=== PATIENT | male | born 1970 | race African-American/Black ===

== ENCOUNTER 2016-09-14 22:58 | Inpatient (IN) | payer OTHER ==
[~2016-09-14] VITALS: Ht 165.1 cm; Wt 52.9 kg
[2016-09-14] MEDS ORDERED: SOD CHLORIDE 0.9% 1,000 ML IV STA (23:17)
[2016-09-14] MEDS ORDERED: ONDANSETRON 4 MG INJ IV STA (23:38)
[2016-09-14 23:58] LABS: ADD SCAN DIFF NO
[2016-09-15] VITALS (12 sets, daily range): BP systolic 112–198; BP diastolic 60–122; PULSE 76–95; RESP 18–20; Ht 165.1 cm; Wt 52.9 kg
[2016-09-15 00:10] LABS: BASOPHILS % 0.5 % (0.0-2.0); EOSINOPHILS # 0.1 10^3/ul (0.0-0.5); EOSINOPHILS % 1.4 % (0.0-7.0); HEMATOCRIT 38.3 % (42.0-52.0); HEMOGLOBIN 13.4 g/dl (14.0-18.0); LYMPHOCYTES # 2.1 10^3/ul (0.8-2.9); LYMPHOCYTES % 38.2 % (15.0-51.0); MEAN CORPUSCULAR HEMOGLOBIN 33.1 pg (29.0-33.0); MEAN CORPUSCULAR VOLUME 94.6 fl (82.0-101.0); MEAN PLATELET VOLUME 9.9 fl (7.4-10.4); MONOCYTE # 0.4 10^3/ul (0.3-0.9); MONOCYTES % 7.3 % (0.0-11.0); NEUTROPHIL # 2.9 10^3/ul (1.6-7.5); NEUTROPHILS % 52.4 % (39.0-77.0); PLATELET COUNT 307 10^3/UL (140-415); RED BLOOD COUNT 4.05 10^6/ul (4.70-6.10); RED CELL DISTRIBUTION WIDTH 12.5 % (11.5-14.5); WHITE BLOOD COUNT 5.6 10^3/ul (4.8-10.8)
[2016-09-15 00:21] LABS: ALBUMIN 4.3 g/dl (3.3-4.9); ALBUMIN/GLOBULIN RATIO 1.13; BILIRUBIN,INDIRECT 0.2 mg/dl (0-1.1); BILIRUBIN,TOTAL 0.2 mg/dl (0.2-1.3); CALCIUM 10.4 mg/dl (8.4-10.2); CREATININE 0.82 mg/dl (0.61-1.24); POTASSIUM 4.3 mmol/L (3.5-5.1); TOTAL PROTEIN 8.1 g/dl (6.1-8.1)
[2016-09-15] MEDS ORDERED: CEFEPIME 2GM/50 ML (PMX) 50 ML IVPB STA (00:56)
[2016-09-15] MEDS ORDERED: SODIUM CHLORIDE 0.9% 1L BAG IV* STA (00:56)
[2016-09-15] MEDS ORDERED: ONDANSETRON 4 MG INJ IV STA (00:56)
[2016-09-15 00:58] LABS: TROPONIN-I 0.654 ng/ml (0.00-0.12)
[2016-09-15] MEDS ORDERED: VANCOMYCIN 1 GM (PMX) 250 ML IVPB ONE (01:00)
[2016-09-15] MEDS ORDERED: METOCLOPRAMIDE 10 MG INJ IV ONE (01:30)
[2016-09-15] MEDS ORDERED: HYDROmorphONE 1 MG/ML SYG IV STA (01:32)
[2016-09-15] MEDS: ASPIRIN 81 MG TAB PO ONE ×2 (01:33→02:27)
--- NOTE | 2016-09-15 01:49 | RADRPT ---
PROCEDURE: Portable chest x-ray. CLINICAL INDICATION: Vomiting. TECHNIQUE: Portable AP view of the chest. COMPARISON: None. FINDINGS: No pulmonary edema or conolidation is identified. The patient is status post median sternotomy and C ABG. The cardiac silhouette is magnified. No pleural effusion is seen. There is no pneumothorax. IMPRESSION: 1. No evidence of acute cardiopulmonary disease. 2. Status post CABG. RPTAT: HTAR .Donovan Diane MD, MD Date Time Electronically viewed and signed by .Donovan Diane MD, on 09/15/2016 01:48 .R/
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
[2016-09-15] MEDS ORDERED: HYDROmorphONE 1 MG/ML SYG IV PRN (04:00)
[2016-09-15] MEDS: METOPROLOL 25 MG TAB PO SCH ×3 (04:00→20:27)
[2016-09-15] MEDS: LOSARTAN 50 MG TAB PO SCH ×2 (04:00→08:29)
[2016-09-15] MEDS: hydrALAzine 20 MG INJ IV PRN ×2 (04:24→15:34)
[2016-09-15] MEDS: NITROGLYCERIN 2% 1 GM OINT PKT TD SCH ×3 (04:24→20:28)
[2016-09-15] MEDS: PANTOPRAZOLE 40 MG INJ IV SCH ×2 (04:39→06:00)
[2016-09-15] MEDS: INSULIN ASPART [NOVOLOG] 3 ML PEN SC SCH ×6 (04:50→20:36)
[2016-09-15 07:14] LABS: ADD SCAN DIFF NO
[2016-09-15 07:18] LABS: BASOPHILS % 0.3 % (0.0-2.0); EOSINOPHILS % 0.4 % (0.0-7.0); HEMATOCRIT 34.5 % (42.0-52.0); HEMOGLOBIN 12.1 g/dl (14.0-18.0); LYMPHOCYTES # 1.5 10^3/ul (0.8-2.9); LYMPHOCYTES % 19.6 % (15.0-51.0); MEAN CORPUSCULAR HEMOGLOBIN 33.1 pg (29.0-33.0); MEAN CORPUSCULAR HGB CONC 35.1 g/dl (32.0-37.0); MEAN CORPUSCULAR VOLUME 94.3 fl (82.0-101.0); MEAN PLATELET VOLUME 9.1 fl (7.4-10.4); MONOCYTE # 0.4 10^3/ul (0.3-0.9); MONOCYTES % 5.9 % (0.0-11.0); NEUTROPHIL # 5.5 10^3/ul (1.6-7.5); NEUTROPHILS % 73.4 % (39.0-77.0); PLATELET COUNT 303 10^3/UL (140-415); RED BLOOD COUNT 3.66 10^6/ul (4.70-6.10); RED CELL DISTRIBUTION WIDTH 12.4 % (11.5-14.5); WHITE BLOOD COUNT 7.5 10^3/ul (4.8-10.8)
[2016-09-15 07:50] LABS: ALBUMIN 3.4 g/dl (3.3-4.9); ALBUMIN/GLOBULIN RATIO 1.17; BILIRUBIN,INDIRECT 0.2 mg/dl (0-1.1); BILIRUBIN,TOTAL 0.2 mg/dl (0.2-1.3); CALCIUM 9.3 mg/dl (8.4-10.2); CREATININE 0.72 mg/dl (0.61-1.24); POTASSIUM 3.9 mmol/L (3.5-5.1); TOTAL PROTEIN 6.3 g/dl (6.1-8.1)
[2016-09-15 09:04] LABS: OPIATES Negative (NEGATIVE)
[2016-09-15 09:09] LABS: ADD UMIC YES; URINE BILIRUBIN (Dip) NEGATIVE (NEGATIVE); URINE BLOOD (Dip) NEGATIVE (NEGATIVE); URINE COLOR LT. YELLOW (YELLOW); URINE GLUCOSE (Dip) >=1000 % (NEGATIVE); URINE KETONES (Dip) NEGATIVE (NEGATIVE); URINE LEUKOCYTE ESTERASE (Dip) NEGATIVE (NEGATIVE); URINE NITRITE (Dip) NEGATIVE (NEGATIVE); URINE TOTAL PROTEIN (Dip) 2+ (NEGATIVE); URINE UROBILINOGEN (Dip) 0.2 E.U./dL (0.1-1.0)
[2016-09-15 09:11] LABS: BARBITURATES Negative (NEGATIVE); BENZODIAZEPINES Negative (NEGATIVE); CANNABINOIDS Negative (NEGATIVE); COCAINE Negative (NEGATIVE)
[2016-09-15 09:36] LABS: URINE RBCS 0-2 /HPF (0)
[2016-09-15] MEDS ORDERED: LORAZEPAM 2 MG INJ IV PRN (10:00)
[2016-09-15] MEDS: HYDROmorphONE 1 MG/ML SYG IV PRN ×3 (10:37→21:44)
[2016-09-15] MEDS: MULTIVITAMINS 10 ML, THIAMINE 100 MG, FOLIC ACID 1 MG in SOD CHLORIDE 0.9% 1,000 ML IVPB SCH (11:44)
[2016-09-15] MEDS ORDERED: GLUCOSE GEL 15 GRAM TUBE BUCCAL PRN (16:00)
[2016-09-15] MEDS ORDERED: GLUCOSE GEL 15 GRAM TUBE PO PRN ×2 (16:00)
[2016-09-15] MEDS ORDERED: GLUCAGON 1 MG INJ IM PRN (16:00)
[2016-09-15] MEDS ORDERED: DEXTROSE 50% 50 ML SYRINGE IV PRN ×2 (16:00)
--- NOTE | 2016-09-15 17:50 | QN ---
Documentation Comment [id number] LUZ GALLEGOS MD September 15, 2016 17:50
[2016-09-15 19:57] LABS: CHOL/HDL RATIO 1.9 RATIO
[2016-09-15] MEDS: ONDANSETRON 4 MG INJ IV PRN (20:27)
--- NOTE | 2016-09-15 20:54 | RADRPT ---
Echocardiogram Report ADDENDUM Patient Name: JG LAW Gender: Male Date: 1970 Study Date: 15-Sep-2016 Global Compensation Director: Suzi Toribio [facility] Location: 5548 Ref. Physician: LUZ GALLEGOS Quality: Adequate Procedures: Transthoracic echocardiogram with complete 2D, M-Mode, and doppler examination. Indications: NSTEMI. 2D/M Mode Doppler Measurement Value Normal Ranges Measurement Value Normal Ranges LVIDd 2D 3.9 3.5 - 5.6 cm AV Peak Dominic 1.4 m/sec LVIDs 2D 3.0 2.1 - 4.1 cm AV Peak PG 8.0 mmHg FS 2D 24.9 % LVOT Peak Dominic 1.0 m/sec LVPWd 2D 1.1 0.6 - 1.1 cm LVOT Peak PG 4.0 mmHg IVSd 2D 1.0 0.6 - 1.1 cm MV E Peak Dominic 0.7 m/sec IVS/LVPW 2D 1.0 MV A Peak Dominic 1.0 m/sec AoR Diam 2D 2.8 2.0 - 3.7 cm MV E/A 0.8 LA/Ao 2D 1 0 - 1 MV Decel Time 173 msec EDV 2D 60.7 cm3 MV E/A 0.8 ESV 2D 25.7 cm3 TR Peak Dominic 2.4 m/sec LA Dimen 2D 3.6 2.3 - 4.0 cm TR Peak PG 23.0 mmHg RVSP 26.0 mmHg Findings Left Ventricle: Normal left ventricular cavity size. Mild concentric left ventricular hypertrophy. Mild left ventricular systolic dysfunction. Ejection fraction is visually estimated at 4550 %. Tissue Doppler/Mitral Doppler indices are consistent with impaired relaxation (Stage I diastolic dysfunction). Right Ventricle: Normal right ventricular size. Normal right ventricular systolic function. Left Atrium: The left atrium is normal in size. Right Atrium: The right atrium is normal in size. Mitral Valve: Mitral valve leaflets appear mildly thickened. Mild mitral annular calcification. Trace mitral regurgitation. Aortic Valve: No significant aortic stenosis or insufficiency. Aortic cusps appear mildly calcified. Tricuspid Valve: Normal appearance of the tricuspid valve. Estimated peak PA systolic pressure 26 mmHg. There is trace tricuspid regurgitation. Pulmonic Valve: Normal pulmonic valve appearance. There is trace pulmonic regurgitation. Pericardium: Normal pericardium with no significant pericardial effusion. Aorta: Normal aortic root. IVC: Normal size and normal respiratory collapse consistent with normal right atrial pressure. Conclusions Normal left ventricular cavity size. Mild concentric left ventricular hypertrophy. Mild left ventricular systolic dysfunction. Ejection fraction is visually estimated at 45-50 %. Tissue Doppler/Mitral Doppler indices are consistent with impaired relaxation (Stage I diastolic dysfunction). Mitral valve leaflets appear mildly thickened. Mild mitral annular calcification. Trace mitral regurgitation. Normal appearance of the tricuspid valve. Estimated peak PA systolic pressure 26 mmHg. There is trace tricuspid regurgitation. Normal pulmonic valve appearance. There is trace pulmonic regurgitation. Electronically Signed By: Daron Green 19-Sep-2016 13:52:03 -0700 [ADDENDUM] Patient Name: JG LAW Study Date: 15-Sep-2016 [id number]
[2016-09-15] MEDS ORDERED: CLONIDINE 0.1 MG/24 HR PATCH TRANSDERM SCH (21:00)
--- NOTE | 2016-09-15 22:54 | HP ---
DATE OF ADMISSION: 09/15/2016 HISTORY OF PRESENT ILLNESS: A 45-year-old male with history of pancreatitis, has been drinking alcohol, presented complaining of chest pain. The patient's blood pressure 147/83. The patient has hematocrit 34.5. The patient's glucose 254. Troponin 0.406. The patient also has troponin 0.536. The patient's chest x-ray shows no evidence of acute cardiopulmonary disease, status post CABG. The patient's EKG shows sinus rhythm with in the inferior leads and nonspecific ST-T changes. PAST MEDICAL HISTORY: Positive for pancreatitis. The patient has no diabetes, hypertension. ALLERGIES: MORPHINE. SOCIAL HISTORY: Positive for smoking and drinking. MEDICATIONS AT HOME: None. FAMILY HISTORY: Positive for hypertension. REVIEW OF SYSTEMS: HEENT: Unremarkable. RESPIRATORY: Unremarkable. CARDIOVASCULAR: Unremarkable. ABDOMEN: As mentioned above. GENITOURINARY: Unremarkable. MUSCULOSKELETAL: Unremarkable. PHYSICAL EXAMINATION: GENERAL: The patient is awake, alert. VITAL SIGNS: Mentioned above. HEENT: Head is atraumatic, normocephalic. Pupils equal, reactive to light. NECK: Supple. No JVD. LUNGS: Clear. CARDIOVASCULAR: S1, S2 normal. ABDOMEN: Soft, nontender. Bowel sounds positive. No palpable mass. EXTREMITIES: No cyanosis, clubbing, edema. CENTRAL NERVOUS SYSTEM: The patient is awake, alert. No focal deficit. IMPRESSION: 1. The patient has uncontrolled diabetes mellitus. 2. Chest pain, rule out myocardial infarction. 3. Alcohol abuse. 4. Positive troponin. PLAN: Continue to give this patient as tolerated diet. The patient is currently on: 1. Banana bag. 2. Cefepime. 3. Vancomycin once. 4. Aspirin. 5. Hydromorphone. 6. Lorazepam. 7. Reglan. 8. Zofran. 9. Protonix. Obtain 2D echo and cardiology consultation, treatment, nitroglycerin p.r.n., banana bag, Ativan. Orders were done. Dictated By: LUZ GALLEGOS MD BS/NTS Conf#: [id number] DID#: [id number] MTDD
[2016-09-16] VITALS (13 sets, daily range): BP systolic 111–188; BP diastolic 69–117; PULSE 71–91; RESP 17–21
--- NOTE | 2016-09-16 00:39 | CONS ---
DATE OF ADMISSION: 09/15/2016 DATE OF CONSULTATION: 09/15/2016 TYPE OF CONSULTATION: Cardiology. REASON FOR CONSULTATION: Positive troponin concerning for non-ST elevation myocardial infarction, a ssess significance. REQUESTING PHYSICIAN: Arvind Gallegos MD HISTORY OF PRESENT ILLNESS: Mr. Dowd is a 45-year-old male with history of hypertension, dyslipid emia, diabetes mellitus, coronary artery disease, status post coronary bypass graft surgery 12 years prior, history of substance abuse with heroin, ongoing tobacco usage, ETOH abuse who initially pres ented with complaints of upper epigastric and chest pain described as a burning sensation occurring at rest after binge drinking. Upon arrival in the emergency department, temperature 97.7, blood pre ssure 169/100, pulse 83, respiratory rate 18, saturating 100%. The patient's labs revealed a white cell count of 5.6, hemoglobin 13.4, platelet count of 307. Sodium 134, potassium 4.3, creatinine 0. 82, BUN 15, glucose 526, AST 43, ALT 36. Troponin positive at 0.654. UA negative. Tox screen nega tive. Lipase 2202. The patient underwent a chest x-ray revealing no evidence of acute coronary art millie disease, status post CABG. The patient's electrocardiogram revealed sinus rhythm, rate 82, norm al axis, normal intervals, inferior biphasic T-wave abnormalities and T-wave inversion in lead V3. The patient subsequently admitted to the floor and since admit to the floor has continued to have ep igastric and chest pain. The patient has had troponins trending down to 0.406. PAST MEDICAL HISTORY: As above in HPI. MEDICATIONS CURRENTLY IN HOSPITAL: 1. Insulin sliding scale. 2. Dilaudid p.r.n. 3. Ativan p.r.n. 4. Hydralazine IV push p.r.n. 5. Nitro paste 1 inch q.12. 6. Losartan 50 mg daily. 7. Metoprolol 25 mg daily. 8. Protonix 40 mg IV daily. ALLERGIES: MORPHINE. SOCIAL HISTORY: Positive tobacco, positive ETOH abuse, history of illicit substance use. FAMILY HISTORY: No history of sudden cardiac or early CAD. REVIEW OF SYSTEMS: As above in HPI. CONSTITUTIONAL: No fevers, chills. PULMONARY: No current shortness of breath. CARDIOVASCULAR: Chest pain, positive troponin. GASTROINTESTINAL: Abdominal pain, pancreatitis. GENITOURINARY: No hematuria. MUSCULOSKELETAL: No significant myalgias, arthralgias. ENDOCRINE: Diabetes mellitus. PHYSICAL EXAMINATION: VITAL SIGNS: Temperature 98.2, blood pressure 169/96, pulse 83, respiratory rate 18, saturating 98% . GENERAL: The patient is alert, awake, complaining of epigastric abdominal pain and chest pain. NECK: JVP approximately 8 cm water. CHEST: Fair air movement throughout, mildly decreased at bases. HEART: Regular rate, rhythm. Normal S1, S2. I/ systolic murmur. Nondisplaced PMI. ABDOMEN: Hypoactive bowel sounds. Diffuse tenderness to palpation greatest in the epigastric regio n. EXTREMITIES: No pitting edema. Pulses 1+ bilaterally at posterior tibial. LABORATORY DATA: As above in HPI. Most recently from today: Sodium 136, potassium 3.9, creatinine of 0.7, BUN 12, glucose 318. Troponin down to 0.406. IMAGING STUDIES: As above in HPI. No further imaging studies for my review at this time. ELECTROCARDIOGRAM: As above in HPI. No further electrocardiograms for my review at this time. IMPRESSION: 1. Positive troponin concerning for non-ST elevation myocardial infarction, assess significance. 2. Chest pain, assess for true non-ST myocardial infarction versus possible type 2 infarction in th e setting of pancreatitis. 3. Hypertension, uncontrolled. 4. Pancreatitis. 5. Diabetes mellitus with uncontrolled blood sugars. 6. Anemia. 7. History of substance abuse. 8. Ongoing tobacco usage. 9. Ethyl alcohol abuse. RECOMMENDATIONS: 1. At this time would maintain the patient on telemetry monitoring to follow rhythm and rate contro l closely. 2. Will write for aspirin as patient is able to take and will place clonidine patch on the patient to improve overall systolic blood pressure control and continue the patient's nitro paste at this ti me. 3. Check a 2D echo to further assess patient's ejection fraction, wall motion, rule out any major v alve abnormalities. 4. Will continue to trend the patient's cardiac enzymes, assess for any significant ongoing cardiac damage. 5. Will change the patient's beta isaac to b.i.d. dosing and will continue it as the patient is a ble to tolerate. 6. Ongoing evaluation of patient's pancreatitis per PMD and GI evaluation. Thank you for allowing me to take part in the care of this patient. I will continue to follow very closely with you with recommendations to be made as the patient progresses through his inpatient hos pital clinical course. Dictated By: JHONATAN SOLIS/LU Conf#: [id number] DID#: [id number] CC: ARVIND GALLEGOS MD;*EndCC*
[2016-09-16] MEDS: POTASSIUM CHLORIDE 10 MEQ in DEXTROSE 5%-0.9% NACL 1,000 ML IV SCH ×2 (01:14→17:25)
[2016-09-16 01:30] LABS: CK-MB 2.51 ng/ml (0.0-2.4); TROPONIN-I 0.306 ng/ml (0.00-0.12)
[2016-09-16] MEDS ORDERED: ACCU-CHEK XX SCH ×2 (02:00)
[2016-09-16] MEDS: ACCU-CHEK XX SCH (02:00)
[2016-09-16] MEDS: HYDROmorphONE 1 MG/ML SYG IV PRN ×4 (03:57→20:07)
[2016-09-16] MEDS: PANTOPRAZOLE 40 MG INJ IV SCH (05:13)
[2016-09-16 08:06] LABS: ADD SCAN DIFF NO
[2016-09-16 08:11] LABS: BASOPHILS % 0.1 % (0.0-2.0); EOSINOPHILS # 0.1 10^3/ul (0.0-0.5); EOSINOPHILS % 0.7 % (0.0-7.0); HEMATOCRIT 41.4 % (42.0-52.0); HEMOGLOBIN 14.1 g/dl (14.0-18.0); LYMPHOCYTES # 1.4 10^3/ul (0.8-2.9); LYMPHOCYTES % 20.3 % (15.0-51.0); MEAN CORPUSCULAR HEMOGLOBIN 32.6 pg (29.0-33.0); MEAN CORPUSCULAR HGB CONC 34.1 g/dl (32.0-37.0); MEAN CORPUSCULAR VOLUME 95.8 fl (82.0-101.0); MEAN PLATELET VOLUME 9.5 fl (7.4-10.4); MONOCYTE # 0.6 10^3/ul (0.3-0.9); MONOCYTES % 8.2 % (0.0-11.0); NEUTROPHILS % 70.3 % (39.0-77.0); PLATELET COUNT 309 10^3/UL (140-415); RED BLOOD COUNT 4.32 10^6/ul (4.70-6.10); RED CELL DISTRIBUTION WIDTH 12.7 % (11.5-14.5); WHITE BLOOD COUNT 7.1 10^3/ul (4.8-10.8)
[2016-09-16] MEDS: LOSARTAN 50 MG TAB PO SCH (08:26)
[2016-09-16] MEDS: ASPIRIN (EC) 81 MG TAB PO SCH (08:27)
[2016-09-16] MEDS: METOPROLOL 25 MG TAB PO SCH ×2 (08:27→20:09)
[2016-09-16] MEDS: NITROGLYCERIN 2% 1 GM OINT PKT TD SCH ×2 (08:27→20:08)
[2016-09-16 08:29] LABS: ALBUMIN 3.4 g/dl (3.3-4.9); BILIRUBIN,INDIRECT 0.5 mg/dl (0-1.1); BILIRUBIN,TOTAL 0.5 mg/dl (0.2-1.3); CREATININE 0.6 mg/dl (0.61-1.24); TOTAL PROTEIN 6.8 g/dl (6.1-8.1)
[2016-09-16] MEDS: INSULIN ASPART [NOVOLOG] 3 ML PEN SC SCH ×4 (08:31→20:12)
[2016-09-16] MEDS: MULTIVITAMINS 10 ML, THIAMINE 100 MG, FOLIC ACID 1 MG in SOD CHLORIDE 0.9% 1,000 ML IVPB SCH (08:32)
[2016-09-16 08:53] LABS: CHOL/HDL RATIO 2.4 RATIO; CK-MB 2.46 ng/ml (0.0-2.4); TROPONIN-I 0.247 ng/ml (0.00-0.12)
--- NOTE | 2016-09-16 10:16 | CONS ---
Date/Time of Note Date/Time of Note DATE: 09/16/16 TIME: 10:14 Assessment/Plan Assessment/Plan Additional Assessment/Plan 1. Positive troponin concerning for non-ST elevation myocardial infarction, assess significance- no cp now, con't HTN Rx 2. Chest pain, assess for true non-ST myocardial infarction versus possible type 2 infarction in the setting of pancreatitis- better 3. Hypertension, uncontrolle- add Rx now 4. Pancreatitis. 5. Diabetes mellitus with uncontrolled blood sugars. 6. Anemia. 7. History of substance abuse - d/c advised 8. Ongoing tobacco usage. 9. Ethyl alcohol abuse. Consultation Date/Type/Reason Admit Date/Time September 15, 2016 at 01:56 Initial Consult Date 24 HR Interval Summary Free Text/Dictation No acute change - BP on high side - will follow. ROS: No fever, no chills, no nausea, no vomiting, no diarrhea/constipation No recent weight changes No chest pain, no PND, no orthopnea No dizziness, blurred vision No thirst, no heat or cold intolerance Exam/Review of Systems Vital Signs Vitals Vital Signs Date Time Temp Pulse Resp B/P Pulse Ox O2 Delivery O2 Flow Rate FiO2 09/16/16 08:34 85 09/16/16 08:01 98.0 18 188/117 100 09/15/16 04:57 Room Air Intake and Output 09/15/16 09/15/16 09/16/16 15:00 23:00 07:00 Intake Total 2250 ml 400 ml Output Total 900 ml 1100 ml Balance 1350 ml -700 ml Exam General: WN/WD/NAD, AOx -3 HEENT: Unicetric/atraumatic/EOMI (follows commands) NECK: JVD elevated, no thyromegaly Lymph: no lymphadenopathy HEART: regular with no S3, II/ systolic murmur at apex LUNGS: Coarse sounds ABD: soft, NT, ND, +BS : Intact Neuro: non focal SKIN: chronic changes EXT: trace edema Results Result Diagram: 09/16/1672609/16/16726 Results 24 hrs Laboratory Tests Test 09/15/16 11:45 09/15/16 11:59 09/15/16 17:17 09/15/16 18:20 Bedside Glucose 266 H 254 H Troponin I 0.406 *H 0.334 *H Test 09/15/16 20:11 09/16/16 00:45 09/16/16 02:23 09/16/16 07:27 Bedside Glucose 212 270 H Creatine Kinase 87 82 Creatine Kinase Index 2.9 3.0 Creatinine Kinase MB (Mass) 2.51 H 2.46 H Troponin I 0.306 *H 0.247 *H White Blood Count 7.1 Red Blood Count 4.32 L Hemoglobin 14.1 Hematocrit 41.4 L Mean Corpuscular Volume 95.8 Mean Corpuscular Hemoglobin 32.6 Mean Corpuscular Hemoglobin Concent 34.1 Red Cell Distribution Width 12.7 Platelet Count 309 Mean Platelet Volume 9.5 Neutrophils % 70.3 Lymphocytes % 20.3 Monocytes % 8.2 Eosinophils % 0.7 Basophils % 0.1 Nucleated Red Blood Cells % 0.0 Neutrophils # 5.0 Lymphocytes # 1.4 Monocytes # 0.6 Eosinophils # 0.1 Basophils # 0.0 Nucleated Red Blood Cells # 0.0 Sodium Level 130 L Potassium Level 4.0 Chloride Level 100 Carbon Dioxide Level 25 Anion Gap 9 Blood Urea Nitrogen 10 Creatinine 0.60 L Glucose Level 247 H Calcium Level 10.0 Total Bilirubin 0.5 Direct Bilirubin 0.00 Indirect Bilirubin 0.5 Aspartate Amino Transf (AST/SGOT) 32 Alanine Aminotransferase (ALT/SGPT) 29 Alkaline Phosphatase 100 Total Protein 6.8 Albumin 3.4 Globulin 3.40 H Albumin/Globulin Ratio 1.00 Triglycerides Level 136 Cholesterol Level 230 H LDL Cholesterol, Calculated 110 # HDL Cholesterol 93 #H Cholesterol/HDL Ratio 2.4 Lipase 1465 H Test 09/16/16 08:06 Bedside Glucose 222 H Medications Medications Current Medications Hydralazine HCl (Apresoline) 10 mg Q6H PRN IV ELEVATED BLOOD PRESSURE Last administered on 09/15/16 15:34; Admin Dose 10 MG; Start 09/15/16 at 04:00 Nitroglycerin (Nitroglycerin 2% Oint) 1 inch Q12 TD Last administered on 08:27; Admin Dose 1 INCH; Start 09/15/16 at 04:00 Losartan Potassium (Cozaar) 50 mg DAILY PO Last administered on 09/16/16 08:26 ; Admin Dose 50 MG; Start 09/15/16 at 04:00 Pantoprazole (Protonix Iv) 40 mg DAILY@06 IV Last administered on 09/16/16 05: 13; Admin Dose 40 MG; Start 09/15/16 at 04:00 Diagnostic Test (Pha) (Accu-Chek) 1 ea 02 XX ; Start 09/16/16 at 02:00 Lorazepam 1 mg 1 mg Q4 PRN IV CONTROL WITHDRAWAL SYMPTOMS; Start 09/15/16 at 10: 00 Multivitamins/ Thiamine HCl/ Folic Acid/Sodium Chloride (Mvi Adult/ Vitamin B1/ Folic Acid/NS) 1,011.2 ml @ 125 mls/ hr DAILY@09 IVPB Last administered on 09/16 08:32; Admin Dose 125 MLS/HR; Start 09/15/16 at 12:00; Stop 09/16/16 at 17: 06 Hydromorphone HCl (Dilaudid) 1 mg Q4H PRN IV PAIN Last administered on 09:07; Admin Dose 1 MG; Start 09/15/16 at 10:30 Miscellaneous Information 1 ea NOTE XX ; Start 09/15/16 at 16:00 Glucose (Glutose) 15 gm Q15M PRN PO DECREASED GLUCOSE; Start 09/15/16 at 16:00 Glucose (Glutose) 22.5 gm Q15M PRN PO DECREASED GLUCOSE; Start 09/15/16 at 16:00 Dextrose (D50w Syringe) 25 ml Q15M PRN IV DECREASED GLUCOSE; Start 09/15/16 at 16:00 Dextrose (D50w Syringe) 50 ml Q15M PRN IV DECREASED GLUCOSE; Start 09/15/16 at 16:00 Glucagon (Glucagen) 1 mg Q15M PRN IM DECREASED GLUCOSE; Start 09/15/16 at 16:00 Glucose (Glutose) 15 gm Q15M PRN BUCCAL DECREASED GLUCOSE; Start 09/15/16 at 16: 00 Metoprolol Tartrate (Lopressor) 25 mg BID PO Last administered on 09/16/16 08: 27; Admin Dose 25 MG; Start 09/15/16 at 21:00 Aspirin (Halfprin) 81 mg DAILY PO Last administered on 09/16/16 08:27; Admin Dose 81 MG; Start 09/16/16 at 09:00 Clonidine HCl (Catapres-Tts 1 Patch) 1 patch Q7D TRANSDERM Last administered on 09/15/16 21:48; Admin Dose 1 PATCH; Start 09/15/16 at 21:00 Ondansetron HCl 4 mg 4 mg Q6H PRN IV NAUSEA AND/OR VOMITING Last administered on 09/15/16 20:27; Admin Dose 4 MG; Start 09/15/16 at 20:30 Potassium Chloride/Dextrose/ Sodium Chloride (KCl/D5-NS) 1,005 ml @ 50 mls/hr Q20H6M IV Last administered on 09/16/16 01:14; Admin Dose 50 MLS/HR; Start 09/15 at 23:30 ANILA MONROY MD September 16, 2016 10:16
--- NOTE | 2016-09-16 12:28 | CONS ---
DATE OF ADMISSION: 09/15/2016 DATE OF CONSULTATION: TYPE OF CONSULTATION: Gastroenterology. Dear Dr. Raines: Thank you for your referral. HISTORY OF PRESENT ILLNESS: The patient is a 45-year-old male with a history of alcohol abuse and p ancreatitis in the past, comes to the hospital complaining of abdominal pain, nausea, vomiting and w eight loss. In the ER, he was evaluated. His lipase was high and he was admitted for further manag ement and treatment. The patient also had a history of coronary artery bypass graft, diabetes melli tus and his troponin level was high. He denies GI bleeding, no fever, no chills. No shortness of b reath. PAST MEDICAL HISTORY: Multiple attacks of pancreatitis in the past, all related to alcoholism as pe r the patient. History of diabetes mellitus. ALLERGIES: MORPHINE. SOCIAL HISTORY: Positive for smoking and drinking, and also takes marijuana. MEDICATIONS AT HOME: None. FAMILY HISTORY: Positive for hypertension. REVIEW OF SYSTEMS: Otherwise negative. PHYSICAL EXAMINATION GENERAL: Thin, well-nourished, not in distress. VITAL SIGNS: Stable. HEENT: Unremarkable. NECK: Supple, no thyromegaly, no lymphadenopathy. CARDIOVASCULAR: No murmur, gallop or click. LUNGS: Clear. ABDOMEN: Soft. Mild tenderness in epigastric area. Bowel sounds good. No mass felt per abdomen. EXTREMITIES: No edema. CENTRAL NERVOUS SYSTEM: Grossly within normal limits. IMPRESSION: 1. Pancreatitis, recurrent headache. 2. Diabetes mellitus. 3. Positive troponin. 4. Alcohol abuse. 5. History of coronary artery bypass graft. 6. Tobacco usage. 7. The patient's LFTs all within normal limits. PLAN: 1. NPO. 2. We will get ultrasound of the abdomen to make sure there is no gallstone. 3. Continue cardiac care. Once the lipase comes on we will start him slowly on liquid diet and adv ance it as tolerated by the patient. 4. In the interim, continue IV hydration and pain management. Dictated By: TANNA BRODY/LU Conf#: [id number] DID#: [id number]
--- NOTE | 2016-09-16 15:55 | RADRPT ---
PROCEDURE: US Abdomen (right upper quadrant). CLINICAL INDICATION: Right upper quadrant abdomen pain. History of pancreatitis. TECHNIQUE: Multiple real-time longitudinal and transverse images of the right upper quadrant of th e abdomen were acquired utilizing a curved array transducer. Images were reviewed on a high-resoluti on PACS workstation. COMPARISON: None FINDINGS: The liver is normal in size and normal in echogenicity. There is no focal hepatic lesion. Color Doppler and pulsed Doppler sonography demonstrate normal an tegrade flow in the portal vein. Gallstones are present in the gallbladder neck. There is no gallbladder wall thickening or fluid ar ound the gallbladder. The bile ducts are normal with the common bile duct measuring 4.5 mm in diameter. The visualized portions of the pancreas are unremarkable with obscuration of the tail of the pancrea s. There is a small amount of free fluid adjacent to the liver. The right kidney measures 9.0 cm. There is normal echogenicity of the right kidney. There is no p erinephric fluid collection. No hydronephrosis, mass, or calculus is seen. IMPRESSION: 1. Gallstones in the gallbladder neck. No evidence of cholecystitis. 2. Small amount of free fluid adjacent to the liver. 3. Otherwise normal right upper quadrant abdomen ultrasound. RPTAT: QQ .Arnel Garcia MD, MD Date Time Electronically viewed and signed by .Arnel Garcia MD, on 09/16/2016 15:54 .R/
[2016-09-16] MEDS: hydrALAzine 20 MG INJ IV PRN (19:20)
--- NOTE | 2016-09-16 20:51 | PN ---
Date/Time of Note Date/Time of Note DATE: 09/16/16 TIME: 20:50 Assessment/Plan VTE Prophylaxis VTE Prophylaxis Intervention: other Lines/Catheters IV C[facility]ter Type (from [facility]): [facility] Urinary Cath still in place: No Assessment/Plan Chief Complaint/Hosp Course IMPRESSION: 1. The patient has uncontrolled diabetes mellitus. 2. Chest pain, rule out myocardial infarction. 3. Alcohol abuse. 4. Positive troponin. 5 pancreatitis 6 htn plan per gi and cardio Problems: Subjective 24 Hr Interval Summary Subjective hx not possible: other (abd pain +) Exam/Review of Systems Vital Signs Vitals Vital Signs Date Time Temp Pulse Resp B/P Pulse Ox O2 Delivery O2 Flow Rate FiO2 09/16/16 20:00 98.7 86 17 180/100 99 09/15/16 04:57 Room Air Intake and Output 09/15/16 09/15/16 09/16/16 14:59 22:59 06:59 Intake Total 2250 ml 400 ml Output Total 900 ml 1100 ml Balance 1350 ml -700 ml Exam Neck: supple Respiratory: clear to auscultation Cardiovascular: regular rate and rhythm Gastrointestinal: soft Musculoskeletal: nl extremities to inspection Extremities: normal pulses Results Result Diagram: 09/16/1672609/16/16726 Results 24 hrs Laboratory Tests Test 09/16/16 00:45 09/16/16 02:23 09/16/16 07:27 09/16/16 08:06 Creatine Kinase 87 82 Creatine Kinase Index 2.9 3.0 Creatinine Kinase MB (Mass) 2.51 H 2.46 H Troponin I 0.306 *H 0.247 *H Bedside Glucose 270 H 222 H White Blood Count 7.1 Red Blood Count 4.32 L Hemoglobin 14.1 Hematocrit 41.4 L Mean Corpuscular Volume 95.8 Mean Corpuscular Hemoglobin 32.6 Mean Corpuscular Hemoglobin Concent 34.1 Red Cell Distribution Width 12.7 Platelet Count 309 Mean Platelet Volume 9.5 Neutrophils % 70.3 Lymphocytes % 20.3 Monocytes % 8.2 Eosinophils % 0.7 Basophils % 0.1 Nucleated Red Blood Cells % 0.0 Neutrophils # 5.0 Lymphocytes # 1.4 Monocytes # 0.6 Eosinophils # 0.1 Basophils # 0.0 Nucleated Red Blood Cells # 0.0 Sodium Level 130 L Potassium Level 4.0 Chloride Level 100 Carbon Dioxide Level 25 Anion Gap 9 Blood Urea Nitrogen 10 Creatinine 0.60 L Glucose Level 247 H Calcium Level 10.0 Total Bilirubin 0.5 Direct Bilirubin 0.00 Indirect Bilirubin 0.5 Aspartate Amino Transf (AST/SGOT) 32 Alanine Aminotransferase (ALT/SGPT) 29 Alkaline Phosphatase 100 Total Protein 6.8 Albumin 3.4 Globulin 3.40 H Albumin/Globulin Ratio 1.00 Triglycerides Level 136 Cholesterol Level 230 H LDL Cholesterol, Calculated 110 # HDL Cholesterol 93 #H Cholesterol/HDL Ratio 2.4 Lipase 1465 H Test 09/16/16 12:41 09/16/16 17:14 09/16/16 20:12 Bedside Glucose 181 197 176 Medications Medications Current Medications Hydralazine HCl (Apresoline) 10 mg Q6H PRN IV ELEVATED BLOOD PRESSURE Last administered on 09/16/16 19:20; Admin Dose 10 MG; Start 09/15/16 at 04:00 Nitroglycerin (Nitroglycerin 2% Oint) 1 inch Q12 TD Last administered on 20:08; Admin Dose 1 INCH; Start 09/15/16 at 04:00 Losartan Potassium (Cozaar) 50 mg DAILY PO Last administered on 09/16/16 08:26 ; Admin Dose 50 MG; Start 09/15/16 at 04:00 Pantoprazole (Protonix Iv) 40 mg DAILY@06 IV Last administered on 09/16/16 05: 13; Admin Dose 40 MG; Start 09/15/16 at 04:00 Diagnostic Test (Pha) (Accu-Chek) 1 ea 02 XX ; Start 09/16/16 at 02:00 Lorazepam (Ativan) 1 mg Q4 PRN IV CONTROL WITHDRAWAL SYMPTOMS; Start 09/15/16 at 10:00 Hydromorphone HCl (Dilaudid) 1 mg Q4H PRN IV PAIN Last administered on 20:07; Admin Dose 1 MG; Start 09/15/16 at 10:30 Miscellaneous Information 1 ea NOTE XX ; Start 09/15/16 at 16:00 Glucose (Glutose) 15 gm Q15M PRN PO DECREASED GLUCOSE; Start 09/15/16 at 16:00 Glucose (Glutose) 22.5 gm Q15M PRN PO DECREASED GLUCOSE; Start 09/15/16 at 16:00 Dextrose (D50w Syringe) 25 ml Q15M PRN IV DECREASED GLUCOSE; Start 09/15/16 at 16:00 Dextrose (D50w Syringe) 50 ml Q15M PRN IV DECREASED GLUCOSE; Start 09/15/16 at 16:00 Glucagon (Glucagen) 1 mg Q15M PRN IM DECREASED GLUCOSE; Start 09/15/16 at 16:00 Glucose (Glutose) 15 gm Q15M PRN BUCCAL DECREASED GLUCOSE; Start 09/15/16 at 16: 00 Metoprolol Tartrate (Lopressor) 25 mg BID PO Last administered on 09/16/16 20: 09; Admin Dose 25 MG; Start 09/15/16 at 21:00 Aspirin (Halfprin) 81 mg DAILY PO Last administered on 09/16/16 08:27; Admin Dose 81 MG; Start 09/16/16 at 09:00 Clonidine HCl (Catapres-Tts 1 Patch) 1 patch Q7D TRANSDERM Last administered on 09/15/16 21:48; Admin Dose 1 PATCH; Start 09/15/16 at 21:00 Ondansetron HCl 4 mg 4 mg Q6H PRN IV NAUSEA AND/OR VOMITING Last administered on 09/15/16 20:27; Admin Dose 4 MG; Start 09/15/16 at 20:30 Potassium Chloride/Dextrose/ Sodium Chloride (KCl/D5-NS) 1,005 ml @ 50 mls/hr Q20H6M IV Last administered on 09/16/16 17:25; Admin Dose 50 MLS/HR; Start 09/15 at 23:30 Nifedipine (Procardia Xl) 60 mg DAILY PO ; Start 09/17/16 at 09:00 Polyethylene Glycol (Miralax) 17 gm DAILY PRN PO CONSTIPATION; Start 09/16/16 at 20:00 LUZ GALLEGOS MD September 16, 2016 20:51
[2016-09-16] MEDS ORDERED: POLYETHYLENE GLYCOL 3350 119 GM POWDER PO SCH (21:00)
[2016-09-16] MEDS: POLYETHYLENE GLYCOL 17 GM PACKET PO PRN (21:41)
[2016-09-17] VITALS (12 sets, daily range): BP systolic 111–163; BP diastolic 62–93; PULSE 66–136; RESP 18–20
[2016-09-17] MEDS: ACCU-CHEK XX SCH (02:00)
[2016-09-17] MEDS: HYDROmorphONE 1 MG/ML SYG IV PRN ×5 (03:43→21:26)
[2016-09-17] MEDS: PANTOPRAZOLE 40 MG INJ IV SCH (05:18)
[2016-09-17 08:08] LABS: ALBUMIN 3.3 g/dl (3.3-4.9)
[2016-09-17 08:09] LABS: POTASSIUM 3.6 mmol/L (3.5-5.1)
[2016-09-17 08:11] LABS: BILIRUBIN,INDIRECT 0.5 mg/dl (0-1.1); BILIRUBIN,TOTAL 0.5 mg/dl (0.2-1.3); CREATININE 0.63 mg/dl (0.61-1.24); TOTAL PROTEIN 6.6 g/dl (6.1-8.1)
[2016-09-17 08:12] LABS: CALCIUM 9.7 mg/dl (8.4-10.2)
[2016-09-17] MEDS: INSULIN ASPART [NOVOLOG] 3 ML PEN SC SCH ×4 (08:39→21:31)
[2016-09-17] MEDS: POLYETHYLENE GLYCOL 17 GM PACKET PO PRN (08:41)
[2016-09-17] MEDS: NIFEdipine (XL) 60 MG TAB PO SCH (08:42)
[2016-09-17] MEDS: LOSARTAN 50 MG TAB PO SCH (08:43)
[2016-09-17] MEDS: NITROGLYCERIN 2% 1 GM OINT PKT TD SCH ×2 (08:43→21:29)
[2016-09-17] MEDS: ASPIRIN (EC) 81 MG TAB PO SCH (08:43)
[2016-09-17] MEDS: METOPROLOL 25 MG TAB PO SCH ×2 (08:43→21:28)
--- NOTE | 2016-09-17 14:47 | CONS ---
Date/Time of Note Date/Time of Note DATE: 09/17/16 TIME: 14:32 Assessment/Plan Assessment/Plan Chief Complaint/Hosp Course IMPRESSION: 1. Positive troponin concerning for non-ST elevation myocardial infarction, assess significance.-downtrended cardiac enzymes. EF 50% by echo this admit 2. Chest pain, assess for true non-ST myocardial infarction versus possible type 2 infarction in the setting of pancreatitis. C/O ongoing burning chest pain 3. Hypertension, uncontrolled. 4. Pancreatitis. 5. Diabetes mellitus with uncontrolled blood sugars. 6. Anemia. 7. History of substance abuse. 8. Ongoing tobacco usage. 9. Ethyl alcohol abuse. Recc: _tele -serial ecg's -Continue asa -Continue BB/clonidine TTS/procardia -Continue NTP -Contineu PPI -Lexiscan versus direct cath to determine significance of positive tropopnin once pancreatitis improved Problems: Consultation Date/Type/Reason Admit Date/Time September 15, 2016 at 01:56 Initial Consult Date 09/15/2016 Type of Consultation: Cardiology Reason for Consultation positive troponin Referring Provider: LUZ GALLEGOS Exam/Review of Systems Vital Signs Vitals Vital Signs Date Time Temp Pulse Resp B/P Pulse Ox O2 Delivery O2 Flow Rate FiO2 09/17/16 12:16 68 09/17/16 11:34 98.3 18 119/62 98 09/16/16 21:00 Room Air 2.0 Intake and Output 09/16/16 09/16/16 09/17/16 15:00 23:00 07:00 Intake Total 500 ml 1600 ml 500 ml Output Total 900 ml Balance 500 ml 1600 ml -400 ml Exam Review of Systems: CONSTITUTIONAL: No fevers, chills. PULMONARY: No sob CARDIOVASCULAR:C/O chest pain/palpitations GASTROINTESTINAL: No nausea/vomiting. GENITOURINARY: No hematuria/dysuria. MUSCULOSKELETAL: No myagias/arthalgias. PSYCHIATRIC: The patient denies depression. NEUROLOGIC: No weakness Constitutional: alert, oriented Psych: no complaints Head: normocephalic ENMT: mucosa pink and moist Neck: jvd (9 cm water), supple Respiratory: diminished breath sounds Cardiovascular: regular rate and rhythm Gastrointestinal: non-tender, soft Musculoskeletal: muscle tone (normal) Extremities: edema (none) Neurological: other (No focal deficits) Results Result Diagram: 09/16/16 0727 09/17/16 0659 Results 24 hrs Laboratory Tests Test 09/16/16 17:14 09/16/16 20:12 09/17/16 06:59 09/17/16 08:18 Bedside Glucose 197 176 241 H Sodium Level 133 L Potassium Level 3.6 Chloride Level 97 Carbon Dioxide Level 26 Anion Gap 14 Blood Urea Nitrogen 10 Creatinine 0.63 Glucose Level 300 H Calcium Level 9.7 Total Bilirubin 0.5 Direct Bilirubin 0.00 Indirect Bilirubin 0.5 Aspartate Amino Transf (AST/SGOT) 29 Alanine Aminotransferase (ALT/SGPT) 23 Alkaline Phosphatase 88 Total Protein 6.6 Albumin 3.3 Globulin 3.30 H Albumin/Globulin Ratio 1.00 Lipase 734 H Test 09/17/16 11:49 Bedside Glucose 257 H Medications Medications Current Medications Hydralazine HCl (Apresoline) 10 mg Q6H PRN IV ELEVATED BLOOD PRESSURE Last administered on 09/16/16 19:20; Admin Dose 10 MG; Start 09/15/16 at 04:00 Nitroglycerin (Nitroglycerin 2% Oint) 1 inch Q12 TD Last administered on 08:43; Admin Dose 1 INCH; Start 09/15/16 at 04:00 Losartan Potassium (Cozaar) 50 mg DAILY PO Last administered on 09/17/16 08:43 ; Admin Dose 50 MG; Start 09/15/16 at 04:00 Pantoprazole (Protonix Iv) 40 mg DAILY@06 IV Last administered on 09/17/16 05: 18; Admin Dose 40 MG; Start 09/15/16 at 04:00 Diagnostic Test (Pha) (Accu-Chek) 1 ea 02 XX ; Start 09/16/16 at 02:00 Lorazepam (Ativan) 1 mg Q4 PRN IV CONTROL WITHDRAWAL SYMPTOMS; Start 09/15/16 at 10:00 Hydromorphone HCl (Dilaudid) 1 mg Q4H PRN IV PAIN Last administered on 13:21; Admin Dose 1 MG; Start 09/15/16 at 10:30 Miscellaneous Information 1 ea NOTE XX ; Start 09/15/16 at 16:00 Glucose (Glutose) 15 gm Q15M PRN PO DECREASED GLUCOSE; Start 09/15/16 at 16:00 Glucose (Glutose) 22.5 gm Q15M PRN PO DECREASED GLUCOSE; Start 09/15/16 at 16:00 Dextrose (D50w Syringe) 25 ml Q15M PRN IV DECREASED GLUCOSE; Start 09/15/16 at 16:00 Dextrose (D50w Syringe) 50 ml Q15M PRN IV DECREASED GLUCOSE; Start 09/15/16 at 16:00 Glucagon (Glucagen) 1 mg Q15M PRN IM DECREASED GLUCOSE; Start 09/15/16 at 16:00 Glucose (Glutose) 15 gm Q15M PRN BUCCAL DECREASED GLUCOSE; Start 09/15/16 at 16: 00 Metoprolol Tartrate (Lopressor) 25 mg BID PO Last administered on 09/17/16 08: 43; Admin Dose 25 MG; Start 09/15/16 at 21:00 Aspirin (Halfprin) 81 mg DAILY PO Last administered on 09/17/16 08:43; Admin Dose 81 MG; Start 09/16/16 at 09:00 Clonidine HCl (Catapres-Tts 1 Patch) 1 patch Q7D TRANSDERM Last administered on 09/15/16 21:48; Admin Dose 1 PATCH; Start 09/15/16 at 21:00 Ondansetron HCl 4 mg 4 mg Q6H PRN IV NAUSEA AND/OR VOMITING Last administered on 09/15/16 20:27; Admin Dose 4 MG; Start 09/15/16 at 20:30 Potassium Chloride/Dextrose/ Sodium Chloride (KCl/D5-NS) 1,005 ml @ 50 mls/hr Q20H6M IV Last administered on 09/16/16 17:25; Admin Dose 50 MLS/HR; Start 09/15 at 23:30 Nifedipine (Procardia Xl) 60 mg DAILY PO Last administered on 09/17/16 08:42; Admin Dose 60 MG; Start 09/17/16 at 09:00 Polyethylene Glycol (Miralax) 17 gm DAILY PRN PO CONSTIPATION Last administered on 09/17/16 08:41; Admin Dose 17 GM; Start 09/16/16 at 20:00 JHONATAN TURNER September 17, 2016 14:44
--- NOTE | 2016-09-17 15:56 | CONS ---
Date/Time of Note Date/Time of Note DATE: 09/17/16 TIME: 15:55 Assessment/Plan Assessment/Plan Additional Assessment/Plan IMPRESSION: 1. Pancreatitis, recurrent, sonogram of the abdomen is negative except for a gallstone, clinically better 2. Diabetes mellitus. 3. Positive troponin. 4. Alcohol abuse. 5. History of coronary artery bypass graft. 6. Tobacco usage. 7. The patient's LFTs all within normal limits. Plan Advance the diet IV fluid Pain management Consultation Date/Type/Reason Admit Date/Time September 15, 2016 at 01:56 Initial Consult Date Type of Consultation: Cardiology Referring Provider: LUZ GALLEGOS MD 24 HR Interval Summary Free Text/Dictation No chest pain or shortness of breath Abdominal pain much better Patient is hungry and wants solid food Constitutional: improved Exam/Review of Systems Vital Signs Vitals Vital Signs Date Time Temp Pulse Resp B/P Pulse Ox O2 Delivery O2 Flow Rate FiO2 09/17/16 15:44 97.8 73 18 132/75 99 09/16/16 21:00 Room Air 2.0 Intake and Output 09/16/16 09/16/16 09/17/16 15:00 23:00 07:00 Intake Total 500 ml 1600 ml 500 ml Output Total 900 ml Balance 500 ml 1600 ml -400 ml Exam Constitutional: alert, oriented, well developed Psych: nl mood/affect, no complaints Head: atraumatic, normocephalic Eyes: EOMI, PERRL, nl conjunctiva, nl lids, nl sclera ENMT: nl external ears & nose, nl lips & teeth, nl nasal mucosa & septum Neck: non-tender, supple Respiratory: clear to auscultation, normal air movement Cardiovascular: nl pulses, regular rate and rhythm Gastrointestinal: nl liver, spleen, non-tender, soft Musculoskeletal: nl extremities to inspection, nl gait and stance Extremities: normal pulses Neurological: RF TEST ENGINEER II-XII intact, nl mental status, nl speech, nl strength Skin: nl turgor, No rash or lesions Lymph: nl lymph nodes Results Result Diagram: 09/16/16 0727 09/17/16 0659 Results 24 hrs Laboratory Tests Test 09/16/16 17:14 09/16/16 20:12 09/17/16 06:59 09/17/16 08:18 Bedside Glucose 197 176 241 H Sodium Level 133 L Potassium Level 3.6 Chloride Level 97 Carbon Dioxide Level 26 Anion Gap 14 Blood Urea Nitrogen 10 Creatinine 0.63 Glucose Level 300 H Calcium Level 9.7 Total Bilirubin 0.5 Direct Bilirubin 0.00 Indirect Bilirubin 0.5 Aspartate Amino Transf (AST/SGOT) 29 Alanine Aminotransferase (ALT/SGPT) 23 Alkaline Phosphatase 88 Total Protein 6.6 Albumin 3.3 Globulin 3.30 H Albumin/Globulin Ratio 1.00 Lipase 734 H Test 09/17/16 11:49 Bedside Glucose 257 H Medications Medications Current Medications Hydralazine HCl (Apresoline) 10 mg Q6H PRN IV ELEVATED BLOOD PRESSURE Last administered on 09/16/16 19:20; Admin Dose 10 MG; Start 09/15/16 at 04:00 Nitroglycerin (Nitroglycerin 2% Oint) 1 inch Q12 TD Last administered on 08:43; Admin Dose 1 INCH; Start 09/15/16 at 04:00 Losartan Potassium (Cozaar) 50 mg DAILY PO Last administered on 09/17/16 08:43 ; Admin Dose 50 MG; Start 09/15/16 at 04:00 Pantoprazole (Protonix Iv) 40 mg DAILY@06 IV Last administered on 09/17/16 05: 18; Admin Dose 40 MG; Start 09/15/16 at 04:00 Diagnostic Test (Pha) (Accu-Chek) 1 ea 02 XX ; Start 09/16/16 at 02:00 Lorazepam (Ativan) 1 mg Q4 PRN IV CONTROL WITHDRAWAL SYMPTOMS; Start 09/15/16 at 10:00 Hydromorphone HCl (Dilaudid) 1 mg Q4H PRN IV PAIN Last administered on 13:21; Admin Dose 1 MG; Start 09/15/16 at 10:30 Miscellaneous Information 1 ea NOTE XX ; Start 09/15/16 at 16:00 Glucose (Glutose) 15 gm Q15M PRN PO DECREASED GLUCOSE; Start 09/15/16 at 16:00 Glucose (Glutose) 22.5 gm Q15M PRN PO DECREASED GLUCOSE; Start 09/15/16 at 16:00 Dextrose (D50w Syringe) 25 ml Q15M PRN IV DECREASED GLUCOSE; Start 09/15/16 at 16:00 Dextrose (D50w Syringe) 50 ml Q15M PRN IV DECREASED GLUCOSE; Start 09/15/16 at 16:00 Glucagon (Glucagen) 1 mg Q15M PRN IM DECREASED GLUCOSE; Start 09/15/16 at 16:00 Glucose (Glutose) 15 gm Q15M PRN BUCCAL DECREASED GLUCOSE; Start 09/15/16 at 16: 00 Metoprolol Tartrate (Lopressor) 25 mg BID PO Last administered on 09/17/16 08: 43; Admin Dose 25 MG; Start 09/15/16 at 21:00 Aspirin (Halfprin) 81 mg DAILY PO Last administered on 09/17/16 08:43; Admin Dose 81 MG; Start 09/16/16 at 09:00 Clonidine HCl (Catapres-Tts 1 Patch) 1 patch Q7D TRANSDERM Last administered on 09/15/16 21:48; Admin Dose 1 PATCH; Start 09/15/16 at 21:00 Ondansetron HCl 4 mg 4 mg Q6H PRN IV NAUSEA AND/OR VOMITING Last administered on 09/15/16 20:27; Admin Dose 4 MG; Start 09/15/16 at 20:30 Potassium Chloride/Dextrose/ Sodium Chloride (KCl/D5-NS) 1,005 ml @ 50 mls/hr Q20H6M IV Last administered on 09/16/16 17:25; Admin Dose 50 MLS/HR; Start 09/15 at 23:30 Nifedipine (Procardia Xl) 60 mg DAILY PO Last administered on 09/17/16 08:42; Admin Dose 60 MG; Start 09/17/16 at 09:00 Polyethylene Glycol (Miralax) 17 gm DAILY PRN PO CONSTIPATION Last administered on 09/17/16 08:41; Admin Dose 17 GM; Start 09/16/16 at 20:00 Insulin Glargine (Lantus) 15 unit DAILY@20 SC ; Start 09/17/16 at 20:00 TANNA CASAS MD September 17, 2016 15:56
[2016-09-17] MEDS: POTASSIUM CHLORIDE 10 MEQ in DEXTROSE 5%-0.9% NACL 1,000 ML IV SCH (16:16)
[2016-09-17] MEDS: INSULIN GLARGINE [LANtus] 3 ML PEN SC SCH (21:32)
--- NOTE | 2016-09-17 23:42 | PN ---
Date/Time of Note Date/Time of Note DATE: 09/17/16 TIME: 23:41 Assessment/Plan VTE Prophylaxis VTE Prophylaxis Intervention: other Lines/Catheters IV [facility]from [facility] Peripheral IV Urinary Cath still in place: No Assessment/Plan Chief Complaint/Hosp Course IMPRESSION: 1. The patient has uncontrolled diabetes mellitus. 2. Chest pain, rule out myocardial infarction. 3. Alcohol abuse. 4. Positive troponin. 5 pancreatitis 6 htn plan per gi and cardio ck labs Problems: Subjective 24 Hr Interval Summary Respiratory: no complaints Cardiovascular: no complaints Exam/Review of Systems Vital Signs Vitals Vital Signs Date Time Temp Pulse Resp B/P Pulse Ox O2 Delivery O2 Flow Rate FiO2 09/17/16 20:07 83 09/17/16 19:47 97.6 20 111/70 98 09/16/16 21:00 Room Air 2.0 Intake and Output 09/16/16 09/16/16 09/17/16 15:00 23:00 07:00 Intake Total 500 ml 1600 ml 500 ml Output Total 900 ml Balance 500 ml 1600 ml -400 ml Exam Neck: supple Respiratory: clear to auscultation Cardiovascular: regular rate and rhythm Gastrointestinal: soft Results Result Diagram: 09/16/16 0727 09/17/16 0659 Results 24 hrs Laboratory Tests Test 09/17/16 06:59 09/17/16 08:18 09/17/16 11:49 09/17/16 16:55 Sodium Level 133 L Potassium Level 3.6 Chloride Level 97 Carbon Dioxide Level 26 Anion Gap 14 Blood Urea Nitrogen 10 Creatinine 0.63 Glucose Level 300 H Calcium Level 9.7 Total Bilirubin 0.5 Direct Bilirubin 0.00 Indirect Bilirubin 0.5 Aspartate Amino Transf (AST/SGOT) 29 Alanine Aminotransferase (ALT/SGPT) 23 Alkaline Phosphatase 88 Total Protein 6.6 Albumin 3.3 Globulin 3.30 H Albumin/Globulin Ratio 1.00 Lipase 734 H Bedside Glucose 241 H 257 H 216 Test 09/17/16 20:55 Bedside Glucose 369 H Medications Medications Current Medications Hydralazine HCl (Apresoline) 10 mg Q6H PRN IV ELEVATED BLOOD PRESSURE Last administered on 09/16/16 19:20; Admin Dose 10 MG; Start 09/15/16 at 04:00 Nitroglycerin (Nitroglycerin 2% Oint) 1 inch Q12 TD Last administered on 21:29; Admin Dose 1 INCH; Start 09/15/16 at 04:00 Losartan Potassium (Cozaar) 50 mg DAILY PO Last administered on 09/17/16 08:43 ; Admin Dose 50 MG; Start 09/15/16 at 04:00 Diagnostic Test (Pha) (Accu-Chek) 1 ea 02 XX ; Start 09/16/16 at 02:00 Lorazepam (Ativan) 1 mg Q4 PRN IV CONTROL WITHDRAWAL SYMPTOMS; Start 09/15/16 at 10:00 Hydromorphone HCl (Dilaudid) 1 mg Q4H PRN IV PAIN Last administered on 21:26; Admin Dose 1 MG; Start 09/15/16 at 10:30 Miscellaneous Information 1 ea NOTE XX ; Start 09/15/16 at 16:00 Glucose (Glutose) 15 gm Q15M PRN PO DECREASED GLUCOSE; Start 09/15/16 at 16:00 Glucose (Glutose) 22.5 gm Q15M PRN PO DECREASED GLUCOSE; Start 09/15/16 at 16:00 Dextrose (D50w Syringe) 25 ml Q15M PRN IV DECREASED GLUCOSE; Start 09/15/16 at 16:00 Dextrose (D50w Syringe) 50 ml Q15M PRN IV DECREASED GLUCOSE; Start 09/15/16 at 16:00 Glucagon (Glucagen) 1 mg Q15M PRN IM DECREASED GLUCOSE; Start 09/15/16 at 16:00 Glucose (Glutose) 15 gm Q15M PRN BUCCAL DECREASED GLUCOSE; Start 09/15/16 at 16: 00 Metoprolol Tartrate (Lopressor) 25 mg BID PO Last administered on 09/17/16 21: 28; Admin Dose 25 MG; Start 09/15/16 at 21:00 Aspirin (Halfprin) 81 mg DAILY PO Last administered on 09/17/16 08:43; Admin Dose 81 MG; Start 09/16/16 at 09:00 Clonidine HCl (Catapres-Tts 1 Patch) 1 patch Q7D TRANSDERM Last administered on 09/15/16 21:48; Admin Dose 1 PATCH; Start 09/15/16 at 21:00 Ondansetron HCl 4 mg 4 mg Q6H PRN IV NAUSEA AND/OR VOMITING Last administered on 09/15/16 20:27; Admin Dose 4 MG; Start 09/15/16 at 20:30 Potassium Chloride/Dextrose/ Sodium Chloride (KCl/D5-NS) 1,005 ml @ 50 mls/hr Q20H6M IV Last administered on 09/17/16 16:16; Admin Dose 50 MLS/HR; Start 09/15/16 at 23:30 Nifedipine (Procardia Xl) 60 mg DAILY PO Last administered on 09/17/16 08:42; Admin Dose 60 MG; Start 09/17/16 at 09:00 Polyethylene Glycol (Miralax) 17 gm DAILY PRN PO CONSTIPATION Last administered on 09/17/16 08:41; Admin Dose 17 GM; Start 09/16/16 at 20:00 Insulin Glargine (Lantus) 15 unit DAILY@20 SC Last administered on 09/17/16 21 :32; Admin Dose 15 UNIT; Start 09/17/16 at 20:00 Pantoprazole (Protonix Tab) 40 mg DAILY@06 PO ; Start 09/18/16 at 06:00 LUZ GALLEGOS MD September 17, 2016 23:42
[2016-09-18] VITALS (12 sets, daily range): BP systolic 109–145; BP diastolic 60–111; PULSE 72–88; RESP 18–20
[2016-09-18] MEDS: HYDROmorphONE 1 MG/ML SYG IV PRN ×5 (01:58→20:39)
[2016-09-18] MEDS: ACCU-CHEK XX SCH (02:00)
[2016-09-18] MEDS: PANTOPRAZOLE (EC) 40 MG TAB PO SCH (06:10)
[2016-09-18] MEDS: INSULIN ASPART [NOVOLOG] 3 ML PEN SC SCH ×4 (08:00→20:45)
[2016-09-18] MEDS: NIFEdipine (XL) 60 MG TAB PO SCH (10:50)
[2016-09-18] MEDS: ASPIRIN (EC) 81 MG TAB PO SCH (10:50)
[2016-09-18] MEDS: METOPROLOL 25 MG TAB PO SCH ×2 (10:50→20:39)
[2016-09-18] MEDS: LOSARTAN 50 MG TAB PO SCH (10:51)
[2016-09-18] MEDS: NITROGLYCERIN 2% 1 GM OINT PKT TD SCH ×2 (10:52→20:40)
--- NOTE | 2016-09-18 10:53 | CONS ---
Date/Time of Note Date/Time of Note DATE: 09/18/16 TIME: 10:48 Assessment/Plan Assessment/Plan Additional Assessment/Plan IMPRESSION: 1. Pancreatitis, recurrent, sonogram of the abdomen is negative except for a gallstone, clinically better 2. Diabetes mellitus. 3. Positive troponin. 4. Alcohol abuse. 5. History of coronary artery bypass graft. 6. Tobacco usage. 7. The patient's LFTs all within normal limits. Plan Advance the diet IV fluid Pain management Routine lab Consultation Date/Type/Reason Admit Date/Time September 15, 2016 at 01:56 Type of Consultation: Cardiology Referring Provider: LUZ GALLEGOS MD 24 HR Interval Summary Free Text/Dictation Patient complains of abdominal pain No chest pain or shortness of breath. Patient is ambulating Exam/Review of Systems Vital Signs Vitals Vital Signs Date Time Temp Pulse Resp B/P Pulse Ox O2 Delivery O2 Flow Rate FiO2 09/18/16 08:45 83 09/18/16 07:48 97.9 18 127/82 90 09/16/16 21:00 Room Air 2.0 Intake and Output 09/17/16 09/17/16 09/18/16 15:00 23:00 07:00 Intake Total 1000 ml 500 ml Output Total 400 ml Balance 1000 ml 100 ml Exam Constitutional: alert, oriented, well developed Psych: nl mood/affect, no complaints Head: atraumatic, normocephalic Eyes: EOMI, PERRL, nl conjunctiva, nl lids, nl sclera ENMT: nl external ears & nose, nl lips & teeth, nl nasal mucosa & septum Neck: non-tender, supple Respiratory: clear to auscultation, normal air movement Cardiovascular: nl pulses, regular rate and rhythm Gastrointestinal: nl liver, spleen, non-tender, soft Musculoskeletal: nl extremities to inspection, nl gait and stance Extremities: normal pulses Neurological: FRAUD ANALYST II-XII intact, nl mental status, nl speech, nl strength Skin: nl turgor, No rash or lesions Lymph: nl lymph nodes Results Result Diagram: 09/16/16 0727 09/17/16 0659 Results 24 hrs Laboratory Tests Test 09/17/16 11:49 09/17/16 16:55 09/17/16 20:55 09/18/16 02:26 Bedside Glucose 257 H 216 369 H 177 Test 09/18/16 08:32 Bedside Glucose 81 Medications Medications Current Medications Hydralazine HCl (Apresoline) 10 mg Q6H PRN IV ELEVATED BLOOD PRESSURE Last administered on 09/16/16 19:20; Admin Dose 10 MG; Start 09/15/16 at 04:00 Nitroglycerin (Nitroglycerin 2% Oint) 1 inch Q12 TD Last administered on 21:29; Admin Dose 1 INCH; Start 09/15/16 at 04:00 Losartan Potassium (Cozaar) 50 mg DAILY PO Last administered on 09/17/16 08:43 ; Admin Dose 50 MG; Start 09/15/16 at 04:00 Diagnostic Test (Pha) (Accu-Chek) 1 ea 02 XX ; Start 09/16/16 at 02:00 Lorazepam (Ativan) 1 mg Q4 PRN IV CONTROL WITHDRAWAL SYMPTOMS; Start 09/15/16 at 10:00 Hydromorphone HCl (Dilaudid) 1 mg Q4H PRN IV PAIN Last administered on 08:34; Admin Dose 1 MG; Start 09/15/16 at 10:30 Miscellaneous Information 1 ea NOTE XX ; Start 09/15/16 at 16:00 Glucose (Glutose) 15 gm Q15M PRN PO DECREASED GLUCOSE; Start 09/15/16 at 16:00 Glucose (Glutose) 22.5 gm Q15M PRN PO DECREASED GLUCOSE; Start 09/15/16 at 16:00 Dextrose (D50w Syringe) 25 ml Q15M PRN IV DECREASED GLUCOSE; Start 09/15/16 at 16:00 Dextrose (D50w Syringe) 50 ml Q15M PRN IV DECREASED GLUCOSE; Start 09/15/16 at 16:00 Glucagon (Glucagen) 1 mg Q15M PRN IM DECREASED GLUCOSE; Start 09/15/16 at 16:00 Glucose (Glutose) 15 gm Q15M PRN BUCCAL DECREASED GLUCOSE; Start 09/15/16 at 16: 00 Metoprolol Tartrate (Lopressor) 25 mg BID PO Last administered on 09/17/16 21: 28; Admin Dose 25 MG; Start 09/15/16 at 21:00 Aspirin (Halfprin) 81 mg DAILY PO Last administered on 09/17/16 08:43; Admin Dose 81 MG; Start 09/16/16 at 09:00 Clonidine HCl (Catapres-Tts 1 Patch) 1 patch Q7D TRANSDERM Last administered on 09/15/16 21:48; Admin Dose 1 PATCH; Start 09/15/16 at 21:00 Ondansetron HCl 4 mg 4 mg Q6H PRN IV NAUSEA AND/OR VOMITING Last administered on 09/15/16 20:27; Admin Dose 4 MG; Start 09/15/16 at 20:30 Potassium Chloride/Dextrose/ Sodium Chloride (KCl/D5-NS) 1,005 ml @ 50 mls/hr Q20H6M IV Last administered on 09/17/16 16:16; Admin Dose 50 MLS/HR; Start 09/15/16 at 23:30 Nifedipine (Procardia Xl) 60 mg DAILY PO Last administered on 09/17/16 08:42; Admin Dose 60 MG; Start 09/17/16 at 09:00 Polyethylene Glycol (Miralax) 17 gm DAILY PRN PO CONSTIPATION Last administered on 09/17/16 08:41; Admin Dose 17 GM; Start 09/16/16 at 20:00 Insulin Glargine (Lantus) 15 unit DAILY@20 SC Last administered on 09/17/16 21 :32; Admin Dose 15 UNIT; Start 09/17/16 at 20:00 Pantoprazole (Protonix Tab) 40 mg DAILY@06 PO Last administered on 09/18/16 06 :10; Admin Dose 40 MG; Start 09/18/16 at 06:00 TANNA CASAS MD September 18, 2016 10:53
[2016-09-18] MEDS: POTASSIUM CHLORIDE 10 MEQ in DEXTROSE 5%-0.9% NACL 1,000 ML IV SCH (11:33)
--- NOTE | 2016-09-18 16:30 | PN ---
Date/Time of Note Date/Time of Note DATE: 09/18/16 TIME: 16:29 Assessment/Plan VTE Prophylaxis VTE Prophylaxis Intervention: other Lines/Catheters IV C[facility]ter Type (from [facility] Peripheral IV Urinary Cath still in place: No Assessment/Plan Chief Complaint/Hosp Course IMPRESSION: 1. The patient has uncontrolled diabetes mellitus. 2. NSTEMI 3. Alcohol abuse. 4. Positive troponin. 5 pancreatitis 6 htn 7 DM plan per gi and cardio ck labs Problems: Subjective 24 Hr Interval Summary Cardiovascular: no complaints Gastrointestinal: no complaints Exam/Review of Systems Vital Signs Vitals Vital Signs Date Time Temp Pulse Resp B/P Pulse Ox O2 Delivery O2 Flow Rate FiO2 09/18/16 16:14 98.0 78 18 140/60 99 09/16/16 21:00 Room Air 2.0 Intake and Output 09/17/16 09/17/16 09/18/16 15:00 23:00 07:00 Intake Total 1000 ml 500 ml Output Total 400 ml Balance 1000 ml 100 ml Exam Neck: supple Respiratory: clear to auscultation Cardiovascular: regular rate and rhythm Gastrointestinal: soft Musculoskeletal: nl extremities to inspection Extremities: normal pulses Results Result Diagram: 09/16/16 0727 09/17/16 0659 Results 24 hrs Laboratory Tests Test 09/17/16 16:55 09/17/16 20:55 09/18/16 02:26 09/18/16 08:32 Bedside Glucose 216 369 H 177 81 Test 09/18/16 12:56 Bedside Glucose 152 Medications Medications Current Medications Hydralazine HCl (Apresoline) 10 mg Q6H PRN IV ELEVATED BLOOD PRESSURE Last administered on 09/16/16 19:20; Admin Dose 10 MG; Start 09/15/16 at 04:00 Nitroglycerin (Nitroglycerin 2% Oint) 1 inch Q12 TD Last administered on 10:52; Admin Dose 1 INCH; Start 09/15/16 at 04:00 Losartan Potassium (Cozaar) 50 mg DAILY PO Last administered on 09/18/16 10:51 ; Admin Dose 50 MG; Start 09/15/16 at 04:00 Diagnostic Test (Pha) (Accu-Chek) 1 ea 02 XX ; Start 09/16/16 at 02:00 Lorazepam (Ativan) 1 mg Q4 PRN IV CONTROL WITHDRAWAL SYMPTOMS; Start 09/15/16 at 10:00 Hydromorphone HCl (Dilaudid) 1 mg Q4H PRN IV PAIN Last administered on 11:33; Admin Dose 1 MG; Start 09/15/16 at 10:30 Miscellaneous Information 1 ea NOTE XX ; Start 09/15/16 at 16:00 Glucose (Glutose) 15 gm Q15M PRN PO DECREASED GLUCOSE; Start 09/15/16 at 16:00 Glucose (Glutose) 22.5 gm Q15M PRN PO DECREASED GLUCOSE; Start 09/15/16 at 16:00 Dextrose (D50w Syringe) 25 ml Q15M PRN IV DECREASED GLUCOSE; Start 09/15/16 at 16:00 Dextrose (D50w Syringe) 50 ml Q15M PRN IV DECREASED GLUCOSE; Start 09/15/16 at 16:00 Glucagon (Glucagen) 1 mg Q15M PRN IM DECREASED GLUCOSE; Start 09/15/16 at 16:00 Glucose (Glutose) 15 gm Q15M PRN BUCCAL DECREASED GLUCOSE; Start 09/15/16 at 16: 00 Metoprolol Tartrate (Lopressor) 25 mg BID PO Last administered on 09/18/16 10: 50; Admin Dose 25 MG; Start 09/15/16 at 21:00 Aspirin (Halfprin) 81 mg DAILY PO Last administered on 09/18/16 10:50; Admin Dose 81 MG; Start 09/16/16 at 09:00 Clonidine HCl (Catapres-Tts 1 Patch) 1 patch Q7D TRANSDERM Last administered on 09/15/16 21:48; Admin Dose 1 PATCH; Start 09/15/16 at 21:00 Ondansetron HCl 4 mg 4 mg Q6H PRN IV NAUSEA AND/OR VOMITING Last administered on 09/15/16 20:27; Admin Dose 4 MG; Start 09/15/16 at 20:30 Potassium Chloride/Dextrose/ Sodium Chloride (KCl/D5-NS) 1,005 ml @ 50 mls/hr Q20H6M IV Last administered on 09/18/16 11:33; Admin Dose 50 MLS/HR; Start 09/15/16 at 23:30 Nifedipine (Procardia Xl) 60 mg DAILY PO Last administered on 09/18/16 10:50; Admin Dose 60 MG; Start 09/17/16 at 09:00 Polyethylene Glycol (Miralax) 17 gm DAILY PRN PO CONSTIPATION Last administered on 09/17/16 08:41; Admin Dose 17 GM; Start 09/16/16 at 20:00 Insulin Glargine (Lantus) 15 unit DAILY@20 SC Last administered on 09/17/16 21 :32; Admin Dose 15 UNIT; Start 09/17/16 at 20:00 Pantoprazole (Protonix Tab) 40 mg DAILY@06 PO Last administered on 09/18/16 06 :10; Admin Dose 40 MG; Start 09/18/16 at 06:00 LUZ GALLEGOS MD September 18, 2016 16:30
--- NOTE | 2016-09-18 19:11 | CONS ---
Date/Time of Note Date/Time of Note DATE: 09/18/16 TIME: 19:09 Assessment/Plan Assessment/Plan Chief Complaint/Hosp Course IMPRESSION: 1. Positive troponin concerning for non-ST elevation myocardial infarction, assess significance.-downtrended cardiac enzymes. EF 50% by echo this admit 2. Chest pain, assess for true non-ST myocardial infarction versus possible type 2 infarction in the setting of pancreatitis. C/O ongoing burning chest pain -cardiac enzymes mildly downtrended 3. Hypertension-reasonable 4. Pancreatitis. 5. Diabetes mellitus with uncontrolled blood sugars. 6. Anemia. 7. History of substance abuse. 8. Ongoing tobacco usage. 9. Ethyl alcohol abuse. Recc: _tele -serial ecg's -Continue asa -Continue BB/clonidine TTS/procardia -Continue NTP -Contineu PPI -Lexiscan in AM to assess significance of positive troponin Problems: Consultation Date/Type/Reason Admit Date/Time September 15, 2016 at 01:56 Initial Consult Date 09/15/2016 Type of Consultation: Cardiology Reason for Consultation positive troponin Referring Provider: LUZ GALLEGOS MD Exam/Review of Systems Vital Signs Vitals Vital Signs Date Time Temp Pulse Resp B/P Pulse Ox O2 Delivery O2 Flow Rate FiO2 09/18/16 16:14 98.0 78 18 140/60 99 09/16/16 21:00 Room Air 2.0 Intake and Output 09/17/16 09/17/16 09/18/16 14:59 22:59 06:59 Intake Total 1000 ml 500 ml Output Total 400 ml Balance 1000 ml 100 ml Exam Review of Systems: CONSTITUTIONAL: No fevers, chills. PULMONARY: No sob CARDIOVASCULAR: No chest pain/palpitations GASTROINTESTINAL:Moderate abd pain GENITOURINARY: No hematuria/dysuria. MUSCULOSKELETAL: No myagias/arthalgias. PSYCHIATRIC: The patient denies depression. NEUROLOGIC: No weakness Constitutional: alert Psych: no complaints Head: normocephalic ENMT: mucosa pink and moist Neck: jvd (9 cm water), supple Respiratory: diminished breath sounds (at bases/B) Cardiovascular: regular rate and rhythm Gastrointestinal: soft, tender (mild TTP) Musculoskeletal: muscle tone (normal) Extremities: edema (none) Neurological: other (No focal deficits) Results Result Diagram: 09/16/16 0727 09/17/16 0659 Results 24 hrs Laboratory Tests Test 09/17/16 20:55 09/18/16 02:26 09/18/16 08:32 09/18/16 12:56 Bedside Glucose 369 H 177 81 152 Test 09/18/16 17:25 Bedside Glucose 198 Medications Medications Current Medications Hydralazine HCl (Apresoline) 10 mg Q6H PRN IV ELEVATED BLOOD PRESSURE Last administered on 09/16/16 19:20; Admin Dose 10 MG; Start 09/15/16 at 04:00 Nitroglycerin (Nitroglycerin 2% Oint) 1 inch Q12 TD Last administered on 10:52; Admin Dose 1 INCH; Start 09/15/16 at 04:00 Losartan Potassium (Cozaar) 50 mg DAILY PO Last administered on 09/18/16 10:51 ; Admin Dose 50 MG; Start 09/15/16 at 04:00 Diagnostic Test (Pha) (Accu-Chek) 1 ea 02 XX ; Start 09/16/16 at 02:00 Lorazepam (Ativan) 1 mg Q4 PRN IV CONTROL WITHDRAWAL SYMPTOMS; Start 09/15/16 at 10:00 Hydromorphone HCl (Dilaudid) 1 mg Q4H PRN IV PAIN Last administered on 16:31; Admin Dose 1 MG; Start 09/15/16 at 10:30 Miscellaneous Information 1 ea NOTE XX ; Start 09/15/16 at 16:00 Glucose (Glutose) 15 gm Q15M PRN PO DECREASED GLUCOSE; Start 09/15/16 at 16:00 Glucose (Glutose) 22.5 gm Q15M PRN PO DECREASED GLUCOSE; Start 09/15/16 at 16:00 Dextrose (D50w Syringe) 25 ml Q15M PRN IV DECREASED GLUCOSE; Start 09/15/16 at 16:00 Dextrose (D50w Syringe) 50 ml Q15M PRN IV DECREASED GLUCOSE; Start 09/15/16 at 16:00 Glucagon (Glucagen) 1 mg Q15M PRN IM DECREASED GLUCOSE; Start 09/15/16 at 16:00 Glucose (Glutose) 15 gm Q15M PRN BUCCAL DECREASED GLUCOSE; Start 09/15/16 at 16: 00 Metoprolol Tartrate (Lopressor) 25 mg BID PO Last administered on 09/18/16 10: 50; Admin Dose 25 MG; Start 09/15/16 at 21:00 Aspirin (Halfprin) 81 mg DAILY PO Last administered on 09/18/16 10:50; Admin Dose 81 MG; Start 09/16/16 at 09:00 Clonidine HCl (Catapres-Tts 1 Patch) 1 patch Q7D TRANSDERM Last administered on 09/15/16 21:48; Admin Dose 1 PATCH; Start 09/15/16 at 21:00 Ondansetron HCl 4 mg 4 mg Q6H PRN IV NAUSEA AND/OR VOMITING Last administered on 09/15/16 20:27; Admin Dose 4 MG; Start 09/15/16 at 20:30 Potassium Chloride/Dextrose/ Sodium Chloride (KCl/D5-NS) 1,005 ml @ 50 mls/hr Q20H6M IV Last administered on 09/18/16 11:33; Admin Dose 50 MLS/HR; Start 09/15/16 at 23:30 Nifedipine (Procardia Xl) 60 mg DAILY PO Last administered on 09/18/16 10:50; Admin Dose 60 MG; Start 09/17/16 at 09:00 Polyethylene Glycol (Miralax) 17 gm DAILY PRN PO CONSTIPATION Last administered on 09/17/16 08:41; Admin Dose 17 GM; Start 09/16/16 at 20:00 Insulin Glargine (Lantus) 15 unit DAILY@20 SC Last administered on 09/17/16 21 :32; Admin Dose 15 UNIT; Start 09/17/16 at 20:00 Pantoprazole (Protonix Tab) 40 mg DAILY@06 PO Last administered on 09/18/16 06 :10; Admin Dose 40 MG; Start 09/18/16 at 06:00 JHONATAN TURNER September 18, 2016 19:11
[2016-09-18] MEDS: INSULIN GLARGINE [LANtus] 3 ML PEN SC SCH (20:44)
[2016-09-19] VITALS (12 sets, daily range): BP systolic 105–149; BP diastolic 63–100; PULSE 64–93; RESP 16–18
[2016-09-19] MEDS: HYDROmorphONE 1 MG/ML SYG IV PRN ×5 (01:43→20:39)
[2016-09-19] MEDS: ACCU-CHEK XX SCH (02:00)
[2016-09-19] MEDS: PANTOPRAZOLE (EC) 40 MG TAB PO SCH (05:45)
[2016-09-19] MEDS: INSULIN ASPART [NOVOLOG] 3 ML PEN SC SCH ×4 (08:00→20:25)
[2016-09-19] MEDS: POTASSIUM CHLORIDE 10 MEQ in DEXTROSE 5%-0.9% NACL 1,000 ML IV SCH (08:20)
[2016-09-19 08:28] LABS: ADD SCAN DIFF NO
[2016-09-19] MEDS: ASPIRIN (EC) 81 MG TAB PO SCH (08:33)
[2016-09-19 08:43] LABS: BASOPHILS % 0.3 % (0.0-2.0); EOSINOPHILS # 0.1 10^3/ul (0.0-0.5); EOSINOPHILS % 2.5 % (0.0-7.0); HEMATOCRIT 35.2 % (42.0-52.0); LYMPHOCYTES # 1.3 10^3/ul (0.8-2.9); LYMPHOCYTES % 35.9 % (15.0-51.0); MEAN CORPUSCULAR HEMOGLOBIN 33.3 pg (29.0-33.0); MEAN CORPUSCULAR HGB CONC 34.1 g/dl (32.0-37.0); MEAN CORPUSCULAR VOLUME 97.8 fl (82.0-101.0); MEAN PLATELET VOLUME 9.9 fl (7.4-10.4); MONOCYTE # 0.4 10^3/ul (0.3-0.9); MONOCYTES % 11.6 % (0.0-11.0); NEUTROPHIL # 1.8 10^3/ul (1.6-7.5); NEUTROPHILS % 49.4 % (39.0-77.0); PLATELET COUNT 285 10^3/UL (140-415); RED CELL DISTRIBUTION WIDTH 12.9 % (11.5-14.5); WHITE BLOOD COUNT 3.6 10^3/ul (4.8-10.8)
[2016-09-19 09:53] LABS: INR 0.85; PROTIME 11.6 Sec (12.2-14.2); PT RATIO 0.9
[2016-09-19 09:56] LABS: ALBUMIN 3.4 g/dl (3.3-4.9); ALBUMIN/GLOBULIN RATIO 1.06; BILIRUBIN,INDIRECT 0.3 mg/dl (0-1.1); BILIRUBIN,TOTAL 0.3 mg/dl (0.2-1.3); CALCIUM 10.1 mg/dl (8.4-10.2); CREATININE 0.7 mg/dl (0.61-1.24); POTASSIUM 3.9 mmol/L (3.5-5.1); TOTAL PROTEIN 6.6 g/dl (6.1-8.1)
[2016-09-19] MEDS: METOPROLOL 25 MG TAB PO SCH ×2 (10:07→20:21)
[2016-09-19] MEDS: NIFEdipine (XL) 60 MG TAB PO SCH (10:07)
[2016-09-19] MEDS: LOSARTAN 50 MG TAB PO SCH (10:07)
[2016-09-19] MEDS: NITROGLYCERIN 2% 1 GM OINT PKT TD SCH ×2 (10:08→20:21)
[2016-09-19] MEDS ORDERED: REGADENOSON 0.4 MG/5 ML SYG ONE (10:51)
--- NOTE | 2016-09-19 11:53 | CONS ---
Date/Time of Note Date/Time of Note DATE: 09/19/16 TIME: 11:48 Assessment/Plan Assessment/Plan Chief Complaint/Hosp Course IMPRESSION: 1. Positive troponin concerning for non-ST elevation myocardial infarction, assess significance.-downtrended cardiac enzymes. EF 50% by echo this admit 2. Chest pain, assess for true non-ST myocardial infarction versus possible type 2 infarction in the setting of pancreatitis. C/O ongoing burning chest pain -cardiac enzymes mildly downtrended 3. Hypertension-reasonable 4. Pancreatitis. 5. Diabetes mellitus with uncontrolled blood sugars. 6. Anemia. 7. History of substance abuse. 8. Ongoing tobacco usage. 9. ETOH abuse. Recc: _tele -serial ecg's -Continue asa -Continue BB/clonidine TTS/procardia /losartan -Consider d/c NTP -Continue PPI -Trend lipase -Lexiscan stess test today to assess significance of intial positive troponin Problems: Consultation Date/Type/Reason Admit Date/Time September 15, 2016 at 01:56 Initial Consult Date 09/15/2016 Type of Consultation: Cardiology Reason for Consultation positive troponin Referring Provider: LUZ GALLEGOS MD Exam/Review of Systems Vital Signs Vitals Vital Signs Date Time Temp Pulse Resp B/P Pulse Ox O2 Delivery O2 Flow Rate FiO2 09/19/16 09:15 93 09/19/16 07:45 98.0 18 105/63 98 09/16/16 21:00 Room Air 2.0 Intake and Output 09/18/16 09/18/16 09/19/16 15:00 23:00 07:00 Intake Total 1300 ml 300 ml Balance 1300 ml 300 ml Exam Review of Systems: CONSTITUTIONAL: No fevers, chills. PULMONARY: No sob CARDIOVASCULAR: intermittent buring chest pain GASTROINTESTINAL: No nausea/vomiting. GENITOURINARY: No hematuria/dysuria. MUSCULOSKELETAL: No myagias/arthalgias. PSYCHIATRIC: The patient denies depression. NEUROLOGIC: No weakness Constitutional: alert, oriented Psych: no complaints Head: normocephalic ENMT: mucosa pink and moist Neck: jvd (8 cm water), supple Respiratory: clear to auscultation Cardiovascular: regular rate and rhythm Gastrointestinal: other (mild TTP epsigastric), soft Musculoskeletal: muscle tone (normal) Extremities: edema (none) Neurological: other (No focal deficits) Results Result Diagram: 09/19/16 0725 09/19/16 0725 Results 24 hrs Laboratory Tests Test 09/18/16 12:56 09/18/16 17:25 09/18/16 20:34 09/19/16 02:35 Bedside Glucose 152 198 278 H 159 Test 09/19/16 07:15 09/19/16 07:25 09/19/16 08:16 09/19/16 08:51 Prothrombin Time 11.6 L Prothrombin Time Ratio 0.9 INR International Normalized Ratio 0.85 White Blood Count 3.6 #L Red Blood Count 3.60 L Hemoglobin 12.0 L Hematocrit 35.2 L Mean Corpuscular Volume 97.8 Mean Corpuscular Hemoglobin 33.3 H Mean Corpuscular Hemoglobin Concent 34.1 Red Cell Distribution Width 12.9 Platelet Count 285 Mean Platelet Volume 9.9 Neutrophils % 49.4 Lymphocytes % 35.9 Monocytes % 11.6 H Eosinophils % 2.5 Basophils % 0.3 Nucleated Red Blood Cells % 0.0 Neutrophils # 1.8 Lymphocytes # 1.3 Monocytes # 0.4 Eosinophils # 0.1 Basophils # 0.0 Nucleated Red Blood Cells # 0.0 Sodium Level 137 Potassium Level 3.9 Chloride Level 104 Carbon Dioxide Level 29 Anion Gap 8 Blood Urea Nitrogen 10 Creatinine 0.70 Glucose Level 62 L Calcium Level 10.1 Total Bilirubin 0.3 Direct Bilirubin 0.00 Indirect Bilirubin 0.3 Aspartate Amino Transf (AST/SGOT) 37 Alanine Aminotransferase (ALT/SGPT) 30 Alkaline Phosphatase 70 Total Protein 6.6 Albumin 3.4 Globulin 3.20 Albumin/Globulin Ratio 1.06 Amylase Level 258 H Lipase 82 Bedside Glucose 57 L 116 Test 09/19/16 09:10 09/19/16 09:40 Lab Scanned Report REFERENCE LAB Bedside Glucose 102 Medications Medications Current Medications Hydralazine HCl (Apresoline) 10 mg Q6H PRN IV ELEVATED BLOOD PRESSURE Last administered on 09/16/16 19:20; Admin Dose 10 MG; Start 09/15/16 at 04:00 Nitroglycerin (Nitroglycerin 2% Oint) 1 inch Q12 TD Last administered on 10:08; Admin Dose 1 INCH; Start 09/15/16 at 04:00 Losartan Potassium (Cozaar) 50 mg DAILY PO Last administered on 09/19/16 10:07 ; Admin Dose 50 MG; Start 09/15/16 at 04:00 Diagnostic Test (Pha) (Accu-Chek) 1 ea 02 XX ; Start 09/16/16 at 02:00 Lorazepam (Ativan) 1 mg Q4 PRN IV CONTROL WITHDRAWAL SYMPTOMS; Start 09/15/16 at 10:00 Hydromorphone HCl (Dilaudid) 1 mg Q4H PRN IV PAIN Last administered on 06:40; Admin Dose 1 MG; Start 09/15/16 at 10:30 Miscellaneous Information 1 ea NOTE XX ; Start 09/15/16 at 16:00 Glucose (Glutose) 15 gm Q15M PRN PO DECREASED GLUCOSE; Start 09/15/16 at 16:00 Glucose (Glutose) 22.5 gm Q15M PRN PO DECREASED GLUCOSE; Start 09/15/16 at 16:00 Dextrose (D50w Syringe) 25 ml Q15M PRN IV DECREASED GLUCOSE Last administered on 09/19/16 08:29; Admin Dose 25 ML; Start 09/15/16 at 16:00 Dextrose (D50w Syringe) 50 ml Q15M PRN IV DECREASED GLUCOSE; Start 09/15/16 at 16:00 Glucagon (Glucagen) 1 mg Q15M PRN IM DECREASED GLUCOSE; Start 09/15/16 at 16:00 Glucose (Glutose) 15 gm Q15M PRN BUCCAL DECREASED GLUCOSE; Start 09/15/16 at 16: 00 Metoprolol Tartrate (Lopressor) 25 mg BID PO Last administered on 09/19/16 10: 07; Admin Dose 25 MG; Start 09/15/16 at 21:00 Aspirin (Halfprin) 81 mg DAILY PO Last administered on 09/19/16 08:33; Admin Dose 81 MG; Start 09/16/16 at 09:00 Clonidine HCl (Catapres-Tts 1 Patch) 1 patch Q7D TRANSDERM Last administered on 09/15/16 21:48; Admin Dose 1 PATCH; Start 09/15/16 at 21:00 Ondansetron HCl 4 mg 4 mg Q6H PRN IV NAUSEA AND/OR VOMITING Last administered on 09/15/16 20:27; Admin Dose 4 MG; Start 09/15/16 at 20:30 Potassium Chloride/Dextrose/ Sodium Chloride (KCl/D5-NS) 1,005 ml @ 50 mls/hr Q20H6M IV Last administered on 09/19/16 08:20; Admin Dose 50 MLS/HR; Start 09/15/16 at 23:30 Nifedipine (Procardia Xl) 60 mg DAILY PO Last administered on 09/19/16 10:07; Admin Dose 60 MG; Start 09/17/16 at 09:00 Polyethylene Glycol (Miralax) 17 gm DAILY PRN PO CONSTIPATION Last administered on 09/17/16 08:41; Admin Dose 17 GM; Start 09/16/16 at 20:00 Insulin Glargine (Lantus) 15 unit DAILY@20 SC Last administered on 09/18/16 20 :44; Admin Dose 15 UNIT; Start 09/17/16 at 20:00 Pantoprazole (Protonix Tab) 40 mg DAILY@06 PO Last administered on 09/19/16 05 :45; Admin Dose 40 MG; Start 09/18/16 at 06:00 JHONATAN TURNER September 19, 2016 11:53
--- NOTE | 2016-09-19 11:58 | CONS ---
Date/Time of Note Date/Time of Note DATE: 09/19/16 TIME: 11:57 Assessment/Plan Assessment/Plan Additional Assessment/Plan Additional Assessment/Plan IMPRESSION: 1. Pancreatitis, recurrent, sonogram of the abdomen is negative except for a gallstone, clinically better amylase lipase almost back to normal. Patient pancreatitis is secondary to alcohol 2. Diabetes mellitus. 3. Positive troponin. 4. Alcohol abuse. 5. History of coronary artery bypass graft. 6. Tobacco usage. 7. The patient's LFTs all within normal limits. Plan Advance the diet IV fluid Pain management Routine lab [place] scan today Consultation Date/Type/Reason Admit Date/Time September 15, 2016 at 01:56 Type of Consultation: Cardiology Referring Provider: LUZ GALLEGOS MD 24 HR Interval Summary Constitutional: improved Exam/Review of Systems Vital Signs Vitals Vital Signs Date Time Temp Pulse Resp B/P Pulse Ox O2 Delivery O2 Flow Rate FiO2 09/19/16 09:15 93 09/19/16 07:45 98.0 18 105/63 98 09/16/16 21:00 Room Air 2.0 Intake and Output 09/18/16 09/18/16 09/19/16 15:00 23:00 07:00 Intake Total 1300 ml 300 ml Balance 1300 ml 300 ml Exam Constitutional: alert, oriented, well developed Psych: nl mood/affect, no complaints Head: atraumatic, normocephalic Eyes: EOMI, PERRL, nl conjunctiva, nl lids, nl sclera ENMT: nl external ears & nose, nl lips & teeth, nl nasal mucosa & septum Neck: non-tender, supple Respiratory: clear to auscultation, normal air movement Cardiovascular: nl pulses, regular rate and rhythm Gastrointestinal: nl liver, spleen, non-tender, soft Musculoskeletal: nl extremities to inspection, nl gait and stance Extremities: normal pulses Neurological: IMAGING MANAGER II-XII intact, nl mental status, nl speech, nl strength Skin: nl turgor, No rash or lesions Lymph: nl lymph nodes Results Result Diagram: 09/19/1625 09/19/1625 Results 24 hrs Laboratory Tests Test 09/18/16 12:56 09/18/16 17:25 09/18/16 20:34 09/19/16 02:35 Bedside Glucose 152 198 278 H 159 Test 09/19/16 07:15 09/19/16 07:25 09/19/16 08:16 09/19/16 08:51 Prothrombin Time 11.6 L Prothrombin Time Ratio 0.9 INR International Normalized Ratio 0.85 White Blood Count 3.6 #L Red Blood Count 3.60 L Hemoglobin 12.0 L Hematocrit 35.2 L Mean Corpuscular Volume 97.8 Mean Corpuscular Hemoglobin 33.3 H Mean Corpuscular Hemoglobin Concent 34.1 Red Cell Distribution Width 12.9 Platelet Count 285 Mean Platelet Volume 9.9 Neutrophils % 49.4 Lymphocytes % 35.9 Monocytes % 11.6 H Eosinophils % 2.5 Basophils % 0.3 Nucleated Red Blood Cells % 0.0 Neutrophils # 1.8 Lymphocytes # 1.3 Monocytes # 0.4 Eosinophils # 0.1 Basophils # 0.0 Nucleated Red Blood Cells # 0.0 Sodium Level 137 Potassium Level 3.9 Chloride Level 104 Carbon Dioxide Level 29 Anion Gap 8 Blood Urea Nitrogen 10 Creatinine 0.70 Glucose Level 62 L Calcium Level 10.1 Total Bilirubin 0.3 Direct Bilirubin 0.00 Indirect Bilirubin 0.3 Aspartate Amino Transf (AST/SGOT) 37 Alanine Aminotransferase (ALT/SGPT) 30 Alkaline Phosphatase 70 Total Protein 6.6 Albumin 3.4 Globulin 3.20 Albumin/Globulin Ratio 1.06 Amylase Level 258 H Lipase 82 Bedside Glucose 57 L 116 Test 09/19/16 09:10 09/19/16 09:40 Lab Scanned Report REFERENCE LAB Bedside Glucose 102 Medications Medications Current Medications Hydralazine HCl (Apresoline) 10 mg Q6H PRN IV ELEVATED BLOOD PRESSURE Last administered on 09/16/16 19:20; Admin Dose 10 MG; Start 09/15/16 at 04:00 Nitroglycerin (Nitroglycerin 2% Oint) 1 inch Q12 TD Last administered on 10:08; Admin Dose 1 INCH; Start 09/15/16 at 04:00 Losartan Potassium (Cozaar) 50 mg DAILY PO Last administered on 09/19/16 10:07 ; Admin Dose 50 MG; Start 09/15/16 at 04:00 Diagnostic Test (Pha) (Accu-Chek) 1 ea 02 XX ; Start 09/16/16 at 02:00 Lorazepam (Ativan) 1 mg Q4 PRN IV CONTROL WITHDRAWAL SYMPTOMS; Start 09/15/16 at 10:00 Hydromorphone HCl (Dilaudid) 1 mg Q4H PRN IV PAIN Last administered on 06:40; Admin Dose 1 MG; Start 09/15/16 at 10:30 Miscellaneous Information 1 ea NOTE XX ; Start 09/15/16 at 16:00 Glucose (Glutose) 15 gm Q15M PRN PO DECREASED GLUCOSE; Start 09/15/16 at 16:00 Glucose (Glutose) 22.5 gm Q15M PRN PO DECREASED GLUCOSE; Start 09/15/16 at 16:00 Dextrose (D50w Syringe) 25 ml Q15M PRN IV DECREASED GLUCOSE Last administered on 09/19/16 08:29; Admin Dose 25 ML; Start 09/15/16 at 16:00 Dextrose (D50w Syringe) 50 ml Q15M PRN IV DECREASED GLUCOSE; Start 09/15/16 at 16:00 Glucagon (Glucagen) 1 mg Q15M PRN IM DECREASED GLUCOSE; Start 09/15/16 at 16:00 Glucose (Glutose) 15 gm Q15M PRN BUCCAL DECREASED GLUCOSE; Start 09/15/16 at 16: 00 Metoprolol Tartrate (Lopressor) 25 mg BID PO Last administered on 09/19/16 10: 07; Admin Dose 25 MG; Start 09/15/16 at 21:00 Aspirin (Halfprin) 81 mg DAILY PO Last administered on 09/19/16 08:33; Admin Dose 81 MG; Start 09/16/16 at 09:00 Clonidine HCl (Catapres-Tts 1 Patch) 1 patch Q7D TRANSDERM Last administered on 09/15/16 21:48; Admin Dose 1 PATCH; Start 09/15/16 at 21:00 Ondansetron HCl 4 mg 4 mg Q6H PRN IV NAUSEA AND/OR VOMITING Last administered on 09/15/16 20:27; Admin Dose 4 MG; Start 09/15/16 at 20:30 Potassium Chloride/Dextrose/ Sodium Chloride (KCl/D5-NS) 1,005 ml @ 50 mls/hr Q20H6M IV Last administered on 09/19/16 08:20; Admin Dose 50 MLS/HR; Start 09/15/16 at 23:30 Nifedipine (Procardia Xl) 60 mg DAILY PO Last administered on 09/19/16 10:07; Admin Dose 60 MG; Start 09/17/16 at 09:00 Polyethylene Glycol (Miralax) 17 gm DAILY PRN PO CONSTIPATION Last administered on 09/17/16 08:41; Admin Dose 17 GM; Start 09/16/16 at 20:00 Insulin Glargine (Lantus) 15 unit DAILY@20 SC Last administered on 09/18/16 20 :44; Admin Dose 15 UNIT; Start 09/17/16 at 20:00 Pantoprazole (Protonix Tab) 40 mg DAILY@06 PO Last administered on 09/19/16 05 :45; Admin Dose 40 MG; Start 09/18/16 at 06:00 TANNA CASAS MD September 19, 2016 11:58
--- NOTE | 2016-09-19 12:19 | CARRPT ---
DATE OF PROCEDURE: 09/19/2016 PROCEDURE: Lexiscan Cardiolite stress test electrocardiogram portion. REASON FOR STRESS TESTING: Positive troponin, assess significance. REFERRING PHYSICIAN: Dr. Arvind Raines. BASELINE VITAL SIGNS AND ELECTROCARDIOGRAM: Pulse 63, blood pressure 145/90. Electrocardiogram rev eals sinus rhythm, rate of 62, normal axis, normal intervals with inferolateral and anterior T-wave inversion. A single PVC. DESCRIPTION OF PROCEDURE: The patient underwent standard Lexiscan infusion protocol over 10 seconds followed by radiolabeled tracer. The patient's test was stopped due to completion of protocol. Ma fabienne achieved blood pressure during the test 149/97. Maximal achieved heart rate during the test 7 5. ELECTROCARDIOGRAM FINDINGS: The patient did not develop any new Lexiscan-induced ST or T-wave smith es from baseline abnormalities. Occasional PVCs throughout stress testing. SYMPTOMS: The patient had complaints of abdominal pain, slight chest pain during stress test that r esolved in recovery. IMPRESSION: 1. No Lexiscan-induced ST or T-wave changes from baseline abnormalities diagnostic of cardiac ische margo. 2. Complaints of chest pain during stress test that resolved in recovery. 3. Positive PVCs throughout stress testing. 4. Report of nuclear images to follow in separate dictation. Dictated By: JHONATAN SOLIS/LU Conf#: [id number] DID#: [id number]
--- NOTE | 2016-09-19 12:56 | RADRPT ---
PROCEDURE: Lexiscan myocardial perfusion study CLINICAL INDICATION: 45 -year-old patient complaining of chest pain. TECHNIQUE: Lexiscan 0.4 mg intravenously separate acquisition gated myocardial perfusion SPECT usi ng Tc 99m Myoview 28.8 mCi intravenously at stress and Tc-99m Myoview, 9.3 mCi intravenously at rest was performed using the rest/stress sequence. Poststress Myoview SPECT images were obtained in the supine position. COMPARISON: No prior studies. FINDINGS: Perfusion images reveal a moderate size moderate in degree predominantly nonreversible perfusion def ect in the lateral wall. Lexiscan post stress gated SPECT images demonstrate mild hypokinesis of the lateral wall IMPRESSION: 1. The type and distribution of the scintigraphic abnormalities are most consistent with a moderate -sized reversible perfusion defect in the lateral wall. 2. Mild hypokinesis of the lateral wall. 3. The left ventricle ejection fraction at stress is 41%. A call report was made to Dr. Green and 12:54 p.m. on September 19, 2016. RPTAT: HH .Isabel Do MD, Date Time Electronically viewed and signed by .Isabel Do MD, on 09/19/2016 12:55 .L/
--- NOTE | 2016-09-19 16:31 | PN ---
Date/Time of Note Date/Time of Note DATE: 09/19/16 TIME: 16:29 Assessment/Plan VTE Prophylaxis VTE Prophylaxis Intervention: ambulation Lines/Catheters IV [facility]from [facility] Peripheral IV Central line still needed: No Urinary Cath still in place: No Assessment/Plan Chief Complaint/Hosp Course 1. The patient has uncontrolled diabetes mellitus. 2. NSTEMI 3. Alcohol abuse. 4. Positive troponin. 5 pancreatitis 6 htn 7 DM Problems: Assessment/Plan 1. Per GI Subjective 24 Hr Interval Summary Constitutional: improved, no complaints Eyes: no complaints, pain ENT: no complaints Respiratory: no complaints Cardiovascular: no complaints Gastrointestinal: no complaints Skin: no complaints Neurologic: no complaints Exam/Review of Systems Vital Signs Vitals Vital Signs Date Time Temp Pulse Resp B/P Pulse Ox O2 Delivery O2 Flow Rate FiO2 09/19/16 16:27 76 09/19/16 15:56 98.0 18 137/73 98 09/16/16 21:00 Room Air 2.0 Intake and Output 09/18/16 09/18/16 09/19/16 15:00 23:00 07:00 Intake Total 1300 ml 300 ml Balance 1300 ml 300 ml Exam Constitutional: alert, oriented Psych: no complaints Head: normocephalic Eyes: nl conjunctiva ENMT: nl external ears & nose Neck: supple Results Result Diagram: 09/19/1625 09/19/16 0725 Results 24 hrs Laboratory Tests Test 09/18/16 17:25 09/18/16 20:34 09/19/16 02:35 09/19/16 07:15 Bedside Glucose 198 278 H 159 Prothrombin Time 11.6 L Prothrombin Time Ratio 0.9 INR International Normalized Ratio 0.85 Test 09/19/16 07:25 09/19/16 08:16 09/19/16 08:51 09/19/16 09:10 White Blood Count 3.6 #L Red Blood Count 3.60 L Hemoglobin 12.0 L Hematocrit 35.2 L Mean Corpuscular Volume 97.8 Mean Corpuscular Hemoglobin 33.3 H Mean Corpuscular Hemoglobin Concent 34.1 Red Cell Distribution Width 12.9 Platelet Count 285 Mean Platelet Volume 9.9 Neutrophils % 49.4 Lymphocytes % 35.9 Monocytes % 11.6 H Eosinophils % 2.5 Basophils % 0.3 Nucleated Red Blood Cells % 0.0 Neutrophils # 1.8 Lymphocytes # 1.3 Monocytes # 0.4 Eosinophils # 0.1 Basophils # 0.0 Nucleated Red Blood Cells # 0.0 Sodium Level 137 Potassium Level 3.9 Chloride Level 104 Carbon Dioxide Level 29 Anion Gap 8 Blood Urea Nitrogen 10 Creatinine 0.70 Glucose Level 62 L Calcium Level 10.1 Total Bilirubin 0.3 Direct Bilirubin 0.00 Indirect Bilirubin 0.3 Aspartate Amino Transf (AST/SGOT) 37 Alanine Aminotransferase (ALT/SGPT) 30 Alkaline Phosphatase 70 Total Protein 6.6 Albumin 3.4 Globulin 3.20 Albumin/Globulin Ratio 1.06 Amylase Level 258 H Lipase 82 Bedside Glucose 57 L 116 Lab Scanned Report REFERENCE LAB Test 09/19/16 09:40 09/19/16 12:42 Bedside Glucose 102 72 Medications Medications Current Medications Hydralazine HCl (Apresoline) 10 mg Q6H PRN IV ELEVATED BLOOD PRESSURE Last administered on 09/16/16 19:20; Admin Dose 10 MG; Start 09/15/16 at 04:00 Nitroglycerin (Nitroglycerin 2% Oint) 1 inch Q12 TD Last administered on 10:08; Admin Dose 1 INCH; Start 09/15/16 at 04:00 Losartan Potassium (Cozaar) 50 mg DAILY PO Last administered on 09/19/16 10:07 ; Admin Dose 50 MG; Start 09/15/16 at 04:00 Diagnostic Test (Pha) (Accu-Chek) 1 ea 02 XX ; Start 09/16/16 at 02:00 Lorazepam (Ativan) 1 mg Q4 PRN IV CONTROL WITHDRAWAL SYMPTOMS; Start 09/15/16 at 10:00 Hydromorphone HCl (Dilaudid) 1 mg Q4H PRN IV PAIN Last administered on 12:51; Admin Dose 1 MG; Start 09/15/16 at 10:30 Miscellaneous Information 1 ea NOTE XX ; Start 09/15/16 at 16:00 Glucose (Glutose) 15 gm Q15M PRN PO DECREASED GLUCOSE; Start 09/15/16 at 16:00 Glucose (Glutose) 22.5 gm Q15M PRN PO DECREASED GLUCOSE; Start 09/15/16 at 16:00 Dextrose (D50w Syringe) 25 ml Q15M PRN IV DECREASED GLUCOSE Last administered on 09/19/16 08:29; Admin Dose 25 ML; Start 09/15/16 at 16:00 Dextrose (D50w Syringe) 50 ml Q15M PRN IV DECREASED GLUCOSE; Start 09/15/16 at 16:00 Glucagon (Glucagen) 1 mg Q15M PRN IM DECREASED GLUCOSE; Start 09/15/16 at 16:00 Glucose (Glutose) 15 gm Q15M PRN BUCCAL DECREASED GLUCOSE; Start 09/15/16 at 16: 00 Metoprolol Tartrate (Lopressor) 25 mg BID PO Last administered on 09/19/16 10: 07; Admin Dose 25 MG; Start 09/15/16 at 21:00 Aspirin (Halfprin) 81 mg DAILY PO Last administered on 09/19/16 08:33; Admin Dose 81 MG; Start 09/16/16 at 09:00 Clonidine HCl (Catapres-Tts 1 Patch) 1 patch Q7D TRANSDERM Last administered on 09/15/16 21:48; Admin Dose 1 PATCH; Start 09/15/16 at 21:00 Ondansetron HCl 4 mg 4 mg Q6H PRN IV NAUSEA AND/OR VOMITING Last administered on 09/15/16 20:27; Admin Dose 4 MG; Start 09/15/16 at 20:30 Potassium Chloride/Dextrose/ Sodium Chloride (KCl/D5-NS) 1,005 ml @ 50 mls/hr Q20H6M IV Last administered on 09/19/16 08:20; Admin Dose 50 MLS/HR; Start 09/15/16 at 23:30 Nifedipine (Procardia Xl) 60 mg DAILY PO Last administered on 09/19/16 10:07; Admin Dose 60 MG; Start 09/17/16 at 09:00 Polyethylene Glycol (Miralax) 17 gm DAILY PRN PO CONSTIPATION Last administered on 09/17/16 08:41; Admin Dose 17 GM; Start 09/16/16 at 20:00 Insulin Glargine (Lantus) 15 unit DAILY@20 SC Last administered on 09/18/16 20 :44; Admin Dose 15 UNIT; Start 09/17/16 at 20:00 Pantoprazole (Protonix Tab) 40 mg DAILY@06 PO Last administered on 09/19/16 05 :45; Admin Dose 40 MG; Start 09/18/16 at 06:00 DIGNA GOVEA September 19, 2016 16:31
[2016-09-19] MEDS ORDERED: INSULIN ASPART [NOVOLOG] 3 ML PEN SC ONE (18:00)
[2016-09-19] MEDS: INSULIN GLARGINE [LANtus] 3 ML PEN SC SCH (20:26)
[2016-09-20] VITALS (11 sets, daily range): BP systolic 118–139; BP diastolic 63–73; PULSE 65–86; RESP 16–19
[2016-09-20] MEDS: HYDROmorphONE 1 MG/ML SYG IV PRN ×6 (00:31→21:57)
[2016-09-20] MEDS: ACCU-CHEK XX SCH (02:39)
[2016-09-20] MEDS: ONDANSETRON 4 MG INJ IV PRN ×2 (04:44→19:27)
[2016-09-20] MEDS: PANTOPRAZOLE (EC) 40 MG TAB PO SCH (04:48)
[2016-09-20] MEDS ORDERED: INSULIN ASPART [NOVOLOG] 3 ML PEN SC SCH (08:00)
[2016-09-20] MEDS: INSULIN ASPART [NOVOLOG] 3 ML PEN SC SCH ×6 (08:00→20:56)
[2016-09-20 08:04] LABS: ADD SCAN DIFF NO
[2016-09-20 08:14] LABS: BASOPHILS % 0.5 % (0.0-2.0); EOSINOPHILS # 0.2 10^3/ul (0.0-0.5); EOSINOPHILS % 3.5 % (0.0-7.0); HEMATOCRIT 33.2 % (42.0-52.0); HEMOGLOBIN 11.2 g/dl (14.0-18.0); LYMPHOCYTES # 1.3 10^3/ul (0.8-2.9); LYMPHOCYTES % 30.5 % (15.0-51.0); MEAN CORPUSCULAR HEMOGLOBIN 33.3 pg (29.0-33.0); MEAN CORPUSCULAR HGB CONC 33.7 g/dl (32.0-37.0); MEAN CORPUSCULAR VOLUME 98.8 fl (82.0-101.0); MEAN PLATELET VOLUME 9.7 fl (7.4-10.4); MONOCYTE # 0.6 10^3/ul (0.3-0.9); MONOCYTES % 14.1 % (0.0-11.0); NEUTROPHIL # 2.2 10^3/ul (1.6-7.5); NEUTROPHILS % 51.2 % (39.0-77.0); PLATELET COUNT 248 10^3/UL (140-415); RED BLOOD COUNT 3.36 10^6/ul (4.70-6.10); RED CELL DISTRIBUTION WIDTH 12.9 % (11.5-14.5); WHITE BLOOD COUNT 4.3 10^3/ul (4.8-10.8)
[2016-09-20] MEDS: METOPROLOL 25 MG TAB PO SCH ×2 (08:40→20:55)
[2016-09-20] MEDS: LOSARTAN 50 MG TAB PO SCH (08:40)
[2016-09-20] MEDS: ASPIRIN (EC) 81 MG TAB PO SCH (08:40)
[2016-09-20] MEDS: NITROGLYCERIN 2% 1 GM OINT PKT TD SCH ×2 (08:41→20:54)
[2016-09-20] MEDS: NIFEdipine (XL) 60 MG TAB PO SCH (08:41)
[2016-09-20 08:42] LABS: CALCIUM 10.1 mg/dl (8.4-10.2); CREATININE 0.73 mg/dl (0.61-1.24); POTASSIUM 4.1 mmol/L (3.5-5.1)
--- NOTE | 2016-09-20 13:44 | CONS ---
Date/Time of Note Date/Time of Note DATE: 09/20/16 TIME: 13:43 Assessment/Plan Assessment/Plan Additional Assessment/Plan IMPRESSION: 1. Pancreatitis, recurrent, sonogram of the abdomen is negative except for a gallstone, clinically better amylase lipase almost back to normal. Patient pancreatitis is secondary to alcohol 2. Diabetes mellitus. 3. Positive troponin. 4. Alcohol abuse. 5. History of coronary artery bypass graft. 6. Tobacco usage. 7. The patient's LFTs all within normal limits. Plan Advance the diet IV fluid Pain management Routine lab [place] scan today, reversible perfusion defect in the lateral wall, cardiology follow-up Consultation Date/Type/Reason Admit Date/Time September 15, 2016 at 01:56 Type of Consultation: Cardiology Referring Provider: LUZ GALLEGOS MD 24 HR Interval Summary Free Text/Dictation Patient still complains of abdominal pain. No nausea no vomiting No chest pain or shortness of breath Exam/Review of Systems Vital Signs Vitals Vital Signs Date Time Temp Pulse Resp B/P Pulse Ox O2 Delivery O2 Flow Rate FiO2 09/20/16 13:11 75 09/20/16 12:15 97.4 18 139/63 100 09/16/16 21:00 Room Air 2.0 Intake and Output 09/19/16 09/19/16 09/20/16 15:00 23:00 07:00 Intake Total 1420 ml 240 ml Balance 1420 ml 240 ml Exam Constitutional: alert, oriented, well developed Psych: nl mood/affect, no complaints Head: atraumatic, normocephalic Eyes: EOMI, PERRL, nl conjunctiva, nl lids, nl sclera ENMT: nl external ears & nose, nl lips & teeth, nl nasal mucosa & septum Neck: non-tender, supple Respiratory: clear to auscultation, normal air movement Cardiovascular: nl pulses, regular rate and rhythm Gastrointestinal: nl liver, spleen, non-tender, soft Musculoskeletal: nl extremities to inspection, nl gait and stance Extremities: normal pulses Neurological: RAIL LOADER II-XII intact, nl mental status, nl speech, nl strength Skin: nl turgor, No rash or lesions Lymph: nl lymph nodes Results Result Diagram: 09/20/16 0646 09/20/16 0646 Results 24 hrs Laboratory Tests Test 09/19/16 17:16 09/19/16 17:29 09/19/16 20:23 09/20/16 01:48 Bedside Glucose 400 H 441 *H 264 H 151 Test 09/20/16 06:46 09/20/16 08:15 09/20/16 08:35 09/20/16 09:08 White Blood Count 4.3 L Red Blood Count 3.36 L Hemoglobin 11.2 L Hematocrit 33.2 L Mean Corpuscular Volume 98.8 Mean Corpuscular Hemoglobin 33.3 H Mean Corpuscular Hemoglobin Concent 33.7 Red Cell Distribution Width 12.9 Platelet Count 248 Mean Platelet Volume 9.7 Neutrophils % 51.2 Lymphocytes % 30.5 Monocytes % 14.1 H Eosinophils % 3.5 Basophils % 0.5 Nucleated Red Blood Cells % 0.0 Neutrophils # 2.2 Lymphocytes # 1.3 Monocytes # 0.6 Eosinophils # 0.2 Basophils # 0.0 Nucleated Red Blood Cells # 0.0 Sodium Level 136 Potassium Level 4.1 Chloride Level 104 Carbon Dioxide Level 29 Anion Gap 7 L Blood Urea Nitrogen 9 Creatinine 0.73 Glucose Level 52 #L Calcium Level 10.1 Bedside Glucose 60 L 72 133 Test 09/20/16 10:28 09/20/16 10:30 09/20/16 10:45 09/20/16 11:13 Bedside Glucose 117 45 *L 73 67 L Test 09/20/16 11:42 09/20/16 12:22 Bedside Glucose 73 123 Medications Medications Current Medications Hydralazine HCl (Apresoline) 10 mg Q6H PRN IV ELEVATED BLOOD PRESSURE Last administered on 09/16/16 19:20; Admin Dose 10 MG; Start 09/15/16 at 04:00 Nitroglycerin (Nitroglycerin 2% Oint) 1 inch Q12 TD Last administered on 08:41; Admin Dose 1 INCH; Start 09/15/16 at 04:00 Losartan Potassium (Cozaar) 50 mg DAILY PO Last administered on 09/20/16 08:40 ; Admin Dose 50 MG; Start 09/15/16 at 04:00 Diagnostic Test (Pha) (Accu-Chek) 1 ea 02 XX Last administered on 09/20/16 02: 39; Admin Dose 1 EA; Start 09/16/16 at 02:00 Lorazepam (Ativan) 1 mg Q4 PRN IV CONTROL WITHDRAWAL SYMPTOMS; Start 09/15/16 at 10:00 Hydromorphone HCl (Dilaudid) 1 mg Q4H PRN IV PAIN Last administered on 13:31; Admin Dose 1 MG; Start 09/15/16 at 10:30 Miscellaneous Information 1 ea NOTE XX ; Start 09/15/16 at 16:00 Glucose (Glutose) 15 gm Q15M PRN PO DECREASED GLUCOSE; Start 09/15/16 at 16:00 Glucose (Glutose) 22.5 gm Q15M PRN PO DECREASED GLUCOSE; Start 09/15/16 at 16:00 Dextrose (D50w Syringe) 25 ml Q15M PRN IV DECREASED GLUCOSE Last administered on 09/19/16 08:29; Admin Dose 25 ML; Start 09/15/16 at 16:00 Dextrose (D50w Syringe) 50 ml Q15M PRN IV DECREASED GLUCOSE; Start 09/15/16 at 16:00 Glucagon (Glucagen) 1 mg Q15M PRN IM DECREASED GLUCOSE; Start 09/15/16 at 16:00 Glucose (Glutose) 15 gm Q15M PRN BUCCAL DECREASED GLUCOSE; Start 09/15/16 at 16: 00 Metoprolol Tartrate (Lopressor) 25 mg BID PO Last administered on 09/20/16 08: 40; Admin Dose 25 MG; Start 09/15/16 at 21:00 Aspirin (Halfprin) 81 mg DAILY PO Last administered on 09/20/16 08:40; Admin Dose 81 MG; Start 09/16/16 at 09:00 Clonidine HCl (Catapres-Tts 1 Patch) 1 patch Q7D TRANSDERM Last administered on 09/15/16 21:48; Admin Dose 1 PATCH; Start 09/15/16 at 21:00 Ondansetron HCl (Zofran Inj) 4 mg Q6H PRN IV NAUSEA AND/OR VOMITING Last administered on 09/20/16 04:44; Admin Dose 4 MG; Start 09/15/16 at 20:30 Nifedipine (Procardia Xl) 60 mg DAILY PO Last administered on 09/20/16 08:41; Admin Dose 60 MG; Start 09/17/16 at 09:00 Polyethylene Glycol (Miralax) 17 gm DAILY PRN PO CONSTIPATION Last administered on 09/17/16 08:41; Admin Dose 17 GM; Start 09/16/16 at 20:00 Insulin Glargine (Lantus) 15 unit DAILY@20 SC Last administered on 09/19/16 20 :26; Admin Dose 15 UNIT; Start 09/17/16 at 20:00 Pantoprazole (Protonix Tab) 40 mg DAILY@06 PO Last administered on 09/20/16 04 :48; Admin Dose 40 MG; Start 09/18/16 at 06:00 TANNA CASAS MD September 20, 2016 13:44
--- NOTE | 2016-09-20 15:12 | CONS ---
Date/Time of Note Date/Time of Note DATE: 09/20/16 TIME: 15:03 Assessment/Plan Assessment/Plan Additional Assessment/Plan Typical chest pain NSTEMI with Positive Stress test Hypertension Diabetes Pancreatitis. Anemia. History of substance abuse. Tobacco Abuse Alcohol Abuse His Stress test is positive for reversible ischemia in lateral wall Started on Imdur Started on Plavix and ASA Continue Metoprolol Discontinue Hydralazine Started on Lipitor Continue Nifedipine and Losartan Cardiac Cath on Thursday Consultation Date/Type/Reason Admit Date/Time September 15, 2016 at 01:56 Constitutional: improved, no complaints Eyes: no complaints, pain ENT: no complaints Respiratory: no complaints Cardiovascular: no complaints Gastrointestinal: no complaints Skin: no complaints Neurologic: no complaints Psychological: nl mood/affect, no complaints Social History Smoking Status: Current every day smoker Exam/Review of Systems Vital Signs Vitals Vital Signs Date Time Temp Pulse Resp B/P Pulse Ox O2 Delivery O2 Flow Rate FiO2 09/20/16 13:11 75 09/20/16 12:15 97.4 18 139/63 100 09/16/16 21:00 Room Air 2.0 Intake and Output 09/19/16 09/19/16 09/20/16 15:00 23:00 07:00 Intake Total 1420 ml 240 ml Balance 1420 ml 240 ml Exam Constitutional: alert, oriented Head: atraumatic, normocephalic Neck: non-tender, supple Respiratory: clear to auscultation Cardiovascular: regular rate and rhythm Gastrointestinal: nl liver, spleen, non-tender, soft Extremities: normal pulses Results Result Diagram: 09/20/16 0646 09/20/16 0646 Results 24 hrs Laboratory Tests Test 09/19/16 17:16 09/19/16 17:29 09/19/16 20:23 09/20/16 01:48 Bedside Glucose 400 H 441 *H 264 H 151 Test 09/20/16 06:46 09/20/16 08:15 09/20/16 08:35 09/20/16 09:08 White Blood Count 4.3 L Red Blood Count 3.36 L Hemoglobin 11.2 L Hematocrit 33.2 L Mean Corpuscular Volume 98.8 Mean Corpuscular Hemoglobin 33.3 H Mean Corpuscular Hemoglobin Concent 33.7 Red Cell Distribution Width 12.9 Platelet Count 248 Mean Platelet Volume 9.7 Neutrophils % 51.2 Lymphocytes % 30.5 Monocytes % 14.1 H Eosinophils % 3.5 Basophils % 0.5 Nucleated Red Blood Cells % 0.0 Neutrophils # 2.2 Lymphocytes # 1.3 Monocytes # 0.6 Eosinophils # 0.2 Basophils # 0.0 Nucleated Red Blood Cells # 0.0 Sodium Level 136 Potassium Level 4.1 Chloride Level 104 Carbon Dioxide Level 29 Anion Gap 7 L Blood Urea Nitrogen 9 Creatinine 0.73 Glucose Level 52 #L Calcium Level 10.1 Bedside Glucose 60 L 72 133 Test 09/20/16 10:28 09/20/16 10:30 09/20/16 10:45 09/20/16 11:13 Bedside Glucose 117 45 *L 73 67 L Test 09/20/16 11:42 09/20/16 12:22 Bedside Glucose 73 123 Medications Medications Current Medications Hydralazine HCl (Apresoline) 10 mg Q6H PRN IV ELEVATED BLOOD PRESSURE Last administered on 09/16/16 19:20; Admin Dose 10 MG; Start 09/15/16 at 04:00 Nitroglycerin (Nitroglycerin 2% Oint) 1 inch Q12 TD Last administered on 08:41; Admin Dose 1 INCH; Start 09/15/16 at 04:00 Losartan Potassium (Cozaar) 50 mg DAILY PO Last administered on 09/20/16 08:40 ; Admin Dose 50 MG; Start 09/15/16 at 04:00 Diagnostic Test (Pha) (Accu-Chek) 1 ea 02 XX Last administered on 09/20/16 02: 39; Admin Dose 1 EA; Start 09/16/16 at 02:00 Lorazepam (Ativan) 1 mg Q4 PRN IV CONTROL WITHDRAWAL SYMPTOMS; Start 09/15/16 at 10:00 Hydromorphone HCl (Dilaudid) 1 mg Q4H PRN IV PAIN Last administered on 13:31; Admin Dose 1 MG; Start 09/15/16 at 10:30 Miscellaneous Information 1 ea NOTE XX ; Start 09/15/16 at 16:00 Glucose (Glutose) 15 gm Q15M PRN PO DECREASED GLUCOSE; Start 09/15/16 at 16:00 Glucose (Glutose) 22.5 gm Q15M PRN PO DECREASED GLUCOSE; Start 09/15/16 at 16:00 Dextrose (D50w Syringe) 25 ml Q15M PRN IV DECREASED GLUCOSE Last administered on 09/19/16 08:29; Admin Dose 25 ML; Start 09/15/16 at 16:00 Dextrose (D50w Syringe) 50 ml Q15M PRN IV DECREASED GLUCOSE; Start 09/15/16 at 16:00 Glucagon (Glucagen) 1 mg Q15M PRN IM DECREASED GLUCOSE; Start 09/15/16 at 16:00 Glucose (Glutose) 15 gm Q15M PRN BUCCAL DECREASED GLUCOSE; Start 09/15/16 at 16: 00 Metoprolol Tartrate (Lopressor) 25 mg BID PO Last administered on 09/20/16 08: 40; Admin Dose 25 MG; Start 09/15/16 at 21:00 Aspirin (Halfprin) 81 mg DAILY PO Last administered on 09/20/16 08:40; Admin Dose 81 MG; Start 09/16/16 at 09:00 Clonidine HCl (Catapres-Tts 1 Patch) 1 patch Q7D TRANSDERM Last administered on 09/15/16 21:48; Admin Dose 1 PATCH; Start 09/15/16 at 21:00 Ondansetron HCl (Zofran Inj) 4 mg Q6H PRN IV NAUSEA AND/OR VOMITING Last administered on 09/20/16 04:44; Admin Dose 4 MG; Start 09/15/16 at 20:30 Nifedipine (Procardia Xl) 60 mg DAILY PO Last administered on 09/20/16 08:41; Admin Dose 60 MG; Start 09/17/16 at 09:00 Polyethylene Glycol (Miralax) 17 gm DAILY PRN PO CONSTIPATION Last administered on 09/17/16 08:41; Admin Dose 17 GM; Start 09/16/16 at 20:00 Insulin Glargine (Lantus) 15 unit DAILY@20 SC Last administered on 09/19/16 20 :26; Admin Dose 15 UNIT; Start 09/17/16 at 20:00 Pantoprazole (Protonix Tab) 40 mg DAILY@06 PO Last administered on 09/20/16 04 :48; Admin Dose 40 MG; Start 09/18/16 at 06:00 ANDREW PEREZ M.D. September 20, 2016 15:12
[2016-09-20] MEDS ORDERED: HYDROmorphONE 1 MG/ML SYG IV STA (15:14)
[2016-09-20] MEDS: ISOSORBIDE MONONITRATE(SR)30 MG TAB PO SCH (16:21)
[2016-09-20] MEDS: CLOPIDOGREL 75 MG TAB PO SCH (16:21)
[2016-09-20] MEDS: INSULIN GLARGINE [LANtus] 3 ML PEN SC SCH (20:00)
[2016-09-20] MEDS: ATORVASTATIN 40 MG TAB PO SCH (20:55)
[2016-09-21] VITALS (12 sets, daily range): BP systolic 94–143; BP diastolic 52–86; PULSE 67–93; RESP 16–18
[2016-09-21] MEDS: ACCU-CHEK XX SCH (02:00)
[2016-09-21] MEDS: HYDROmorphONE 1 MG/ML SYG IV PRN ×6 (02:08→21:57)
[2016-09-21] MEDS: PANTOPRAZOLE (EC) 40 MG TAB PO SCH (06:04)
[2016-09-21 08:02] LABS: CALCIUM 9.8 mg/dl (8.4-10.2); CREATININE 0.96 mg/dl (0.61-1.24); POTASSIUM 4.7 mmol/L (3.5-5.1)
[2016-09-21] MEDS: ISOSORBIDE MONONITRATE(SR)30 MG TAB PO SCH (08:21)
[2016-09-21] MEDS: INSULIN ASPART [NOVOLOG] 3 ML PEN SC SCH ×7 (08:22→21:30)
[2016-09-21] MEDS: METOPROLOL 25 MG TAB PO SCH ×2 (08:23→21:14)
[2016-09-21] MEDS: LOSARTAN 50 MG TAB PO SCH (08:23)
[2016-09-21] MEDS: ASPIRIN (EC) 81 MG TAB PO SCH (08:24)
[2016-09-21] MEDS: NIFEdipine (XL) 60 MG TAB PO SCH (08:24)
[2016-09-21] MEDS: CLOPIDOGREL 75 MG TAB PO SCH (08:24)
[2016-09-21] MEDS: ONDANSETRON 4 MG INJ IV PRN ×2 (08:24→21:15)
[2016-09-21] MEDS: NITROGLYCERIN 2% 1 GM OINT PKT TD SCH ×2 (08:24→21:14)
--- NOTE | 2016-09-21 14:07 | CONS ---
Date/Time of Note Date/Time of Note DATE: 09/21/16 TIME: 14:06 Assessment/Plan Assessment/Plan Additional Assessment/Plan Typical chest pain NSTEMI with Positive Stress test Hypertension Diabetes Pancreatitis. Anemia. History of substance abuse. Tobacco Abuse Alcohol Abuse His Stress test is positive for reversible ischemia in lateral wall Continue Imdur Continue Plavix and ASA Continue Metoprolol Off Hydralazine Continue Lipitor Continue Nifedipine and Losartan Cardiac Cath on Thursday Consultation Date/Type/Reason Admit Date/Time September 15, 2016 at 01:56 Initial Consult Date Type of Consultation: Cardiology Referring Provider: LUZ GALLEGOS MD Exam/Review of Systems Vital Signs Vitals Vital Signs Date Time Temp Pulse Resp B/P Pulse Ox O2 Delivery O2 Flow Rate FiO2 09/21/16 12:10 82 09/21/16 11:58 98.8 18 94/52 99 Intake and Output 09/20/16 09/20/16 09/21/16 15:00 23:00 07:00 Intake Total 1200 ml 500 ml Balance 1200 ml 500 ml Exam Constitutional: alert, oriented Head: atraumatic, normocephalic Neck: non-tender, supple Respiratory: clear to auscultation Cardiovascular: regular rate and rhythm Gastrointestinal: nl liver, spleen, non-tender, soft Extremities: normal pulses Results Result Diagram: 09/20/16 0646 09/21/16 0650 Results 24 hrs Laboratory Tests Test 09/20/16 17:39 09/20/16 17:49 09/20/16 20:52 09/21/16 06:50 Bedside Glucose 225 H 197 88 Sodium Level 131 L Potassium Level 4.7 Chloride Level 100 Carbon Dioxide Level 28 Anion Gap 8 Blood Urea Nitrogen 14 Creatinine 0.96 Glucose Level 407 #*H Calcium Level 9.8 Test 09/21/16 08:07 09/21/16 11:43 09/21/16 12:00 Bedside Glucose 449 *H 64 L 99 Medications Medications Current Medications Hydralazine HCl (Apresoline) 10 mg Q6H PRN IV ELEVATED BLOOD PRESSURE Last administered on 09/16/16 19:20; Admin Dose 10 MG; Start 09/15/16 at 04:00 Nitroglycerin (Nitroglycerin 2% Oint) 1 inch Q12 TD Last administered on 08:24; Admin Dose 1 INCH; Start 09/15/16 at 04:00 Losartan Potassium (Cozaar) 50 mg DAILY PO Last administered on 09/21/16 08:23 ; Admin Dose 50 MG; Start 09/15/16 at 04:00 Diagnostic Test (Pha) (Accu-Chek) 1 ea 02 XX Last administered on 09/20/16 02: 39; Admin Dose 1 EA; Start 09/16/16 at 02:00 Lorazepam (Ativan) 1 mg Q4 PRN IV CONTROL WITHDRAWAL SYMPTOMS; Start 09/15/16 at 10:00 Hydromorphone HCl (Dilaudid) 1 mg Q4H PRN IV PAIN Last administered on 10:19; Admin Dose 1 MG; Start 09/15/16 at 10:30 Miscellaneous Information 1 ea NOTE XX ; Start 09/15/16 at 16:00 Glucose (Glutose) 15 gm Q15M PRN PO DECREASED GLUCOSE; Start 09/15/16 at 16:00 Glucose (Glutose) 22.5 gm Q15M PRN PO DECREASED GLUCOSE; Start 09/15/16 at 16:00 Dextrose (D50w Syringe) 25 ml Q15M PRN IV DECREASED GLUCOSE Last administered on 09/19/16 08:29; Admin Dose 25 ML; Start 09/15/16 at 16:00 Dextrose (D50w Syringe) 50 ml Q15M PRN IV DECREASED GLUCOSE; Start 09/15/16 at 16:00 Glucagon (Glucagen) 1 mg Q15M PRN IM DECREASED GLUCOSE; Start 09/15/16 at 16:00 Glucose (Glutose) 15 gm Q15M PRN BUCCAL DECREASED GLUCOSE; Start 09/15/16 at 16: 00 Metoprolol Tartrate (Lopressor) 25 mg BID PO Last administered on 09/21/16 08: 23; Admin Dose 25 MG; Start 09/15/16 at 21:00 Aspirin (Halfprin) 81 mg DAILY PO Last administered on 09/21/16 08:24; Admin Dose 81 MG; Start 09/16/16 at 09:00 Clonidine HCl (Catapres-Tts 1 Patch) 1 patch Q7D TRANSDERM Last administered on 09/15/16 21:48; Admin Dose 1 PATCH; Start 09/15/16 at 21:00 Ondansetron HCl (Zofran Inj) 4 mg Q6H PRN IV NAUSEA AND/OR VOMITING Last administered on 09/21/16 08:24; Admin Dose 4 MG; Start 09/15/16 at 20:30 Nifedipine (Procardia Xl) 60 mg DAILY PO Last administered on 09/21/16 08:24; Admin Dose 60 MG; Start 09/17/16 at 09:00 Polyethylene Glycol (Miralax) 17 gm DAILY PRN PO CONSTIPATION Last administered on 09/17/16 08:41; Admin Dose 17 GM; Start 09/16/16 at 20:00 Pantoprazole (Protonix Tab) 40 mg DAILY@06 PO Last administered on 09/21/16 06 :04; Admin Dose 40 MG; Start 09/18/16 at 06:00 Isosorbide Mononitrate (Imdur) 30 mg DAILY PO Last administered on 09/21/16 08 :21; Admin Dose 30 MG; Start 09/20/16 at 15:30 Clopidogrel Bisulfate (plaVIX) 75 mg DAILY PO Last administered on 09/21/16 08 :24; Admin Dose 75 MG; Start 09/20/16 at 15:30 Atorvastatin Calcium (Lipitor) 40 mg HS PO Last administered on 09/20/16 20:55 ; Admin Dose 40 MG; Start 09/20/16 at 21:00 Insulin Glargine (Lantus) 10 unit DAILY@20 SC ; Start 09/20/16 at 20:00 ANDREW PEREZ M.D. September 21, 2016 14:07
--- NOTE | 2016-09-21 14:38 | CONS ---
Date/Time of Note Date/Time of Note DATE: 09/21/16 TIME: 14:37 Assessment/Plan Assessment/Plan Additional Assessment/Plan 1. Pancreatitis, recurrent, sonogram of the abdomen is negative except for a gallstone, clinically better amylase lipase almost back to normal. Patient pancreatitis is secondary to alcohol 2. Diabetes mellitus. 3. Positive troponin. 4. Alcohol abuse. 5. History of coronary artery bypass graft. 6. Tobacco usage. 7. The patient's LFTs all within normal limits. Plan Advance the diet IV fluid Pain management Routine lab [place] scan today, reversible perfusion defect in the lateral wall, cardiology follow-up Patient is scheduled for angiogram tomorrow Consultation Date/Type/Reason Admit Date/Time September 15, 2016 at 01:56 Type of Consultation: Cardiology Referring Provider: LUZ GALLEGOS MD 24 HR Interval Summary Free Text/Dictation Mild abdominal discomfort Exam/Review of Systems Vital Signs Vitals Vital Signs Date Time Temp Pulse Resp B/P Pulse Ox O2 Delivery O2 Flow Rate FiO2 09/21/16 12:10 82 09/21/16 11:58 98.8 18 94/52 99 Intake and Output 09/20/16 09/20/16 09/21/16 15:00 23:00 07:00 Intake Total 1200 ml 500 ml Balance 1200 ml 500 ml Exam Constitutional: alert, oriented, well developed Psych: nl mood/affect, no complaints Head: atraumatic, normocephalic Eyes: EOMI, PERRL, nl conjunctiva, nl lids, nl sclera ENMT: nl external ears & nose, nl lips & teeth, nl nasal mucosa & septum Neck: non-tender, supple Respiratory: clear to auscultation, normal air movement Cardiovascular: nl pulses, regular rate and rhythm Gastrointestinal: nl liver, spleen, non-tender, soft Musculoskeletal: nl extremities to inspection, nl gait and stance Extremities: normal pulses Neurological: PANTRY CHEF II-XII intact, nl mental status, nl speech, nl strength Skin: nl turgor, No rash or lesions Lymph: nl lymph nodes Results Result Diagram: 09/20/16 0646 09/21/16 0650 Results 24 hrs Laboratory Tests Test 09/20/16 17:39 09/20/16 17:49 09/20/16 20:52 09/21/16 06:50 Bedside Glucose 225 H 197 88 Sodium Level 131 L Potassium Level 4.7 Chloride Level 100 Carbon Dioxide Level 28 Anion Gap 8 Blood Urea Nitrogen 14 Creatinine 0.96 Glucose Level 407 #*H Calcium Level 9.8 Test 09/21/16 08:07 09/21/16 11:43 09/21/16 12:00 Bedside Glucose 449 *H 64 L 99 Medications Medications Current Medications Hydralazine HCl (Apresoline) 10 mg Q6H PRN IV ELEVATED BLOOD PRESSURE Last administered on 09/16/16 19:20; Admin Dose 10 MG; Start 09/15/16 at 04:00 Nitroglycerin (Nitroglycerin 2% Oint) 1 inch Q12 TD Last administered on 08:24; Admin Dose 1 INCH; Start 09/15/16 at 04:00 Losartan Potassium (Cozaar) 50 mg DAILY PO Last administered on 09/21/16 08:23 ; Admin Dose 50 MG; Start 09/15/16 at 04:00 Diagnostic Test (Pha) (Accu-Chek) 1 ea 02 XX Last administered on 09/20/16 02: 39; Admin Dose 1 EA; Start 09/16/16 at 02:00 Lorazepam (Ativan) 1 mg Q4 PRN IV CONTROL WITHDRAWAL SYMPTOMS; Start 09/15/16 at 10:00 Hydromorphone HCl (Dilaudid) 1 mg Q4H PRN IV PAIN Last administered on 14:18; Admin Dose 1 MG; Start 09/15/16 at 10:30 Miscellaneous Information 1 ea NOTE XX ; Start 09/15/16 at 16:00 Glucose (Glutose) 15 gm Q15M PRN PO DECREASED GLUCOSE; Start 09/15/16 at 16:00 Glucose (Glutose) 22.5 gm Q15M PRN PO DECREASED GLUCOSE; Start 09/15/16 at 16:00 Dextrose (D50w Syringe) 25 ml Q15M PRN IV DECREASED GLUCOSE Last administered on 09/19/16 08:29; Admin Dose 25 ML; Start 09/15/16 at 16:00 Dextrose (D50w Syringe) 50 ml Q15M PRN IV DECREASED GLUCOSE; Start 09/15/16 at 16:00 Glucagon (Glucagen) 1 mg Q15M PRN IM DECREASED GLUCOSE; Start 09/15/16 at 16:00 Glucose (Glutose) 15 gm Q15M PRN BUCCAL DECREASED GLUCOSE; Start 09/15/16 at 16: 00 Metoprolol Tartrate (Lopressor) 25 mg BID PO Last administered on 09/21/16 08: 23; Admin Dose 25 MG; Start 09/15/16 at 21:00 Aspirin (Halfprin) 81 mg DAILY PO Last administered on 09/21/16 08:24; Admin Dose 81 MG; Start 09/16/16 at 09:00 Clonidine HCl (Catapres-Tts 1 Patch) 1 patch Q7D TRANSDERM Last administered on 09/15/16 21:48; Admin Dose 1 PATCH; Start 09/15/16 at 21:00 Ondansetron HCl (Zofran Inj) 4 mg Q6H PRN IV NAUSEA AND/OR VOMITING Last administered on 09/21/16 08:24; Admin Dose 4 MG; Start 09/15/16 at 20:30 Nifedipine (Procardia Xl) 60 mg DAILY PO Last administered on 09/21/16 08:24; Admin Dose 60 MG; Start 09/17/16 at 09:00 Polyethylene Glycol (Miralax) 17 gm DAILY PRN PO CONSTIPATION Last administered on 09/17/16 08:41; Admin Dose 17 GM; Start 09/16/16 at 20:00 Pantoprazole (Protonix Tab) 40 mg DAILY@06 PO Last administered on 09/21/16 06 :04; Admin Dose 40 MG; Start 09/18/16 at 06:00 Isosorbide Mononitrate (Imdur) 30 mg DAILY PO Last administered on 09/21/16 08 :21; Admin Dose 30 MG; Start 09/20/16 at 15:30 Clopidogrel Bisulfate (plaVIX) 75 mg DAILY PO Last administered on 09/21/16 08 :24; Admin Dose 75 MG; Start 09/20/16 at 15:30 Atorvastatin Calcium (Lipitor) 40 mg HS PO Last administered on 09/20/16 20:55 ; Admin Dose 40 MG; Start 09/20/16 at 21:00 Insulin Glargine (Lantus) 10 unit DAILY@20 SC ; Start 09/20/16 at 20:00 TANNA CASAS MD September 21, 2016 14:38
--- NOTE | 2016-09-21 17:02 | PN ---
Date/Time of Note Date/Time of Note DATE: 09/21/16 TIME: 17:01 Assessment/Plan VTE Prophylaxis VTE Prophylaxis Intervention: other Lines/Catheters IV [facility] Type [facility] Urinary Cath still in place: No Assessment/Plan Chief Complaint/Hosp Course IMPRESSION: 1. The patient has uncontrolled diabetes mellitus.non compliance wmeds and diet 2. NSTEMI 3. Alcohol abuse. 4. Positive troponin. 5 pancreatitis 6 htn 7 DM plan per gi and cardio Problems: Subjective 24 Hr Interval Summary Subjective hx not possible: other (non compliance wmeds) Respiratory: no complaints Exam/Review of Systems Vital Signs Vitals Vital Signs Date Time Temp Pulse Resp B/P Pulse Ox O2 Delivery O2 Flow Rate FiO2 09/21/16 16:15 74 09/21/16 16:03 98.1 17 116/60 99 Intake and Output 09/20/16 09/20/16 09/21/16 15:00 23:00 07:00 Intake Total 1200 ml 500 ml Balance 1200 ml 500 ml Exam Neck: supple Respiratory: clear to auscultation Cardiovascular: regular rate and rhythm Results Result Diagram: 09/20/16 0646 09/21/16 0650 Results 24 hrs Laboratory Tests Test 09/20/16 17:39 09/20/16 17:49 09/20/16 20:52 09/21/16 06:50 Bedside Glucose 225 H 197 88 Sodium Level 131 L Potassium Level 4.7 Chloride Level 100 Carbon Dioxide Level 28 Anion Gap 8 Blood Urea Nitrogen 14 Creatinine 0.96 Glucose Level 407 #*H Calcium Level 9.8 Test 09/21/16 08:07 09/21/16 11:43 09/21/16 12:00 Bedside Glucose 449 *H 64 L 99 Medications Medications Current Medications Hydralazine HCl (Apresoline) 10 mg Q6H PRN IV ELEVATED BLOOD PRESSURE Last administered on 09/16/16 19:20; Admin Dose 10 MG; Start 09/15/16 at 04:00 Nitroglycerin (Nitroglycerin 2% Oint) 1 inch Q12 TD Last administered on 08:24; Admin Dose 1 INCH; Start 09/15/16 at 04:00 Losartan Potassium (Cozaar) 50 mg DAILY PO Last administered on 09/21/16 08:23 ; Admin Dose 50 MG; Start 09/15/16 at 04:00 Diagnostic Test (Pha) (Accu-Chek) 1 ea 02 XX Last administered on 09/20/16 02: 39; Admin Dose 1 EA; Start 09/16/16 at 02:00 Lorazepam (Ativan) 1 mg Q4 PRN IV CONTROL WITHDRAWAL SYMPTOMS; Start 09/15/16 at 10:00 Hydromorphone HCl (Dilaudid) 1 mg Q4H PRN IV PAIN Last administered on 14:18; Admin Dose 1 MG; Start 09/15/16 at 10:30 Miscellaneous Information 1 ea NOTE XX ; Start 09/15/16 at 16:00 Glucose (Glutose) 15 gm Q15M PRN PO DECREASED GLUCOSE; Start 09/15/16 at 16:00 Glucose (Glutose) 22.5 gm Q15M PRN PO DECREASED GLUCOSE; Start 09/15/16 at 16:00 Dextrose (D50w Syringe) 25 ml Q15M PRN IV DECREASED GLUCOSE Last administered on 09/19/16 08:29; Admin Dose 25 ML; Start 09/15/16 at 16:00 Dextrose (D50w Syringe) 50 ml Q15M PRN IV DECREASED GLUCOSE; Start 09/15/16 at 16:00 Glucagon (Glucagen) 1 mg Q15M PRN IM DECREASED GLUCOSE; Start 09/15/16 at 16:00 Glucose (Glutose) 15 gm Q15M PRN BUCCAL DECREASED GLUCOSE; Start 09/15/16 at 16: 00 Metoprolol Tartrate (Lopressor) 25 mg BID PO Last administered on 09/21/16 08: 23; Admin Dose 25 MG; Start 09/15/16 at 21:00 Aspirin (Halfprin) 81 mg DAILY PO Last administered on 09/21/16 08:24; Admin Dose 81 MG; Start 09/16/16 at 09:00 Clonidine HCl (Catapres-Tts 1 Patch) 1 patch Q7D TRANSDERM Last administered on 09/15/16 21:48; Admin Dose 1 PATCH; Start 09/15/16 at 21:00 Ondansetron HCl (Zofran Inj) 4 mg Q6H PRN IV NAUSEA AND/OR VOMITING Last administered on 09/21/16 08:24; Admin Dose 4 MG; Start 09/15/16 at 20:30 Nifedipine (Procardia Xl) 60 mg DAILY PO Last administered on 09/21/16 08:24; Admin Dose 60 MG; Start 09/17/16 at 09:00 Polyethylene Glycol (Miralax) 17 gm DAILY PRN PO CONSTIPATION Last administered on 09/17/16 08:41; Admin Dose 17 GM; Start 09/16/16 at 20:00 Pantoprazole (Protonix Tab) 40 mg DAILY@06 PO Last administered on 09/21/16 06 :04; Admin Dose 40 MG; Start 09/18/16 at 06:00 Isosorbide Mononitrate (Imdur) 30 mg DAILY PO Last administered on 09/21/16 08 :21; Admin Dose 30 MG; Start 09/20/16 at 15:30 Clopidogrel Bisulfate (plaVIX) 75 mg DAILY PO Last administered on 09/21/16 08 :24; Admin Dose 75 MG; Start 09/20/16 at 15:30 Atorvastatin Calcium (Lipitor) 40 mg HS PO Last administered on 09/20/16 20:55 ; Admin Dose 40 MG; Start 09/20/16 at 21:00 Insulin Glargine (Lantus) 10 unit DAILY@20 SC ; Start 09/20/16 at 20:00 LUZ GALLEGOS MD September 21, 2016 17:02
[2016-09-21] MEDS: ATORVASTATIN 40 MG TAB PO SCH (21:14)
[2016-09-21] MEDS: INSULIN GLARGINE [LANtus] 3 ML PEN SC SCH (21:29)
[2016-09-22] VITALS (10 sets, daily range): BP systolic 98–129; BP diastolic 54–80; PULSE 70–75; RESP 18–20
[2016-09-22] MEDS: POLYETHYLENE GLYCOL 17 GM PACKET PO PRN (00:52)
[2016-09-22] MEDS: HYDROmorphONE 1 MG/ML SYG IV PRN ×6 (01:50→23:10)
[2016-09-22] MEDS: ACCU-CHEK XX SCH (02:10)
[2016-09-22] MEDS: PANTOPRAZOLE (EC) 40 MG TAB PO SCH (05:59)
[2016-09-22] MEDS: INSULIN ASPART [NOVOLOG] 3 ML PEN SC SCH ×7 (08:00→20:52)
[2016-09-22] MEDS: NITROGLYCERIN 2% 1 GM OINT PKT TD SCH (08:15)
[2016-09-22] MEDS: METOPROLOL 25 MG TAB PO SCH ×2 (08:15→20:48)
[2016-09-22] MEDS: LOSARTAN 50 MG TAB PO SCH (08:15)
[2016-09-22] MEDS: ASPIRIN (EC) 81 MG TAB PO SCH (08:16)
[2016-09-22] MEDS: NIFEdipine (XL) 60 MG TAB PO SCH (08:16)
[2016-09-22] MEDS: CLOPIDOGREL 75 MG TAB PO SCH (08:16)
[2016-09-22] MEDS: ISOSORBIDE MONONITRATE(SR)30 MG TAB PO SCH (08:16)
[2016-09-22] MEDS: ONDANSETRON 4 MG INJ IV PRN (16:56)
--- NOTE | 2016-09-22 18:33 | PN ---
Date/Time of Note Date/Time of Note DATE: 09/22/16 TIME: 18:33 Assessment/Plan VTE Prophylaxis VTE Prophylaxis Intervention: other Lines/Catheters [facility] Urinary Cath still in place: No Assessment/Plan Chief Complaint/Hosp Course IMPRESSION: 1. The patient has uncontrolled diabetes mellitus.non compliance wmeds and diet 2. NSTEMI 3. Alcohol abuse. 4. Positive troponin. 5 pancreatitis 6 htn 7 DM plan per gi and cardio NEED CATH PER DR TURNER Problems: Subjective 24 Hr Interval Summary Subjective hx not possible: other (WAITING FOR CATH) Exam/Review of Systems Vital Signs Vitals Vital Signs Date Time Temp Pulse Resp B/P Pulse Ox O2 Delivery O2 Flow Rate FiO2 09/22/16 16:06 74 09/22/16 15:41 97.7 20 98/54 100 Intake and Output 09/21/16 09/21/16 09/22/16 15:00 23:00 07:00 Intake Total 250 ml 300 ml Balance 250 ml 300 ml Exam Neck: supple Respiratory: clear to auscultation Cardiovascular: regular rate and rhythm Gastrointestinal: soft Musculoskeletal: nl extremities to inspection Extremities: normal pulses Results Result Diagram: 09/20/16 0646 09/21/16 0650 Results 24 hrs Laboratory Tests Test 09/21/16 20:55 09/22/16 01:54 09/22/16 08:12 09/22/16 12:04 Bedside Glucose 266 H 196 112 251 H Test 09/22/16 17:02 Bedside Glucose 299 H Medications Medications Current Medications Hydralazine HCl (Apresoline) 10 mg Q6H PRN IV ELEVATED BLOOD PRESSURE Last administered on 09/16/16 19:20; Admin Dose 10 MG; Start 09/15/16 at 04:00 Nitroglycerin (Nitroglycerin 2% Oint) 1 inch Q12 TD Last administered on 08:15; Admin Dose 1 INCH; Start 09/15/16 at 04:00 Losartan Potassium (Cozaar) 50 mg DAILY PO Last administered on 09/22/16 08:15 ; Admin Dose 50 MG; Start 09/15/16 at 04:00 Diagnostic Test (Pha) (Accu-Chek) 1 ea 02 XX Last administered on 09/22/16 02: 10; Admin Dose 1 EA; Start 09/16/16 at 02:00 Lorazepam (Ativan) 1 mg Q4 PRN IV CONTROL WITHDRAWAL SYMPTOMS; Start 09/15/16 at 10:00 Hydromorphone HCl (Dilaudid) 1 mg Q4H PRN IV PAIN Last administered on 14:23; Admin Dose 1 MG; Start 09/15/16 at 10:30 Miscellaneous Information 1 ea NOTE XX ; Start 09/15/16 at 16:00 Glucose (Glutose) 15 gm Q15M PRN PO DECREASED GLUCOSE; Start 09/15/16 at 16:00 Glucose (Glutose) 22.5 gm Q15M PRN PO DECREASED GLUCOSE; Start 09/15/16 at 16:00 Dextrose (D50w Syringe) 25 ml Q15M PRN IV DECREASED GLUCOSE Last administered on 09/19/16 08:29; Admin Dose 25 ML; Start 09/15/16 at 16:00 Dextrose (D50w Syringe) 50 ml Q15M PRN IV DECREASED GLUCOSE; Start 09/15/16 at 16:00 Glucagon (Glucagen) 1 mg Q15M PRN IM DECREASED GLUCOSE; Start 09/15/16 at 16:00 Glucose (Glutose) 15 gm Q15M PRN BUCCAL DECREASED GLUCOSE; Start 09/15/16 at 16: 00 Metoprolol Tartrate (Lopressor) 25 mg BID PO Last administered on 09/22/16 08: 15; Admin Dose 25 MG; Start 09/15/16 at 21:00 Aspirin (Halfprin) 81 mg DAILY PO Last administered on 09/22/16 08:16; Admin Dose 81 MG; Start 09/16/16 at 09:00 Clonidine HCl (Catapres-Tts 1 Patch) 1 patch Q7D TRANSDERM Last administered on 09/15/16 21:48; Admin Dose 1 PATCH; Start 09/15/16 at 21:00 Ondansetron HCl (Zofran Inj) 4 mg Q6H PRN IV NAUSEA AND/OR VOMITING Last administered on 09/22/16 16:56; Admin Dose 4 MG; Start 09/15/16 at 20:30 Nifedipine (Procardia Xl) 60 mg DAILY PO Last administered on 09/22/16 08:16; Admin Dose 60 MG; Start 09/17/16 at 09:00 Polyethylene Glycol (Miralax) 17 gm DAILY PRN PO CONSTIPATION Last administered on 09/22/16 00:52; Admin Dose 17 GM; Start 09/16/16 at 20:00 Pantoprazole (Protonix Tab) 40 mg DAILY@06 PO Last administered on 09/22/16 05 :59; Admin Dose 40 MG; Start 09/18/16 at 06:00 Isosorbide Mononitrate (Imdur) 30 mg DAILY PO Last administered on 09/22/16 08 :16; Admin Dose 30 MG; Start 09/20/16 at 15:30 Clopidogrel Bisulfate (plaVIX) 75 mg DAILY PO Last administered on 09/22/16 08 :16; Admin Dose 75 MG; Start 09/20/16 at 15:30 Atorvastatin Calcium (Lipitor) 40 mg HS PO Last administered on 09/21/16 21:14 ; Admin Dose 40 MG; Start 09/20/16 at 21:00 Insulin Glargine (Lantus) 10 unit DAILY@20 SC Last administered on 09/21/16 21 :29; Admin Dose 10 UNIT; Start 09/20/16 at 20:00 LUZ GALLEGOS MD September 22, 2016 18:33
--- NOTE | 2016-09-22 19:11 | CONS ---
Date/Time of Note Date/Time of Note DATE: 09/22/16 TIME: 19:10 Assessment/Plan Assessment/Plan Additional Assessment/Plan Additional Assessment/Plan 1. Pancreatitis, recurrent, sonogram of the abdomen is negative except for a gallstone, clinically better amylase lipase almost back to normal. Patient pancreatitis is secondary to alcohol 2. Diabetes mellitus. 3. Positive troponin. 4. Alcohol abuse. 5. History of coronary artery bypass graft. 6. Tobacco usage. 7. The patient's LFTs all within normal limits. Plan Advance the diet IV fluid Pain management Routine lab [place] scan today, reversible perfusion defect in the lateral wall, cardiology follow-up Patient is scheduled for angiogram tomorrow Consultation Date/Type/Reason Admit Date/Time September 15, 2016 at 01:56 Type of Consultation: Cardiology Referring Provider: LUZ GALLEGOS MD 24 HR Interval Summary Constitutional: improved Exam/Review of Systems Vital Signs Vitals Vital Signs Date Time Temp Pulse Resp B/P Pulse Ox O2 Delivery O2 Flow Rate FiO2 09/22/16 16:06 74 09/22/16 15:41 97.7 20 98/54 100 Intake and Output 09/21/16 09/21/16 09/22/16 15:00 23:00 07:00 Intake Total 250 ml 300 ml Balance 250 ml 300 ml Exam Constitutional: alert, oriented, well developed Psych: nl mood/affect, no complaints Head: atraumatic, normocephalic Eyes: EOMI, PERRL, nl conjunctiva, nl lids, nl sclera ENMT: nl external ears & nose, nl lips & teeth, nl nasal mucosa & septum Neck: non-tender, supple Respiratory: clear to auscultation, normal air movement Cardiovascular: nl pulses, regular rate and rhythm Gastrointestinal: nl liver, spleen, non-tender, soft Musculoskeletal: nl extremities to inspection, nl gait and stance Extremities: normal pulses Neurological: [employer] II-XII intact, nl mental status, nl speech, nl strength Skin: nl turgor, No rash or lesions Lymph: nl lymph nodes Results Result Diagram: 09/20/16 0646 09/21/16 0650 Results 24 hrs Laboratory Tests Test 09/21/16 20:55 09/22/16 01:54 09/22/16 08:12 09/22/16 12:04 Bedside Glucose 266 H 196 112 251 H Test 09/22/16 17:02 Bedside Glucose 299 H Medications Medications Current Medications Hydralazine HCl (Apresoline) 10 mg Q6H PRN IV ELEVATED BLOOD PRESSURE Last administered on 09/16/16 19:20; Admin Dose 10 MG; Start 09/15/16 at 04:00 Nitroglycerin (Nitroglycerin 2% Oint) 1 inch Q12 TD Last administered on 08:15; Admin Dose 1 INCH; Start 09/15/16 at 04:00 Losartan Potassium (Cozaar) 50 mg DAILY PO Last administered on 09/22/16 08:15 ; Admin Dose 50 MG; Start 09/15/16 at 04:00 Diagnostic Test (Pha) (Accu-Chek) 1 ea 02 XX Last administered on 09/22/16 02: 10; Admin Dose 1 EA; Start 09/16/16 at 02:00 Lorazepam (Ativan) 1 mg Q4 PRN IV CONTROL WITHDRAWAL SYMPTOMS; Start 09/15/16 at 10:00 Hydromorphone HCl (Dilaudid) 1 mg Q4H PRN IV PAIN Last administered on 18:44; Admin Dose 1 MG; Start 09/15/16 at 10:30 Miscellaneous Information 1 ea NOTE XX ; Start 09/15/16 at 16:00 Glucose (Glutose) 15 gm Q15M PRN PO DECREASED GLUCOSE; Start 09/15/16 at 16:00 Glucose (Glutose) 22.5 gm Q15M PRN PO DECREASED GLUCOSE; Start 09/15/16 at 16:00 Dextrose (D50w Syringe) 25 ml Q15M PRN IV DECREASED GLUCOSE Last administered on 09/19/16 08:29; Admin Dose 25 ML; Start 09/15/16 at 16:00 Dextrose (D50w Syringe) 50 ml Q15M PRN IV DECREASED GLUCOSE; Start 09/15/16 at 16:00 Glucagon (Glucagen) 1 mg Q15M PRN IM DECREASED GLUCOSE; Start 09/15/16 at 16:00 Glucose (Glutose) 15 gm Q15M PRN BUCCAL DECREASED GLUCOSE; Start 09/15/16 at 16: 00 Metoprolol Tartrate (Lopressor) 25 mg BID PO Last administered on 09/22/16 08: 15; Admin Dose 25 MG; Start 09/15/16 at 21:00 Aspirin (Halfprin) 81 mg DAILY PO Last administered on 09/22/16 08:16; Admin Dose 81 MG; Start 09/16/16 at 09:00 Clonidine HCl (Catapres-Tts 1 Patch) 1 patch Q7D TRANSDERM Last administered on 09/15/16 21:48; Admin Dose 1 PATCH; Start 09/15/16 at 21:00 Ondansetron HCl (Zofran Inj) 4 mg Q6H PRN IV NAUSEA AND/OR VOMITING Last administered on 09/22/16 16:56; Admin Dose 4 MG; Start 09/15/16 at 20:30 Nifedipine (Procardia Xl) 60 mg DAILY PO Last administered on 09/22/16 08:16; Admin Dose 60 MG; Start 09/17/16 at 09:00 Polyethylene Glycol (Miralax) 17 gm DAILY PRN PO CONSTIPATION Last administered on 09/22/16 00:52; Admin Dose 17 GM; Start 09/16/16 at 20:00 Pantoprazole (Protonix Tab) 40 mg DAILY@06 PO Last administered on 09/22/16 05 :59; Admin Dose 40 MG; Start 09/18/16 at 06:00 Isosorbide Mononitrate (Imdur) 30 mg DAILY PO Last administered on 09/22/16 08 :16; Admin Dose 30 MG; Start 09/20/16 at 15:30 Clopidogrel Bisulfate (plaVIX) 75 mg DAILY PO Last administered on 09/22/16 08 :16; Admin Dose 75 MG; Start 09/20/16 at 15:30 Atorvastatin Calcium (Lipitor) 40 mg HS PO Last administered on 09/21/16 21:14 ; Admin Dose 40 MG; Start 09/20/16 at 21:00 Insulin Glargine (Lantus) 10 unit DAILY@20 SC Last administered on 09/21/16 21 :29; Admin Dose 10 UNIT; Start 09/20/16 at 20:00 TANNA CASAS MD September 22, 2016 19:11
--- NOTE | 2016-09-22 19:18 | CONS ---
Date/Time of Note Date/Time of Note DATE: 09/22/16 TIME: 19:11 Assessment/Plan Assessment/Plan Chief Complaint/Hosp Course IMPRESSION: 1. Positive troponin concerning for non-ST elevation myocardial infarction, assess significance.-downtrended cardiac enzymes. EF 45-50% by echo this admit. Lexiscan stress EF 41% with lateral ischemia 2. Chest pain, assess for true non-ST myocardial infarction versus possible type 2 infarction in the setting of pancreatitis. C/O ongoing chest pain- cardiac enzymes mildly downtrended but positive stress tert this admission for ischemia and decreased LVEF 3. Hypertension-Now on low end 4. Pancreatitis. 5. Diabetes mellitus with uncontrolled blood sugars. 6. Anemia. 7. History of substance abuse. 8. Ongoing tobacco usage. 9. ETOH abuse. Recc: -tele -serial ecg's -Continue asa -Continue BB/procardia/imdur/losartan -D/C clonidine TTS now that taking PO's and BP currently marginal as well as NTP -Continue PPI -No opening in cathlab for [facility] today. If cancelation will do tomorrow otherwise on schedule for thursday Problems: Consultation Date/Type/Reason Admit Date/Time September 15, 2016 at 01:56 Initial Consult Date 09/15/2016 Type of Consultation: Cardiology Reason for Consultation Abnl mpi Referring Provider: LUZ GALLEGOS MD Exam/Review of Systems Vital Signs Vitals Vital Signs Date Time Temp Pulse Resp B/P Pulse Ox O2 Delivery O2 Flow Rate FiO2 09/22/16 16:06 74 09/22/16 15:41 97.7 20 98/54 100 Intake and Output 09/21/16 09/21/16 09/22/16 15:00 23:00 07:00 Intake Total 250 ml 300 ml Balance 250 ml 300 ml Exam Review of Systems: CONSTITUTIONAL: No fevers, chills. PULMONARY: No sob CARDIOVASCULAR: intermittent chest pain GASTROINTESTINAL: No nausea/vomiting. GENITOURINARY: No hematuria/dysuria. MUSCULOSKELETAL: No myagias/arthalgias. PSYCHIATRIC: The patient denies depression. NEUROLOGIC: No weakness Constitutional: alert, oriented Psych: no complaints Head: normocephalic ENMT: mucosa pink and moist Neck: jvd (9 cm water), supple Respiratory: diminished breath sounds (at bases/B) Cardiovascular: regular rate and rhythm Gastrointestinal: non-tender, soft Musculoskeletal: muscle tone (normal) Extremities: edema (none) Neurological: other (No focal deficits) Results Result Diagram: 09/20/16 0646 09/21/16 0650 Results 24 hrs Laboratory Tests Test 09/21/16 20:55 09/22/16 01:54 09/22/16 08:12 09/22/16 12:04 Bedside Glucose 266 H 196 112 251 H Test 09/22/16 17:02 Bedside Glucose 299 H Medications Medications Current Medications Hydralazine HCl (Apresoline) 10 mg Q6H PRN IV ELEVATED BLOOD PRESSURE Last administered on 09/16/16 19:20; Admin Dose 10 MG; Start 09/15/16 at 04:00 Nitroglycerin (Nitroglycerin 2% Oint) 1 inch Q12 TD Last administered on 08:15; Admin Dose 1 INCH; Start 09/15/16 at 04:00 Losartan Potassium (Cozaar) 50 mg DAILY PO Last administered on 09/22/16 08:15 ; Admin Dose 50 MG; Start 09/15/16 at 04:00 Diagnostic Test (Pha) (Accu-Chek) 1 ea 02 XX Last administered on 09/22/16 02: 10; Admin Dose 1 EA; Start 09/16/16 at 02:00 Lorazepam (Ativan) 1 mg Q4 PRN IV CONTROL WITHDRAWAL SYMPTOMS; Start 09/15/16 at 10:00 Hydromorphone HCl (Dilaudid) 1 mg Q4H PRN IV PAIN Last administered on 18:44; Admin Dose 1 MG; Start 09/15/16 at 10:30 Miscellaneous Information 1 ea NOTE XX ; Start 09/15/16 at 16:00 Glucose (Glutose) 15 gm Q15M PRN PO DECREASED GLUCOSE; Start 09/15/16 at 16:00 Glucose (Glutose) 22.5 gm Q15M PRN PO DECREASED GLUCOSE; Start 09/15/16 at 16:00 Dextrose (D50w Syringe) 25 ml Q15M PRN IV DECREASED GLUCOSE Last administered on 09/19/16 08:29; Admin Dose 25 ML; Start 09/15/16 at 16:00 Dextrose (D50w Syringe) 50 ml Q15M PRN IV DECREASED GLUCOSE; Start 09/15/16 at 16:00 Glucagon (Glucagen) 1 mg Q15M PRN IM DECREASED GLUCOSE; Start 09/15/16 at 16:00 Glucose (Glutose) 15 gm Q15M PRN BUCCAL DECREASED GLUCOSE; Start 09/15/16 at 16: 00 Metoprolol Tartrate (Lopressor) 25 mg BID PO Last administered on 09/22/16 08: 15; Admin Dose 25 MG; Start 09/15/16 at 21:00 Aspirin (Halfprin) 81 mg DAILY PO Last administered on 09/22/16 08:16; Admin Dose 81 MG; Start 09/16/16 at 09:00 Clonidine HCl (Catapres-Tts 1 Patch) 1 patch Q7D TRANSDERM Last administered on 09/15/16 21:48; Admin Dose 1 PATCH; Start 09/15/16 at 21:00 Ondansetron HCl (Zofran Inj) 4 mg Q6H PRN IV NAUSEA AND/OR VOMITING Last administered on 09/22/16 16:56; Admin Dose 4 MG; Start 09/15/16 at 20:30 Nifedipine (Procardia Xl) 60 mg DAILY PO Last administered on 09/22/16 08:16; Admin Dose 60 MG; Start 09/17/16 at 09:00 Polyethylene Glycol (Miralax) 17 gm DAILY PRN PO CONSTIPATION Last administered on 09/22/16 00:52; Admin Dose 17 GM; Start 09/16/16 at 20:00 Pantoprazole (Protonix Tab) 40 mg DAILY@06 PO Last administered on 09/22/16 05 :59; Admin Dose 40 MG; Start 09/18/16 at 06:00 Isosorbide Mononitrate (Imdur) 30 mg DAILY PO Last administered on 09/22/16 08 :16; Admin Dose 30 MG; Start 09/20/16 at 15:30 Clopidogrel Bisulfate (plaVIX) 75 mg DAILY PO Last administered on 09/22/16 08 :16; Admin Dose 75 MG; Start 09/20/16 at 15:30 Atorvastatin Calcium (Lipitor) 40 mg HS PO Last administered on 09/21/16 21:14 ; Admin Dose 40 MG; Start 09/20/16 at 21:00 Insulin Glargine (Lantus) 10 unit DAILY@20 SC Last administered on 5/14/17at 21 :29; Admin Dose 10 UNIT; Start 09/20/16 at 20:00 JHONATAN TURNER September 22, 2016 19:18
[2016-09-22] MEDS: ATORVASTATIN 40 MG TAB PO SCH (20:48)
[2016-09-22] MEDS: INSULIN GLARGINE [LANtus] 3 ML PEN SC SCH (20:52)
[2016-09-23] VITALS (11 sets, daily range): BP systolic 101–143; BP diastolic 60–79; PULSE 63–81; RESP 16–19
[2016-09-23] MEDS: ONDANSETRON 4 MG INJ IV PRN ×3 (01:43→18:46)
[2016-09-23] MEDS: ACCU-CHEK XX SCH (02:00)
[2016-09-23] MEDS: HYDROmorphONE 1 MG/ML SYG IV PRN ×5 (03:11→20:04)
[2016-09-23] MEDS: PANTOPRAZOLE (EC) 40 MG TAB PO SCH (06:00)
[2016-09-23 07:25] LABS: ADD SCAN DIFF NO
[2016-09-23 07:28] LABS: BASOPHILS % 0.8 % (0.0-2.0); EOSINOPHILS # 0.1 10^3/ul (0.0-0.5); EOSINOPHILS % 2.9 % (0.0-7.0); HEMATOCRIT 32.2 % (42.0-52.0); HEMOGLOBIN 10.8 g/dl (14.0-18.0); LYMPHOCYTES # 1.2 10^3/ul (0.8-2.9); LYMPHOCYTES % 30.4 % (15.0-51.0); MEAN CORPUSCULAR HEMOGLOBIN 32.8 pg (29.0-33.0); MEAN CORPUSCULAR HGB CONC 33.5 g/dl (32.0-37.0); MEAN CORPUSCULAR VOLUME 97.9 fl (82.0-101.0); MEAN PLATELET VOLUME 10.2 fl (7.4-10.4); MONOCYTE # 0.6 10^3/ul (0.3-0.9); MONOCYTES % 16.2 % (0.0-11.0); NEUTROPHIL # 1.9 10^3/ul (1.6-7.5); NEUTROPHILS % 49.4 % (39.0-77.0); PLATELET COUNT 322 10^3/UL (140-415); RED BLOOD COUNT 3.29 10^6/ul (4.70-6.10); RED CELL DISTRIBUTION WIDTH 12.9 % (11.5-14.5); WHITE BLOOD COUNT 3.8 10^3/ul (4.8-10.8)
[2016-09-23 07:44] LABS: INR 0.85; PROTIME 11.6 Sec (12.2-14.2); PT RATIO 0.9
[2016-09-23 07:47] LABS: POTASSIUM 4.2 mmol/L (3.5-5.1)
[2016-09-23 07:49] LABS: CREATININE 0.88 mg/dl (0.61-1.24)
[2016-09-23 07:50] LABS: CALCIUM 10.1 mg/dl (8.4-10.2)
[2016-09-23] MEDS: CLOPIDOGREL 75 MG TAB PO SCH (08:26)
[2016-09-23] MEDS: ISOSORBIDE MONONITRATE(SR)30 MG TAB PO SCH (08:27)
[2016-09-23] MEDS: LOSARTAN 50 MG TAB PO SCH (08:27)
[2016-09-23] MEDS: NIFEdipine (XL) 60 MG TAB PO SCH (08:27)
[2016-09-23] MEDS: METOPROLOL 25 MG TAB PO SCH ×2 (08:28→20:11)
[2016-09-23] MEDS: ASPIRIN (EC) 81 MG TAB PO SCH (08:28)
[2016-09-23] MEDS: INSULIN ASPART [NOVOLOG] 3 ML PEN SC SCH ×8 (08:37→20:13)
[2016-09-23] MEDS ORDERED: DIAZEPAM 5 MG TAB PO ONE (10:00)
[2016-09-23] MEDS ORDERED: DIPHENHYDRAMINE 50 MG CAP PO ONE (10:00)
--- NOTE | 2016-09-23 10:12 | CONS ---
Date/Time of Note Date/Time of Note DATE: 09/23/16 TIME: 10:10 Assessment/Plan Assessment/Plan Additional Assessment/Plan 1. Positive troponin concerning for non-ST elevation myocardial infarction, assess significance.-downtrended cardiac enzymes. EF 45-50% by echo this admit. Lexiscan stress EF 41% with lateral ischemia - LHC to be done on WED, NPO past midnight scheduled. 2. Chest pain, assess for true non-ST myocardial infarction versus possible type 2 infarction in the setting of pancreatitis. C/O ongoing chest pain- cardiac enzymes mildly downtrended but positive stress tert this admission for ischemia and decreased LVEF 3. Hypertension-Now on low end - better now 4. Pancreatitis- resolving. 5. Diabetes mellitus with uncontrolled blood sugars- on meds. 6. Anemia. 7. History of substance abuse. 8. Ongoing tobacco usage. 9. ETOH abuse. Consultation Date/Type/Reason Admit Date/Time September 15, 2016 at 01:56 Type of Consultation: Cardiology Referring Provider: LUZ GALLEGOS MD 24 HR Interval Summary Free Text/Dictation LHC to be done on WED, NPO past midnight scheduled. ROS: No fever, no chills, no nausea, no vomiting, no diarrhea/constipation No recent weight changes No chest pain, no PND, no orthopnea No dizziness, blurred vision No thirst, no heat or cold intolerance Exam/Review of Systems Vital Signs Vitals Vital Signs Date Time Temp Pulse Resp B/P Pulse Ox O2 Delivery O2 Flow Rate FiO2 09/23/16 08:10 66 09/23/16 07:44 98.4 16 143/79 98 Intake and Output 09/22/16 09/22/16 09/23/16 15:00 23:00 07:00 Intake Total 1000 ml 980 ml Balance 1000 ml 980 ml Exam General: WN/WD/NAD, AOx 3 HEENT: Unicetric/atraumatic/EOMI (follow commands) NECK: JVD elevated, no thyromegaly Lymph: no lymphadenopathy HEART: regular with no S3, II/ systolic murmur at apex LUNGS: Coarse sounds ABD: soft, NT, ND, +BS : Intact Neuro: non focal SKIN: chronic changes EXT: trace edema Results Result Diagram: 09/23/16 0625 09/23/16624 Results 24 hrs Laboratory Tests Test 09/22/16 12:04 09/22/16 17:02 09/22/16 20:31 09/23/16 02:27 Bedside Glucose 251 H 299 H 287 H 354 H Test 09/23/16 06:25 09/23/16 08:23 White Blood Count 3.8 L Red Blood Count 3.29 L Hemoglobin 10.8 L Hematocrit 32.2 L Mean Corpuscular Volume 97.9 Mean Corpuscular Hemoglobin 32.8 Mean Corpuscular Hemoglobin Concent 33.5 Red Cell Distribution Width 12.9 Platelet Count 322 # Mean Platelet Volume 10.2 Neutrophils % 49.4 Lymphocytes % 30.4 Monocytes % 16.2 H Eosinophils % 2.9 Basophils % 0.8 Nucleated Red Blood Cells % 0.0 Neutrophils # 1.9 Lymphocytes # 1.2 Monocytes # 0.6 Eosinophils # 0.1 Basophils # 0.0 Nucleated Red Blood Cells # 0.0 Prothrombin Time 11.6 L Prothrombin Time Ratio 0.9 INR International Normalized Ratio 0.85 Sodium Level 135 Potassium Level 4.2 Chloride Level 97 Carbon Dioxide Level 28 Anion Gap 14 Blood Urea Nitrogen 19 Creatinine 0.88 Glucose Level 240 #H Calcium Level 10.1 Bedside Glucose 193 Medications Medications Current Medications Hydralazine HCl (Apresoline) 10 mg Q6H PRN IV ELEVATED BLOOD PRESSURE Last administered on 09/16/16 19:20; Admin Dose 10 MG; Start 09/15/16 at 04:00 Losartan Potassium (Cozaar) 50 mg DAILY PO Last administered on 09/23/16 08:27 ; Admin Dose 50 MG; Start 09/15/16 at 04:00 Diagnostic Test (Pha) (Accu-Chek) 1 ea 02 XX Last administered on 09/22/16 02: 10; Admin Dose 1 EA; Start 09/16/16 at 02:00 Lorazepam (Ativan) 1 mg Q4 PRN IV CONTROL WITHDRAWAL SYMPTOMS; Start 09/15/16 at 10:00 Hydromorphone HCl (Dilaudid) 1 mg Q4H PRN IV PAIN Last administered on 07:42; Admin Dose 1 MG; Start 09/15/16 at 10:30 Miscellaneous Information 1 ea NOTE XX ; Start 09/15/16 at 16:00 Glucose (Glutose) 15 gm Q15M PRN PO DECREASED GLUCOSE; Start 09/15/16 at 16:00 Glucose (Glutose) 22.5 gm Q15M PRN PO DECREASED GLUCOSE; Start 09/15/16 at 16:00 Dextrose (D50w Syringe) 25 ml Q15M PRN IV DECREASED GLUCOSE Last administered on 09/19/16 08:29; Admin Dose 25 ML; Start 09/15/16 at 16:00 Dextrose (D50w Syringe) 50 ml Q15M PRN IV DECREASED GLUCOSE; Start 09/15/16 at 16:00 Glucagon (Glucagen) 1 mg Q15M PRN IM DECREASED GLUCOSE; Start 09/15/16 at 16:00 Glucose (Glutose) 15 gm Q15M PRN BUCCAL DECREASED GLUCOSE; Start 09/15/16 at 16: 00 Metoprolol Tartrate (Lopressor) 25 mg BID PO Last administered on 09/23/16 08: 28; Admin Dose 25 MG; Start 09/15/16 at 21:00 Aspirin (Halfprin) 81 mg DAILY PO Last administered on 09/23/16 08:28; Admin Dose 81 MG; Start 09/16/16 at 09:00 Ondansetron HCl (Zofran Inj) 4 mg Q6H PRN IV NAUSEA AND/OR VOMITING Last administered on 09/23/16 08:37; Admin Dose 4 MG; Start 09/15/16 at 20:30 Nifedipine (Procardia Xl) 60 mg DAILY PO Last administered on 09/23/16 08:27; Admin Dose 60 MG; Start 09/17/16 at 09:00 Polyethylene Glycol (Miralax) 17 gm DAILY PRN PO CONSTIPATION Last administered on 09/22/16 00:52; Admin Dose 17 GM; Start 09/16/16 at 20:00 Pantoprazole (Protonix Tab) 40 mg DAILY@06 PO Last administered on 09/22/16 05 :59; Admin Dose 40 MG; Start 09/18/16 at 06:00 Isosorbide Mononitrate (Imdur) 30 mg DAILY PO Last administered on 09/23/16 08 :27; Admin Dose 30 MG; Start 09/20/16 at 15:30 Clopidogrel Bisulfate (plaVIX) 75 mg DAILY PO Last administered on 09/23/16 08 :26; Admin Dose 75 MG; Start 09/20/16 at 15:30 Atorvastatin Calcium (Lipitor) 40 mg HS PO Last administered on 09/22/16 20:48 ; Admin Dose 40 MG; Start 09/20/16 at 21:00 Insulin Glargine (Lantus) 10 unit DAILY@20 SC Last administered on 09/22/16 20 :52; Admin Dose 10 UNIT; Start 09/20/16 at 20:00 ANILA MONROY MD September 23, 2016 10:12
--- NOTE | 2016-09-23 19:10 | PN ---
Date/Time of Note Date/Time of Note DATE: 09/23/16 TIME: 19:09 Assessment/Plan VTE Prophylaxis VTE Prophylaxis Intervention: other Lines/Catheters IV [facility] Type [facility]from [facility] Urinary Cath still in place: No Assessment/Plan Chief Complaint/Hosp Course IMPRESSION: 1. The patient has uncontrolled diabetes mellitus.non compliance wmeds and diet on insulin 2. NSTEMI 3. Alcohol abuse. 4. Positive troponin. 5 pancreatitis 6 htn 7 DM plan per gi and cardio NEED CATH PER DR TURNER Problems: Subjective 24 Hr Interval Summary Respiratory: no complaints Cardiovascular: no complaints Exam/Review of Systems Vital Signs Vitals Vital Signs Date Time Temp Pulse Resp B/P Pulse Ox O2 Delivery O2 Flow Rate FiO2 09/23/16 16:43 76 09/23/16 15:48 98.4 16 104/62 98 Intake and Output 09/22/16 09/22/16 09/23/16 14:59 22:59 06:59 Intake Total 1000 ml 980 ml Balance 1000 ml 980 ml Exam Neck: supple Respiratory: clear to auscultation Cardiovascular: regular rate and rhythm Gastrointestinal: soft Musculoskeletal: nl extremities to inspection Extremities: normal pulses Results Result Diagram: 09/23/16 0625 09/23/16 0625 Results 24 hrs Laboratory Tests Test 09/22/16 20:31 09/23/16 02:03 09/23/16 02:27 09/23/16 06:25 Bedside Glucose 287 H 312 H 354 H White Blood Count 3.8 L Red Blood Count 3.29 L Hemoglobin 10.8 L Hematocrit 32.2 L Mean Corpuscular Volume 97.9 Mean Corpuscular Hemoglobin 32.8 Mean Corpuscular Hemoglobin Concent 33.5 Red Cell Distribution Width 12.9 Platelet Count 322 # Mean Platelet Volume 10.2 Neutrophils % 49.4 Lymphocytes % 30.4 Monocytes % 16.2 H Eosinophils % 2.9 Basophils % 0.8 Nucleated Red Blood Cells % 0.0 Neutrophils # 1.9 Lymphocytes # 1.2 Monocytes # 0.6 Eosinophils # 0.1 Basophils # 0.0 Nucleated Red Blood Cells # 0.0 Prothrombin Time 11.6 L Prothrombin Time Ratio 0.9 INR International Normalized Ratio 0.85 Sodium Level 135 Potassium Level 4.2 Chloride Level 97 Carbon Dioxide Level 28 Anion Gap 14 Blood Urea Nitrogen 19 Creatinine 0.88 Glucose Level 240 #H Calcium Level 10.1 Test 09/23/16 08:23 09/23/16 12:02 09/23/16 17:06 Bedside Glucose 193 244 H 378 H Medications Medications Current Medications Hydralazine HCl (Apresoline) 10 mg Q6H PRN IV ELEVATED BLOOD PRESSURE Last administered on 09/16/16 19:20; Admin Dose 10 MG; Start 09/15/16 at 04:00 Losartan Potassium (Cozaar) 50 mg DAILY PO Last administered on 09/23/16 08:27 ; Admin Dose 50 MG; Start 09/15/16 at 04:00 Diagnostic Test (Pha) (Accu-Chek) 1 ea 02 XX Last administered on 09/22/16 02: 10; Admin Dose 1 EA; Start 09/16/16 at 02:00 Lorazepam (Ativan) 1 mg Q4 PRN IV CONTROL WITHDRAWAL SYMPTOMS; Start 09/15/16 at 10:00 Hydromorphone HCl (Dilaudid) 1 mg Q4H PRN IV PAIN Last administered on 15:59; Admin Dose 1 MG; Start 09/15/16 at 10:30 Miscellaneous Information 1 ea NOTE XX ; Start 09/15/16 at 16:00 Glucose (Glutose) 15 gm Q15M PRN PO DECREASED GLUCOSE; Start 09/15/16 at 16:00 Glucose (Glutose) 22.5 gm Q15M PRN PO DECREASED GLUCOSE; Start 09/15/16 at 16:00 Dextrose (D50w Syringe) 25 ml Q15M PRN IV DECREASED GLUCOSE Last administered on 09/19/16 08:29; Admin Dose 25 ML; Start 09/15/16 at 16:00 Dextrose (D50w Syringe) 50 ml Q15M PRN IV DECREASED GLUCOSE; Start 09/15/16 at 16:00 Glucagon (Glucagen) 1 mg Q15M PRN IM DECREASED GLUCOSE; Start 09/15/16 at 16:00 Glucose (Glutose) 15 gm Q15M PRN BUCCAL DECREASED GLUCOSE; Start 09/15/16 at 16: 00 Metoprolol Tartrate (Lopressor) 25 mg BID PO Last administered on 09/23/16 08: 28; Admin Dose 25 MG; Start 09/15/16 at 21:00 Aspirin (Halfprin) 81 mg DAILY PO Last administered on 09/23/16 08:28; Admin Dose 81 MG; Start 09/16/16 at 09:00 Ondansetron HCl (Zofran Inj) 4 mg Q6H PRN IV NAUSEA AND/OR VOMITING Last administered on 09/23/16 18:46; Admin Dose 4 MG; Start 09/15/16 at 20:30 Nifedipine (Procardia Xl) 60 mg DAILY PO Last administered on 09/23/16 08:27; Admin Dose 60 MG; Start 09/17/16 at 09:00 Polyethylene Glycol (Miralax) 17 gm DAILY PRN PO CONSTIPATION Last administered on 09/22/16 00:52; Admin Dose 17 GM; Start 09/16/16 at 20:00 Pantoprazole (Protonix Tab) 40 mg DAILY@06 PO Last administered on 09/22/16 05 :59; Admin Dose 40 MG; Start 09/18/16 at 06:00 Isosorbide Mononitrate (Imdur) 30 mg DAILY PO Last administered on 09/23/16 08 :27; Admin Dose 30 MG; Start 09/20/16 at 15:30 Clopidogrel Bisulfate (plaVIX) 75 mg DAILY PO Last administered on 09/23/16 08 :26; Admin Dose 75 MG; Start 09/20/16 at 15:30 Atorvastatin Calcium (Lipitor) 40 mg HS PO Last administered on 09/22/16 20:48 ; Admin Dose 40 MG; Start 09/20/16 at 21:00 Insulin Glargine (Lantus) 18 unit DAILY@20 SC ; Start 09/23/16 at 20:00 LUZ GALLEGOS MD September 23, 2016 19:10
[2016-09-23] MEDS: ATORVASTATIN 40 MG TAB PO SCH (20:10)
[2016-09-23] MEDS: INSULIN GLARGINE [LANtus] 3 ML PEN SC SCH (20:14)
[2016-09-24] VITALS (22 sets, daily range): BP systolic 108–158; BP diastolic 70–87; PULSE 72–85; RESP 15–20
[2016-09-24] MEDS: HYDROmorphONE 1 MG/ML SYG IV PRN ×6 (00:32→22:46)
[2016-09-24] MEDS: ACCU-CHEK XX SCH (02:36)
[2016-09-24] MEDS: PANTOPRAZOLE (EC) 40 MG TAB PO SCH (06:17)
[2016-09-24] MEDS: POLYETHYLENE GLYCOL 17 GM PACKET PO PRN (06:22)
[2016-09-24] MEDS: INSULIN ASPART [NOVOLOG] 3 ML PEN SC SCH ×7 (07:46→20:36)
[2016-09-24] MEDS: NIFEdipine (XL) 60 MG TAB PO SCH (08:04)
[2016-09-24] MEDS: ASPIRIN (EC) 81 MG TAB PO SCH (08:04)
[2016-09-24] MEDS: CLOPIDOGREL 75 MG TAB PO SCH (08:04)
[2016-09-24] MEDS: METOPROLOL 25 MG TAB PO SCH ×2 (08:04→20:36)
[2016-09-24] MEDS: ISOSORBIDE MONONITRATE(SR)30 MG TAB PO SCH (08:04)
[2016-09-24] MEDS: LOSARTAN 50 MG TAB PO SCH (08:05)
[2016-09-24] MEDS ORDERED: HEPARIN 1000 UNITS/ML 10 ML INJ ONE (10:43)
[2016-09-24] MEDS ORDERED: VERAPAMIL 5 MG INJ ONE (10:43)
[2016-09-24] MEDS ORDERED: FENTAnyl 50 MCG/ML VIAL ONE (10:43)
[2016-09-24] MEDS ORDERED: MIDAZOLAM 1 MG/ML 2 ML INJ ONE (10:43)
[2016-09-24] MEDS ORDERED: NITROGLYCERIN (IC) 100 MCG/ML INJ ONE (10:43)
[2016-09-24] MEDS ORDERED: IODIXANOL LOCM 100 ML BTL ONE (10:46)
[2016-09-24] MEDS ORDERED: LIDOCAINE 1% (MDV) 20 ML INJ ONE (10:46)
[2016-09-24] MEDS ORDERED: hydrALAzine 20 MG INJ ONE (10:50)
[2016-09-24] MEDS ORDERED: IOHEXOL 350MG/ML 50 ML BTL ONE (10:52)
[2016-09-24] MEDS ORDERED: SOD CHLORIDE 0.9% 1,000 ML IV SCH (13:03)
--- NOTE | 2016-09-24 13:03 | CONS ---
Date/Time of Note Date/Time of Note DATE: 09/24/16 TIME: 12:56 Assessment/Plan Assessment/Plan Chief Complaint/Hosp Course IMPRESSION: 1. Positive troponin concerning for non-ST elevation myocardial infarction, assess significance.-downtrended cardiac enzymes. EF 45-50% by echo this admit. Lexiscan stress EF 41% with lateral ischemia. Now s/p LHC with patent STILL-LAD and SVG-RCA, occludede svg-? LCX. Diffuse small vessel disease of LCX/OM 2. Chest pain, assess for true non-ST myocardial infarction versus possible type 2 infarction in the setting of pancreatitis. C/O ongoing chest pain- cardiac enzymes mildly downtrended but positive stress tert this admission for ischemia and decreased LVEF 40-45% by echo 3. Hypertension-Now on low end 4. Pancreatitis. 5. Diabetes mellitus with uncontrolled blood sugars. 6. Anemia. 7. History of substance abuse. 8. Ongoing tobacco usage. 9. ETOH abuse. Recc: -tele -serial ecg's -Continue asa -Continue BB/procardia/losartan and make small increase to imdur to improveCP -Continue PPI Problems: Consultation Date/Type/Reason Admit Date/Time September 15, 2016 at 01:56 Initial Consult Date 09/15/2016 Type of Consultation: Cardiology Reason for Consultation Chest pain Referring Provider: LUZ GALLEGOS MD Exam/Review of Systems Vital Signs Vitals Vital Signs Date Time Temp Pulse Resp B/P Pulse Ox O2 Delivery O2 Flow Rate FiO2 09/24/16 08:10 80 09/24/16 07:17 97.9 16 158/87 100 Intake and Output 09/23/16 09/23/16 09/24/16 15:00 23:00 07:00 Intake Total 1320 ml 500 ml Output Total 900 ml Balance 1320 ml -400 ml Exam Review of Systems: CONSTITUTIONAL: No fevers, chills. PULMONARY: No sob CARDIOVASCULAR: intermittent chest pain GASTROINTESTINAL: No nausea/vomiting. GENITOURINARY: No hematuria/dysuria. MUSCULOSKELETAL: No myagias/arthalgias. PSYCHIATRIC: The patient denies depression. NEUROLOGIC: No weakness Constitutional: alert Psych: no complaints Head: normocephalic ENMT: mucosa pink and moist Neck: jvd, supple Cardiovascular: regular rate and rhythm Gastrointestinal: non-tender, soft Extremities: edema (none) Neurological: other (No focal deficits) Results Result Diagram: 09/23/16 0625 09/23/16 0625 Results 24 hrs Laboratory Tests Test 09/23/16 17:06 09/23/16 20:09 09/24/16 02:32 09/24/16 08:03 Bedside Glucose 378 H 229 H 221 H 167 Medications Medications Current Medications Hydralazine HCl (Apresoline) 10 mg Q6H PRN IV ELEVATED BLOOD PRESSURE Last administered on 09/16/16 19:20; Admin Dose 10 MG; Start 09/15/16 at 04:00 Losartan Potassium (Cozaar) 50 mg DAILY PO Last administered on 09/24/16 08:05 ; Admin Dose 50 MG; Start 09/15/16 at 04:00 Diagnostic Test (Pha) (Accu-Chek) 1 ea 02 XX Last administered on 09/24/16 02: 36; Admin Dose 1 EA; Start 09/16/16 at 02:00 Lorazepam (Ativan) 1 mg Q4 PRN IV CONTROL WITHDRAWAL SYMPTOMS; Start 09/15/16 at 10:00 Hydromorphone HCl (Dilaudid) 1 mg Q4H PRN IV PAIN Last administered on 10:14; Admin Dose 1 MG; Start 09/15/16 at 10:30 Miscellaneous Information 1 ea NOTE XX ; Start 09/15/16 at 16:00 Glucose (Glutose) 15 gm Q15M PRN PO DECREASED GLUCOSE; Start 09/15/16 at 16:00 Glucose (Glutose) 22.5 gm Q15M PRN PO DECREASED GLUCOSE; Start 09/15/16 at 16:00 Dextrose (D50w Syringe) 25 ml Q15M PRN IV DECREASED GLUCOSE Last administered on 09/19/16 08:29; Admin Dose 25 ML; Start 09/15/16 at 16:00 Dextrose (D50w Syringe) 50 ml Q15M PRN IV DECREASED GLUCOSE; Start 09/15/16 at 16:00 Glucagon (Glucagen) 1 mg Q15M PRN IM DECREASED GLUCOSE; Start 09/15/16 at 16:00 Glucose (Glutose) 15 gm Q15M PRN BUCCAL DECREASED GLUCOSE; Start 09/15/16 at 16: 00 Metoprolol Tartrate (Lopressor) 25 mg BID PO Last administered on 09/24/16 08: 04; Admin Dose 25 MG; Start 09/15/16 at 21:00 Aspirin (Halfprin) 81 mg DAILY PO Last administered on 09/24/16 08:04; Admin Dose 81 MG; Start 09/16/16 at 09:00 Ondansetron HCl (Zofran Inj) 4 mg Q6H PRN IV NAUSEA AND/OR VOMITING Last administered on 09/23/16 18:46; Admin Dose 4 MG; Start 09/15/16 at 20:30 Nifedipine (Procardia Xl) 60 mg DAILY PO Last administered on 09/24/16 08:04; Admin Dose 60 MG; Start 09/17/16 at 09:00 Polyethylene Glycol (Miralax) 17 gm DAILY PRN PO CONSTIPATION Last administered on 09/24/16 06:22; Admin Dose 17 GM; Start 09/16/16 at 20:00 Pantoprazole (Protonix Tab) 40 mg DAILY@06 PO Last administered on 09/24/16 06 :17; Admin Dose 40 MG; Start 09/18/16 at 06:00 Isosorbide Mononitrate (Imdur) 30 mg DAILY PO Last administered on 09/24/16 08 :04; Admin Dose 30 MG; Start 09/20/16 at 15:30 Clopidogrel Bisulfate (plaVIX) 75 mg DAILY PO Last administered on 09/24/16 08 :04; Admin Dose 75 MG; Start 09/20/16 at 15:30 Atorvastatin Calcium (Lipitor) 40 mg HS PO Last administered on 09/23/16 20:10 ; Admin Dose 40 MG; Start 09/20/16 at 21:00 Insulin Glargine (Lantus) 18 unit DAILY@20 SC Last administered on 09/23/16 20 :14; Admin Dose 18 UNIT; Start 09/23/16 at 20:00 JHONATAN TURNER September 24, 2016 13:03
[2016-09-24] MEDS ORDERED: ONDANSETRON 4 MG INJ IV PRN (13:30)
[2016-09-24] MEDS ORDERED: ACETAMINOPHEN 325 MG TAB PO PRN (13:30)
[2016-09-24] MEDS ORDERED: AL HYDROX/MG HYDROX/SIMETH 30 ML CUP PO PRN (13:30)
--- NOTE | 2016-09-24 13:41 | CARRPT ---
DATE OF PROCEDURE: 09/24/2016 TYPE OF PROCEDURE: 1. Left heart catheterization. 2. Coronary angiography including STILL bypass graft angiography. 3. Femoral angiography. 4. Perclose closure device to right femoral artery. 5. Aortic root angiography. 6. Moderate conscious sedation time 60 minutes. ATTENDING PHYSICIAN: Jhonatan Green MD REFERRING PHYSICIAN: Dr. Arvind Gallegos. INDICATION: Non-ST elevation myocardial infarction with positive ischemia by stress test and ongoin g chest pain. BRIEF HISTORY AND HOSPITAL COURSE: Mr. Dowd is a 45-year-old male with history of coronary artery disease, status post coronary bypass grafting, hypertension, dyslipidemia who initially presented w ith complaints of abdominal pain and was diagnosed with pancreatitis. In this setting, the patient ruled in for a [id number] myocardial infarction. The patient subsequently was medically manag ed and underwent a cardiac stress test revealing possible inferolateral ischemia with decreased EF a nd subsequently was brought to the cardiac clinical lab technologist in order to assess for the possibility of signif icant coronary artery disease lending to his symptoms of non-ST elevation myocardial infarction, gerard st pain and positive stress test findings. PROCEDURE: After informed consent was obtained, the patient was brought to the [facility] cardiac catheterization laboratory where his right femoral artery was prepped and draped in usual sterile fashion. Lidocaine 2% was instilled in the right femoral artery to achieve adequate local anesthesia. With modified Seldinger technique, the femoral artery was cannulated and a 6-Fren ch arterial sheath was placed. A 6-Hungarian JL3.5 catheter was used to cannulate the left main berkowitz ry ostium. With contrast injection, multiple views of the left coronary arterial system obtained. JR4 was used to cannulate the right coronary arterial ostium. With contrast injection, multiple vie ws of the right coronary arterial system were obtained. We used an LCB in order to cannulate a sap henous vein graft to the right coronary artery and the JR had additionally been used to cannulate th e left subclavian and subsequently STILL to LAD. After the contrast injection, both of these grafts were adequately visualized. The JR was then additionally used to ____graft. Subsequently, at this time, the catheter was removed and a 6-Hungarian pigtail was passed into the left ventricle. Left vent ricular end-diastolic pressure was measured, pulled back across the aortic valve to assess for signi ficant gradient, which there was not, and placed in the aortic root. At this time, aortic root paula ography was taken x2 at sequential levels to assess for any unidentified grafts which were not foun d. Subsequently, at this time, the catheter was removed. A final angiographic image of the right f emoral arterial insertion site was then obtained, revealing the sheath to be well placed in the righ t common femoral artery. Subsequently, a 6-Hungarian Perclose device was used to seal the vessels, com pleting the procedure. There were no noted complications. FINDINGS: 1. Coronary angiography. Right coronary artery proximally is a 2.5 mm vessel in its mid portion ap pears to be 100% occluded with competitive flow in the distal portion consistent with a patent graft . Prior to that, there are diffuse areas up to 90% stenosis. The left main proximally is a 3.5 mm vessel, free of any significant focal stenoses. Circumflex proximally is a 2 mm vessel and mild dif fuse abnormalities and ____ to the AV groove up to approximately 25%. There are 2 branching obtuse marginals proximal mid each sub 2 mm vessel with diffuse disease up to 90 to 95%. There exists a ra mus branch which ____ 100% occluded. The LAD proximally is a 3 mm vessel and shortly after its take off becomes 100% occluded with competitive flow in distal portions. There additionally exists a diag onal that bifurcated just midway to this stent with an ostial 50% to 60% stenosis, sub 2 mm vessel, which gets retrograde flow initially. Bypass graft angiography revealed a stump presumably to the circumflex distribution, a widely patent STILL to LAD with no intervening stenoses in the subclavian and ____ a reasonable sized distal LAD t hat reaches the apex with no intervening stenosis and a widely patent saphenous vein graft sparing a right coronary artery with no intervening stenosis. It appears to be a septic arthritis that goes both to the posterolateral branch and PDA. Aortic root angiography: This revealed the patient's nenana left and right coronary arteries and th e previously identified saphenous graft to the right and STILL. No other grafts identified. TOTAL FLUOROSCOPY TIME: 16.7 minutes. TOTAL CONTRAST: ____ mL IMPRESSION: 1. Multivessel obstructive nenana coronary artery disease. 2. Widely patent left internal mammary artery to left anterior descending. 3. Widely patent saphenous vein graft to right coronary artery. 4. Presumed occluded saphenous vein graft to circumflex distribution for possible ramus distributio n. RECOMMENDATIONS: In light of procedure and findings at this time would: 1. Maximize medical management. 2. Aggressive risk factor reduction. 3. The patient will be readmitted to the telemetry floor for post-catheterization observation and c ontinued management of symptoms with probable discharge the following day. Dictated By: JHONATAN SOLIS/LU Conf#: [id number] DID#: [id number] CC: ARVIND GALLEGOS MD;*EndCC*
--- NOTE | 2016-09-24 18:13 | CONS ---
Date/Time of Note Date/Time of Note DATE: 09/24/16 TIME: 18:11 Assessment/Plan Assessment/Plan Additional Assessment/Plan Additional Assessment/Plan Additional Assessment/Plan 1. Pancreatitis, recurrent, sonogram of the abdomen is negative except for a gallstone, clinically better amylase lipase almost back to normal. Patient pancreatitis is secondary to alcohol 2. Diabetes mellitus. 3. Positive troponin. 4. Alcohol abuse. 5. History of coronary artery bypass graft. 6. Tobacco usage. 7. The patient's LFTs all within normal limits. 8. Coronary artery disease, multivessel disease Plan Advance the diet IV fluid Pain management Aggressive medical management for coronary artery disease Consultation Date/Type/Reason Admit Date/Time September 15, 2016 at 01:56 Type of Consultation: Cardiology Referring Provider: LUZ GALLEGOS MD 24 HR Interval Summary Constitutional: improved, no complaints Exam/Review of Systems Vital Signs Vitals Vital Signs Date Time Temp Pulse Resp B/P Pulse Ox O2 Delivery O2 Flow Rate FiO2 09/24/16 17:00 83 18 117/70 98 Room Air 09/24/16 15:36 98.0 Intake and Output 09/23/16 09/23/16 09/24/16 15:00 23:00 07:00 Intake Total 1320 ml 500 ml Output Total 900 ml Balance 1320 ml -400 ml Exam Constitutional: alert, oriented, well developed Psych: nl mood/affect, no complaints Head: atraumatic, normocephalic Eyes: EOMI, PERRL, nl conjunctiva, nl lids, nl sclera ENMT: nl external ears & nose, nl lips & teeth, nl nasal mucosa & septum Neck: non-tender, supple Respiratory: clear to auscultation, normal air movement Cardiovascular: nl pulses, regular rate and rhythm Gastrointestinal: nl liver, spleen, non-tender, soft Musculoskeletal: nl extremities to inspection, nl gait and stance Extremities: normal pulses Neurological: STOCKROOM WORKER II-XII intact, nl mental status, nl speech, nl strength Skin: nl turgor, No rash or lesions Lymph: nl lymph nodes Results Result Diagram: 09/23/16 0625 09/23/16 0625 Results 24 hrs Laboratory Tests Test 09/23/16 20:09 09/24/16 02:32 09/24/16 08:03 09/24/16 17:04 Bedside Glucose 229 H 221 H 167 236 H Medications Medications Current Medications Hydralazine HCl (Apresoline) 10 mg Q6H PRN IV ELEVATED BLOOD PRESSURE Last administered on 09/16/16 19:20; Admin Dose 10 MG; Start 09/15/16 at 04:00 Losartan Potassium (Cozaar) 50 mg DAILY PO Last administered on 09/24/16 08:05 ; Admin Dose 50 MG; Start 09/15/16 at 04:00 Diagnostic Test (Pha) (Accu-Chek) 1 ea 02 XX Last administered on 09/24/16 02: 36; Admin Dose 1 EA; Start 09/16/16 at 02:00 Lorazepam (Ativan) 1 mg Q4 PRN IV CONTROL WITHDRAWAL SYMPTOMS; Start 09/15/16 at 10:00 Hydromorphone HCl (Dilaudid) 1 mg Q4H PRN IV PAIN Last administered on 14:31; Admin Dose 1 MG; Start 09/15/16 at 10:30 Miscellaneous Information 1 ea NOTE XX ; Start 09/15/16 at 16:00 Glucose (Glutose) 15 gm Q15M PRN PO DECREASED GLUCOSE; Start 09/15/16 at 16:00 Glucose (Glutose) 22.5 gm Q15M PRN PO DECREASED GLUCOSE; Start 09/15/16 at 16:00 Dextrose (D50w Syringe) 25 ml Q15M PRN IV DECREASED GLUCOSE Last administered on 09/19/16 08:29; Admin Dose 25 ML; Start 09/15/16 at 16:00 Dextrose (D50w Syringe) 50 ml Q15M PRN IV DECREASED GLUCOSE; Start 09/15/16 at 16:00 Glucagon (Glucagen) 1 mg Q15M PRN IM DECREASED GLUCOSE; Start 09/15/16 at 16:00 Glucose (Glutose) 15 gm Q15M PRN BUCCAL DECREASED GLUCOSE; Start 09/15/16 at 16: 00 Metoprolol Tartrate (Lopressor) 25 mg BID PO Last administered on 09/24/16 08: 04; Admin Dose 25 MG; Start 09/15/16 at 21:00 Aspirin (Halfprin) 81 mg DAILY PO Last administered on 09/24/16 08:04; Admin Dose 81 MG; Start 09/16/16 at 09:00 Nifedipine (Procardia Xl) 60 mg DAILY PO Last administered on 09/24/16 08:04; Admin Dose 60 MG; Start 09/17/16 at 09:00 Polyethylene Glycol (Miralax) 17 gm DAILY PRN PO CONSTIPATION Last administered on 09/24/16 06:22; Admin Dose 17 GM; Start 09/16/16 at 20:00 Pantoprazole (Protonix Tab) 40 mg DAILY@06 PO Last administered on 09/24/16 06 :17; Admin Dose 40 MG; Start 09/18/16 at 06:00 Clopidogrel Bisulfate (plaVIX) 75 mg DAILY PO Last administered on 09/24/16 08 :04; Admin Dose 75 MG; Start 09/20/16 at 15:30 Atorvastatin Calcium (Lipitor) 40 mg HS PO Last administered on 09/23/16 20:10 ; Admin Dose 40 MG; Start 09/20/16 at 21:00 Insulin Glargine (Lantus) 18 unit DAILY@20 SC Last administered on 09/23/16 20 :14; Admin Dose 18 UNIT; Start 09/23/16 at 20:00 Isosorbide Mononitrate (Imdur) 60 mg DAILY PO ; Start 09/25/16 at 09:00 Acetaminophen (Tylenol Tab) 650 mg Q4H PRN PO NON-CARDIAC PAIN LEVEL (1-3); Start 09/24/16 at 13:30 Al Hydrox/Mg Hydrox/Simethicone (Mag-Al Plus) 30 ml Q4H PRN PO GASTROINTESTINAL UPSET; Start 09/24/16 at 13:30 Ondansetron HCl (Zofran Inj) 4 mg Q4H PRN IV NAUSEA AND/OR VOMITING; Start at 13:30 TANNA CASAS MD September 24, 2016 18:13
--- NOTE | 2016-09-24 18:14 | CONS ---
Date/Time of Note Date/Time of Note DATE: 09/24/16 TIME: 18:13 Assessment/Plan Assessment/Plan Additional Assessment/Plan Additional Assessment/Plan Additional Assessment/Plan 1. Pancreatitis, recurrent, sonogram of the abdomen is negative except for a gallstone, clinically better amylase lipase almost back to normal. Patient pancreatitis is secondary to alcohol 2. Diabetes mellitus. 3. Positive troponin. 4. Alcohol abuse. 5. History of coronary artery bypass graft. 6. Tobacco usage. 7. The patient's LFTs all within normal limits. Plan Advance the diet IV fluid Pain management We will review coronary angiogram report Consultation Date/Type/Reason Admit Date/Time September 15, 2016 at 01:56 Type of Consultation: Cardiology Referring Provider: LUZ GALLEGOS MD 24 HR Interval Summary Free Text/Dictation Patient was seen by me yesterday 09/23/2016 Still complains of epigastric discomfort. Pain is reduced. No nausea no vomiting. Patient is scheduled for a coronary angiogram today. Exam/Review of Systems Vital Signs Vitals Vital Signs Date Time Temp Pulse Resp B/P Pulse Ox O2 Delivery O2 Flow Rate FiO2 09/24/16 17:00 83 18 117/70 98 Room Air 09/24/16 15:36 98.0 Intake and Output 09/23/16 09/23/16 09/24/16 15:00 23:00 07:00 Intake Total 1320 ml 500 ml Output Total 900 ml Balance 1320 ml -400 ml Exam Constitutional: alert, oriented, well developed Psych: nl mood/affect, no complaints Head: atraumatic, normocephalic Eyes: EOMI, PERRL, nl conjunctiva, nl lids, nl sclera ENMT: nl external ears & nose, nl lips & teeth, nl nasal mucosa & septum Neck: non-tender, supple Respiratory: clear to auscultation, normal air movement Cardiovascular: nl pulses, regular rate and rhythm Gastrointestinal: nl liver, spleen, non-tender, soft Musculoskeletal: nl extremities to inspection, nl gait and stance Extremities: normal pulses Neurological: MACHINE GUIDE BASE WINDER II-XII intact, nl mental status, nl speech, nl strength Skin: nl turgor, No rash or lesions Lymph: nl lymph nodes Results Result Diagram: 09/23/16 0625 09/23/16 0625 Results 24 hrs Laboratory Tests Test 09/23/16 20:09 09/24/16 02:32 09/24/16 08:03 09/24/16 17:04 Bedside Glucose 229 H 221 H 167 236 H Medications Medications Current Medications Hydralazine HCl (Apresoline) 10 mg Q6H PRN IV ELEVATED BLOOD PRESSURE Last administered on 09/16/16 19:20; Admin Dose 10 MG; Start 09/15/16 at 04:00 Losartan Potassium (Cozaar) 50 mg DAILY PO Last administered on 09/24/16 08:05 ; Admin Dose 50 MG; Start 09/15/16 at 04:00 Diagnostic Test (Pha) (Accu-Chek) 1 ea 02 XX Last administered on 09/24/16 02: 36; Admin Dose 1 EA; Start 09/16/16 at 02:00 Lorazepam (Ativan) 1 mg Q4 PRN IV CONTROL WITHDRAWAL SYMPTOMS; Start 09/15/16 at 10:00 Hydromorphone HCl (Dilaudid) 1 mg Q4H PRN IV PAIN Last administered on 14:31; Admin Dose 1 MG; Start 09/15/16 at 10:30 Miscellaneous Information 1 ea NOTE XX ; Start 09/15/16 at 16:00 Glucose (Glutose) 15 gm Q15M PRN PO DECREASED GLUCOSE; Start 09/15/16 at 16:00 Glucose (Glutose) 22.5 gm Q15M PRN PO DECREASED GLUCOSE; Start 09/15/16 at 16:00 Dextrose (D50w Syringe) 25 ml Q15M PRN IV DECREASED GLUCOSE Last administered on 09/19/16 08:29; Admin Dose 25 ML; Start 09/15/16 at 16:00 Dextrose (D50w Syringe) 50 ml Q15M PRN IV DECREASED GLUCOSE; Start 09/15/16 at 16:00 Glucagon (Glucagen) 1 mg Q15M PRN IM DECREASED GLUCOSE; Start 09/15/16 at 16:00 Glucose (Glutose) 15 gm Q15M PRN BUCCAL DECREASED GLUCOSE; Start 09/15/16 at 16: 00 Metoprolol Tartrate (Lopressor) 25 mg BID PO Last administered on 09/24/16 08: 04; Admin Dose 25 MG; Start 09/15/16 at 21:00 Aspirin (Halfprin) 81 mg DAILY PO Last administered on 09/24/16 08:04; Admin Dose 81 MG; Start 09/16/16 at 09:00 Nifedipine (Procardia Xl) 60 mg DAILY PO Last administered on 09/24/16 08:04; Admin Dose 60 MG; Start 09/17/16 at 09:00 Polyethylene Glycol (Miralax) 17 gm DAILY PRN PO CONSTIPATION Last administered on 09/24/16 06:22; Admin Dose 17 GM; Start 09/16/16 at 20:00 Pantoprazole (Protonix Tab) 40 mg DAILY@06 PO Last administered on 09/24/16 06 :17; Admin Dose 40 MG; Start 09/18/16 at 06:00 Clopidogrel Bisulfate (plaVIX) 75 mg DAILY PO Last administered on 09/24/16 08 :04; Admin Dose 75 MG; Start 09/20/16 at 15:30 Atorvastatin Calcium (Lipitor) 40 mg HS PO Last administered on 09/23/16 20:10 ; Admin Dose 40 MG; Start 09/20/16 at 21:00 Insulin Glargine (Lantus) 18 unit DAILY@20 SC Last administered on 09/23/16 20 :14; Admin Dose 18 UNIT; Start 09/23/16 at 20:00 Isosorbide Mononitrate (Imdur) 60 mg DAILY PO ; Start 09/25/16 at 09:00 Acetaminophen (Tylenol Tab) 650 mg Q4H PRN PO NON-CARDIAC PAIN LEVEL (1-3); Start 09/24/16 at 13:30 Al Hydrox/Mg Hydrox/Simethicone (Mag-Al Plus) 30 ml Q4H PRN PO GASTROINTESTINAL UPSET; Start 09/24/16 at 13:30 Ondansetron HCl (Zofran Inj) 4 mg Q4H PRN IV NAUSEA AND/OR VOMITING; Start at 13:30 TANNA CASAS MD September 24, 2016 18:14
--- NOTE | 2016-09-24 19:57 | PN ---
Date/Time of Note Date/Time of Note DATE: 09/24/16 TIME: 19:56 Assessment/Plan VTE Prophylaxis VTE Prophylaxis Intervention: other Lines/Catheters IV [facility] Urinary Cath still in place: No Assessment/Plan Chief Complaint/Hosp Course IMPRESSION: 1. The patient has uncontrolled diabetes mellitus.non compliance wmeds and diet on insulin 2. NSTEMI 3. Alcohol abuse. 4. Positive troponin. 5 pancreatitis 6 htn 7 DM plan per gi and cardio NEED CATH PER DR TURNER DM CONTROL Problems: Subjective 24 Hr Interval Summary Cardiovascular: no complaints Gastrointestinal: no complaints Exam/Review of Systems Vital Signs Vitals Vital Signs Date Time Temp Pulse Resp B/P Pulse Ox O2 Delivery O2 Flow Rate FiO2 09/24/16 17:00 83 18 117/70 98 Room Air 09/24/16 15:36 98.0 Intake and Output 09/23/16 09/23/16 09/24/16 15:00 23:00 07:00 Intake Total 1320 ml 500 ml Output Total 900 ml Balance 1320 ml -400 ml Exam Cardiovascular: regular rate and rhythm Gastrointestinal: soft Musculoskeletal: nl extremities to inspection Extremities: normal pulses Results Result Diagram: 09/23/16 0625 09/23/16 0625 Results 24 hrs Laboratory Tests Test 09/23/16 20:09 09/24/16 02:32 09/24/16 08:03 09/24/16 17:04 Bedside Glucose 229 H 221 H 167 236 H Medications Medications Current Medications Hydralazine HCl (Apresoline) 10 mg Q6H PRN IV ELEVATED BLOOD PRESSURE Last administered on 09/16/16 19:20; Admin Dose 10 MG; Start 09/15/16 at 04:00 Losartan Potassium (Cozaar) 50 mg DAILY PO Last administered on 09/24/16 08:05 ; Admin Dose 50 MG; Start 09/15/16 at 04:00 Diagnostic Test (Pha) (Accu-Chek) 1 ea 02 XX Last administered on 09/24/16 02: 36; Admin Dose 1 EA; Start 09/16/16 at 02:00 Lorazepam (Ativan) 1 mg Q4 PRN IV CONTROL WITHDRAWAL SYMPTOMS; Start 09/15/16 at 10:00 Hydromorphone HCl (Dilaudid) 1 mg Q4H PRN IV PAIN Last administered on 18:27; Admin Dose 1 MG; Start 09/15/16 at 10:30 Miscellaneous Information 1 ea NOTE XX ; Start 09/15/16 at 16:00 Glucose (Glutose) 15 gm Q15M PRN PO DECREASED GLUCOSE; Start 09/15/16 at 16:00 Glucose (Glutose) 22.5 gm Q15M PRN PO DECREASED GLUCOSE; Start 09/15/16 at 16:00 Dextrose (D50w Syringe) 25 ml Q15M PRN IV DECREASED GLUCOSE Last administered on 09/19/16 08:29; Admin Dose 25 ML; Start 09/15/16 at 16:00 Dextrose (D50w Syringe) 50 ml Q15M PRN IV DECREASED GLUCOSE; Start 09/15/16 at 16:00 Glucagon (Glucagen) 1 mg Q15M PRN IM DECREASED GLUCOSE; Start 09/15/16 at 16:00 Glucose (Glutose) 15 gm Q15M PRN BUCCAL DECREASED GLUCOSE; Start 09/15/16 at 16: 00 Metoprolol Tartrate (Lopressor) 25 mg BID PO Last administered on 09/24/16 08: 04; Admin Dose 25 MG; Start 09/15/16 at 21:00 Aspirin (Halfprin) 81 mg DAILY PO Last administered on 09/24/16 08:04; Admin Dose 81 MG; Start 09/16/16 at 09:00 Nifedipine (Procardia Xl) 60 mg DAILY PO Last administered on 09/24/16 08:04; Admin Dose 60 MG; Start 09/17/16 at 09:00 Polyethylene Glycol (Miralax) 17 gm DAILY PRN PO CONSTIPATION Last administered on 09/24/16 06:22; Admin Dose 17 GM; Start 09/16/16 at 20:00 Pantoprazole (Protonix Tab) 40 mg DAILY@06 PO Last administered on 09/24/16 06 :17; Admin Dose 40 MG; Start 09/18/16 at 06:00 Clopidogrel Bisulfate (plaVIX) 75 mg DAILY PO Last administered on 09/24/16 08 :04; Admin Dose 75 MG; Start 09/20/16 at 15:30 Atorvastatin Calcium (Lipitor) 40 mg HS PO Last administered on 09/23/16 20:10 ; Admin Dose 40 MG; Start 09/20/16 at 21:00 Insulin Glargine (Lantus) 18 unit DAILY@20 SC Last administered on 09/23/16t 20 :14; Admin Dose 18 UNIT; Start 09/23/16 at 20:00 Isosorbide Mononitrate (Imdur) 60 mg DAILY PO ; Start 09/25/16 at 09:00 Acetaminophen (Tylenol Tab) 650 mg Q4H PRN PO NON-CARDIAC PAIN LEVEL (1-3); Start 09/24/16 at 13:30 Al Hydrox/Mg Hydrox/Simethicone (Mag-Al Plus) 30 ml Q4H PRN PO GASTROINTESTINAL UPSET; Start 09/24/16 at 13:30 Ondansetron HCl (Zofran Inj) 4 mg Q4H PRN IV NAUSEA AND/OR VOMITING; Start at 13:30 LUZ GALLEGOS MD September 24, 2016 19:57
--- NOTE | 2016-09-24 20:34 | RADRPT ---
Vent Rate: 66 bpm RR Interval: 0 msec [place] Interval: 120 msec QRS Duration: 88 msec QT Interval: 396 msec QTC Interval: 415 msec P-R-T [place]: 79 - 63 - -15 degrees Normal sinus rhythm Possible Left atrial enlargement Nonspecific T wave abnormality Abnormal ECG Electronically Signed By: Daron Green [id number]
[2016-09-24] MEDS: ATORVASTATIN 40 MG TAB PO SCH (20:35)
[2016-09-24] MEDS: INSULIN GLARGINE [LANtus] 3 ML PEN SC SCH (20:39)
[2016-09-25] VITALS (8 sets, daily range): BP systolic 120–168; BP diastolic 57–91; PULSE 77–83; RESP 18–20
[2016-09-25] MEDS: ACCU-CHEK XX SCH (01:57)
[2016-09-25] MEDS: HYDROmorphONE 1 MG/ML SYG IV PRN ×3 (02:50→12:04)
[2016-09-25] MEDS: PANTOPRAZOLE (EC) 40 MG TAB PO SCH (05:31)
[2016-09-25] MEDS: INSULIN ASPART [NOVOLOG] 3 ML PEN SC SCH ×4 (08:00→12:05)
[2016-09-25 08:06] LABS: CALCIUM 10.6 mg/dl (8.4-10.2); CREATININE 0.88 mg/dl (0.61-1.24); POTASSIUM 4.5 mmol/L (3.5-5.1)
[2016-09-25] MEDS: ASPIRIN (EC) 81 MG TAB PO SCH (08:11)
[2016-09-25] MEDS: METOPROLOL 25 MG TAB PO SCH (08:11)
[2016-09-25] MEDS: CLOPIDOGREL 75 MG TAB PO SCH (08:11)
[2016-09-25] MEDS: NIFEdipine (XL) 60 MG TAB PO SCH (08:12)
[2016-09-25] MEDS: LOSARTAN 50 MG TAB PO SCH (08:12)
[2016-09-25] MEDS ORDERED: ISOSORBIDE MONONITRATE(SR)30 MG TAB PO SCH (09:00)
--- NOTE | 2016-09-25 12:53 | PDOCDIS ---
Discharge Instructions CONDITION Patient Condition: Stable HOME CARE INSTRUCTIONS: Special Diet: low fat/chol ACTIVITY: Activity Restrictions: Slowly Increase Activity FOLLOW UP/APPOINTMENTS Appointments f/u own pcp [address] lund 1 wk LUZ GALLEGOS MD September 25, 2016 12:53
[2016-09-25] MEDS ORDERED: PANT40TA4 PO (12:58)
[2016-09-25] MEDS ORDERED: ASPI-664 PO (12:58)
[2016-09-25] MEDS ORDERED: LOSA50TA2 PO (12:58)
[2016-09-25] MEDS ORDERED: ATOR40TA68 PO (12:58)
[2016-09-25] MEDS ORDERED: ISOS30TA5 PO (12:58)
[2016-09-25] MEDS ORDERED: LANT3I SC (12:58)
[2016-09-25] MEDS ORDERED: METO-448 PO (12:58)
[2016-09-25] MEDS ORDERED: CLOP75TA28 PO (12:58)
[2016-09-25] MEDS ORDERED: NIFE60TA7 PO (12:58)
[2016-09-25] MEDS ORDERED: NOVO3I SC (12:58)
[2016-09-25] MEDS ORDERED: POLY17PO6 PO (12:58)
--- NOTE | 2016-09-25 19:24 | CONS ---
Date/Time of Note Date/Time of Note DATE: 09/25/16 TIME: 19:23 Assessment/Plan Assessment/Plan Additional Assessment/Plan Additional Assessment/Plan 1. Pancreatitis, recurrent, sonogram of the abdomen is negative except for a gallstone, clinically better amylase lipase almost back to normal. Patient pancreatitis is secondary to alcohol 2. Diabetes mellitus. 3. Positive troponin. 4. Alcohol abuse. 5. History of coronary artery bypass graft. 6. Tobacco usage. 7. The patient's LFTs all within normal limits. 8. Multivessel coronary artery disease Plan Advance the diet IV fluid Pain management Refrain from alcohol We will follow in the office Consultation Date/Type/Reason Admit Date/Time September 15, 2016 at 01:56 Type of Consultation: Cardiology Referring Provider: LUZ GALLEGOS MD 24 HR Interval Summary Free Text/Dictation Patient was seen by me in the morning he complains of minor epigastric pain Exam/Review of Systems Vital Signs Vitals Vital Signs Date Time Temp Pulse Resp B/P Pulse Ox O2 Delivery O2 Flow Rate FiO2 09/25/16 12:29 83 09/25/16 11:22 98.7 20 120/57 95 09/24/16 17:00 Room Air Intake and Output 09/24/16 09/24/16 09/25/16 15:00 23:00 07:00 Intake Total 1035 ml 500 ml Output Total 1100 ml 1200 ml Balance -65 ml -700 ml Exam Constitutional: alert, oriented, well developed Psych: nl mood/affect, no complaints Head: atraumatic, normocephalic Eyes: EOMI, PERRL, nl conjunctiva, nl lids, nl sclera ENMT: nl external ears & nose, nl lips & teeth, nl nasal mucosa & septum Neck: non-tender, supple Respiratory: clear to auscultation, normal air movement Cardiovascular: nl pulses, regular rate and rhythm Gastrointestinal: nl liver, spleen, non-tender, soft Musculoskeletal: nl extremities to inspection, nl gait and stance Extremities: normal pulses Neurological: [employer]ING [employer]IC II-XII intact, nl mental status, nl speech, nl strength Skin: nl turgor, No rash or lesions Lymph: nl lymph nodes Results Result Diagram: 09/23/16 0625 09/25/16 0639 Results 24 hrs Laboratory Tests Test 09/24/16 20:34 09/25/16 01:55 09/25/16 06:39 09/25/16 07:59 Bedside Glucose 146 272 H 115 Sodium Level 133 L Potassium Level 4.5 Chloride Level 98 Carbon Dioxide Level 27 Anion Gap 13 Blood Urea Nitrogen 16 Creatinine 0.88 Glucose Level 159 Calcium Level 10.6 H Test 09/25/16 10:12 09/25/16 11:59 Bedside Glucose 98 122 TANNA CASAS MD September 25, 2016 19:24
== END 2016-09-25 13:50 | disposition home or self-care (01) | DRG 280 ==
LOC: E/R 22:58 → MS4 09-15 01:56
PROVIDERS: ADMIT Internal Medicine Nephrology; ATTEND Internal Medicine Nephrology
PROC: C22G1ZZ Tomographic (Tomo) Nuclear Medicine Imaging of Myocardium using Technetium 99m (Tc-99m) (ICD-10-PCS; 2016-09-19)
PROC: 4A02XM4 Measurement of Cardiac Total Activity, External Approach (ICD-10-PCS; 2016-09-19)
PROC: 3E033HZ Introduction of Radioactive Substance into Peripheral Vein, Percutaneous Approach (ICD-10-PCS; 2016-09-19)
PROC: B310YZZ Fluoroscopy of Thoracic Aorta using Other Contrast (ICD-10-PCS; 2016-09-24)
PROC: B213YZZ Fluoroscopy of Multiple Coronary Artery Bypass Grafts using Other Contrast (ICD-10-PCS; 2016-09-24)
PROC: B218YZZ Fluoroscopy of Left Internal Mammary Bypass Graft using Other Contrast (ICD-10-PCS; 2016-09-24)
PROC: 4A023N7 Measurement of Cardiac Sampling and Pressure, Left Heart, Percutaneous Approach (ICD-10-PCS; principal; 2016-09-24 13:30)
DX: I21.4 Non-ST elevation (NSTEMI) myocardial infarction (principal); K85.20 Alcohol induced acute pancreatitis without necrosis or infection; E11.65 Type 2 diabetes mellitus with hyperglycemia; F10.188 Alcohol abuse with other alcohol-induced disorder; Z91.14 Patient's other noncompliance with medication regimen; F17.200 Nicotine dependence, unspecified, uncomplicated; I10 Essential (primary) hypertension; E78.5 Hyperlipidemia, unspecified; I25.10 Atherosclerotic heart disease of native coronary artery without angina pectoris; Z95.1 Presence of aortocoronary bypass graft; Z87.898 Personal history of other specified conditions; D64.9 Anemia, unspecified
CPT/HCPCS: 36415; 71010; 76705; 78452; 80048; 80053; 80061; 80306; 80307; 81001; 81003; 82150; 82550; 82553; 82962; 83036; 83605; 83690; 84484; 85025; 85610; 93005; 93017; 93306; 93459; 96374; 96375; 96376; A9500; A9505; C1760; C1769; C1887; C1894; C9113; J0360; J0692; J1170; J1644; J1815; J2060; J2250; J2405; J2765; J2785; J3010; J3370; J3411; J3480; J7030; J7042; Q9967

== ENCOUNTER 2016-12-10 19:30 | Emergency (ER) | payer OTHER ==
[~2016-12-10] VITALS: Ht 165.1 cm; Wt 65.0 kg
[~2016-12-10 19:30] MED LIST: ASPI-664 PO; ATOR40TA68 PO; CLOP75TA28 PO; ISOS30TA5 PO; LANT3I SC; LOSA50TA2 PO; METO-448 PO; NIFE60TA7 PO; NOVO3I SC; PANT40TA4 PO; POLY17PO6 PO
[2016-12-10 19:34] VITALS: Ht 165.1 cm; Wt 65.0 kg
[2016-12-10] MEDS ORDERED: ONDANSETRON 4 MG INJ IV STA ×2 (20:04→23:04)
[2016-12-10] MEDS ORDERED: SOD CHLORIDE 0.9% 1,000 ML IV STA (20:04)
[2016-12-10] MEDS ORDERED: HYDROmorphONE 1 MG/ML SYG IV STA ×2 (20:04→23:04)
[2016-12-10 21:33] LABS: BASOPHILS % 0.3 % (0.0-2.0); EOSINOPHILS # 0.1 10^3/ul (0.0-0.5); EOSINOPHILS % 1.9 % (0.0-7.0); HEMATOCRIT 23.1 % (42.0-52.0); HEMOGLOBIN 8.4 g/dl (14.0-18.0); LYMPHOCYTES # 1.9 10^3/ul (0.8-2.9); LYMPHOCYTES % 50.7 % (15.0-51.0); MEAN CORPUSCULAR HEMOGLOBIN 33.6 pg (29.0-33.0); MEAN CORPUSCULAR HGB CONC 36.4 g/dl (32.0-37.0); MEAN CORPUSCULAR VOLUME 92.4 fl (82.0-101.0); MEAN PLATELET VOLUME 8.2 fl (7.4-10.4); MONOCYTE # 0.3 10^3/ul (0.3-0.9); MONOCYTES % 9.1 % (0.0-11.0); NEUTROPHIL # 1.4 10^3/ul (1.6-7.5); PLATELET COUNT 205 10^3/UL (140-415); RED CELL DISTRIBUTION WIDTH 13.1 % (11.5-14.5); WHITE BLOOD COUNT 3.7 10^3/ul (4.8-10.8)
[2016-12-10 21:46] LABS: ALBUMIN 2.5 g/dl (3.3-4.9); ALBUMIN/GLOBULIN RATIO 1.04; CALCIUM 6.4 mg/dl (8.4-10.2); CREATININE 0.52 mg/dl (0.61-1.24); TOTAL PROTEIN 4.9 g/dl (6.1-8.1)
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
[2016-12-10] MEDS ORDERED: SOD CHLORIDE 0.9% 100 ML ONE (22:09)
[2016-12-10] MEDS ORDERED: IODIXANOL LOCM 100 ML BTL ONE (22:09)
[2016-12-10 22:17] LABS: POTASSIUM 2.7 mmol/L (3.5-5.1)
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
[2016-12-10] MEDS ORDERED: POTASSIUM CHLORIDE 40 MEQ in SOD CHLORIDE 0.9% 1,000 ML IV SCH (22:30)
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
[2016-12-10] MEDS ORDERED: LORAZEPAM 2 MG INJ IV ONE (23:30)
[2016-12-10] MEDS ORDERED: HYDR-902 PO (23:34)
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
[2016-12-11] MEDS ORDERED: METOCLOPRAMIDE 10 MG INJ IV ONE
[2016-12-11 03:42] VITALS: BP 125/79; PULSE 73; RESP 20; TEMP 97.8
== END 2016-12-11 03:53 | disposition home or self-care (01) ==
LOC: E/R 19:30
DX: S39.81XA Other specified injuries of abdomen, initial encounter (principal); E87.6 Hypokalemia; E11.9 Type 2 diabetes mellitus without complications; F17.210 Nicotine dependence, cigarettes, uncomplicated; R51 Headache; Y08.89XA Assault by other specified means, initial encounter; Z79.4 Long term (current) use of insulin; Z79.82 Long term (current) use of aspirin; Z95.1 Presence of aortocoronary bypass graft
CPT/HCPCS: 36415; 70450; 70486; 74177; 80053; 83690; 85025; 96374; 96375; 96376; J1170; J2060; J2405; J2765; J3480; J7030; Q9967; Z7502; Z7610

== ENCOUNTER 2017-08-16 16:33 | Emergency (ER) | END 2017-08-16 17:50 | disposition left against medical advice (07) ==

== ENCOUNTER 2017-08-31 15:37 | Inpatient (IN) | END 2017-09-04 16:35 | disposition home or self-care (01) | DRG 369 ==

== ENCOUNTER 2017-10-26 17:10 | Inpatient (IN) | END 2017-10-29 15:25 | disposition home health service (06) | DRG 68 ==

== ENCOUNTER 2018-03-19 15:28 | Emergency (ER) | END 2018-03-19 20:10 | disposition home or self-care (01) ==